=== PATIENT | male | born 1960 | race Caucasian/White ===

== ENCOUNTER 2023-11-04 22:18 | Observation (INO) | payer BC, SELFPAY ==
[2023-11-04] VITALS (7 sets, daily range): BP systolic 225–242; BP diastolic 110–134; PULSE 105–125; TEMP 36.6; O2SAT 92–94; BMI 38.6
--- NOTE | 2023-11-04 22:33 | ECG_ITS ---
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
--- NOTE | 2023-11-04 22:33 | XR_ITS ---
The [address] [address] Patient Name: ALBIN BARRY MRN: [id number] date: 1960 Sex: M Assigned Patient Location: ER Current Patient Location: ER Accession/Order Number: [id number] Exam Date: 11/04/2023 22:50 Report Date: 11/05/2023 00:19 At the request of: TIFFANIE SANCHEZ Procedure: XR chest 1V CXR HISTORY: Shortness of breath COMPARISON: None. TECHNIQUE: 1 view of the chest. FINDINGS: Lungs are adequately expanded. The cardiac silhouette measures enlarged. Pulmonary vascularity is increased. Osseous structures are within normal limits for age. XR/XR chest 1V IMPRESSION: Cardiomegaly with prominence of pulmonary vascularity. Please correlate for fluid overload. Electronically authenticated by: PREETHI CARTER Date: 11/05/2023 00:19
--- NOTE | 2023-11-04 22:35 | ED_ITS ---
HPI - SOB/Dyspnea General Chief Complaint: Shortness of Breath/Dyspnea Stated Complaint: Shortness of Breath Time Seen by Provider: 11/04/23 22:28 History of Present Illness HPI Narrative: history of HTN. Has not taken meds for at least 2 months for his BP. Tonight presents with mild sensation of shortness of breath that started about 30 min ago. No associated chest pain or nausea. Dyspnea sensation does not change when walking Related Data Home Medications ?Medication ?Instructions ?Recorded ?Confirmed aspirin 81 mg capsule 81 mg PO DAILY 11/04/23 11/04/23 Allergies Allergy/AdvReac Type Severity Reaction Status Date / Time No Known Drug Allergies Allergy Verified 11/04/23 22:26 Review of Systems ROS Status of ROS 10 or more systems reviewed and unremark able except as noted in history and below PFSH PFSH Social History Little interest or pleasure in doing things: not at all Feeling down, depressed, or hopeless: not at all Exam Constitutional Vital Signs, click to edit/add: Last Vital Signs Temp 97.8 F 11/04/23 22:22 Pulse 103 H 11/05/23 00:18 Resp 18 11/05/23 00:18 BP 223/111 H 11/05/23 00:18 Pulse Ox 99 11/05/23 00:18 O2 Del Method Room Air 11/05/23 00:18 Common normals: no apparent distress, average body habitus, oriented x3, no limitations, healthy appearing, alert and well nourished [facility] Common normals: normocephalic and head/scalp atraumatic Eye Common normals: EOMs intact bilaterally and conjunctivae normal Respiratory Common normals: normal respiratory effort, no retractions, no use of accessory muscles and clear to auscultation bilaterally Cardio Common normals: regular rate, regular rhythm, S1 normal heart sound and S2 normal heart sound GI Common normals: Normal to inspection, nondistended, normoactive bowel sounds present, soft to palpation and non-tender Extremity Common normals: normal to inspection and full ROM Neuro Common normals: oriented x3, CN's II-XII intact bilaterally, moves all extremities and no focal motor deficits Psych Appearance: grossly normal Course Vital Signs Vital signs: Vital Signs Temperature 97.8 F 11/04/23 22:22 Pulse Rate 125 H 11/04/23 22:22 Respiratory Rate 18 11/04/23 22:22 Blood Pressure 242/134 H 11/04/23 22:22 Pulse Oximetry 92 L 11/04/23 22:22 Oxygen Delivery Method Room Air 11/04/23 22:22 Temperature 97.8 F 11/04/23 22:22 Pulse Rate 103 H 11/05/23 00:18 Respiratory Rate 18 11/05/23 00:18 Blood Pressure 223/111 H 11/05/23 00:18 Pulse Oximetry 99 11/05/23 00:18 Oxygen Delivery Method Room Air 11/05/23 00:18 MDM - SOB/Dyspnea MDM Narrative Medical decision making narrative: patient presents with complaint of shortness of breath. No chest pain. Past history of HTN but has not taken any BP meds for over 2 months. BP on arrival 242 systolic. BP improved to 192 systolic with treatment in the department. cxray with cardiomegaly and pulm. vascular congestion. EKG sinus tach without acute ST-T changes. Tropon and d-dimer neg. BNP pending. Discussed with hospitalist and patient accepted for admission Lab Data Labs: Lab Results 11/04/23 Range/Units 22:38 WBC 8.7 (4.0-11.0) 10^3/uL RBC 5.66 (4.70-6.10) 10^6/uL Hgb 16.5 (14.0-18.0) g/dL Hct 49.3 (42.0-54.0) % MCV 87.1 (80.0-94.0) fL MCH 29.2 (25.9-34.0) pg MCHC 33.5 (29.9-35.2) g/dL RDW 14.1 (11.0-15.0) % Plt Count 295 (150-450) 10^3/uL MPV 9.5 (9.5-13.5) fL Neut % (Auto) 47.1 (43.0-75.0) % Lymph % (Auto) 40.2 (20.5-60.0) % [place] % (Auto) 7.1 (1.7-12.0) % Eos % (Auto) 4.5 (0.9-7.0) % Baso % (Auto) 0.5 (0.2-2.0) % Neut # (Auto) 4.1 (1.4-6.5) 10^3/uL Lymph # (Auto) 3.5 (1.2-3.8) 10^3/uL [place] # (Auto) 0.6 (0.3-0.8) 10^3/uL Eos # (Auto) 0.4 (0.0-0.7) 10^3/uL Baso # (Auto) 0.0 (0.0-0.1) 10^3/uL Abs Immat Gran (auto) 0.05 H (0.00-0.03) 10^3/uL Imm/Tot Granulo (auto) 0.6 H (0.0-0.5) % D-Dimer 0.59 (<=0.59) mg/L FEU Sodium 138 (136-145) mmol/L Potassium 3.2 L (3.5-5.1) mmol/L Chloride 99 (98-107) mmol/L Carbon Dioxide 30.2 (21.0-32.0) mmol/L Anion Gap 12.0 BUN 13.0 (7.0-18.0) mg/dL Creatinine 1.22 (0.70-1.30) mg/dL Est GFR ( Amer) >60 (>=60) Est GFR (Non-Af Amer) >60 (>=60) BUN/Creatinine Ratio 10.7 Glucose 137 H (74-106) mg/dL Calcium 9.1 (8.5-10.1) mg/dL Troponin I High Sens 33.9 (4.0-76.1) pg/mL Imaging Data Chest x-ray: Radiologist's impression: ITS Impressions Chest X-Ray 11/04/23 22:33 IMPRESSION: Cardiomegaly with prominence of pulmonary vascularity. Please correlate for fluid overload. Electronically authenticated by: PREETHI CARTER Date: 11/05/2023 00:19 Discharge Plan Discharge Chief Complaint: Shortness of Breath/Dyspnea Clinical Impression: Congestive heart failure, Hypertension Patient Disposition: Admitted as Observation Prescriptions / Home Meds: No Action aspirin 81 mg capsule 81 mg PO DAILY Print Language: German Referrals: TIFFANIE MONTANEZ [Primary Care Provider] - 1 week
[2023-11-04 22:45] LABS: Basophils Percent Auto 0.5 % (0.2-2.0); Eosinophils Absolute Auto 0.4 10^3/uL (0.0-0.7); Eosinophils Percent Auto 4.5 % (0.9-7.0); Hematocrit 49.3 % (42.0-54.0); Hemoglobin 16.5 g/dL (14.0-18.0); Immature Granulocytes Abs Auto 0.05 10^3/uL (0.00-0.03); Immature Granulocytes Pct Auto 0.6 % (0.0-0.5); Lymphocytes Absolute Auto 3.5 10^3/uL (1.2-3.8); Lymphocytes Percent Auto 40.2 % (20.5-60.0); Mean Corpuscular HGB Conc 33.5 g/dL (29.9-35.2); Mean Corpuscular Hemoglobin 29.2 pg (25.9-34.0); Mean Corpuscular Volume 87.1 fL (80.0-94.0); Mean Platelet Volume 9.5 fL (9.5-13.5); Monocytes Absolute Auto 0.6 10^3/uL (0.3-0.8); Monocytes Percent Auto 7.1 % (1.7-12.0); Neutrophils Absolute Auto 4.1 10^3/uL (1.4-6.5); Neutrophils Percent Auto 47.1 % (43.0-75.0); Platelet Count 295 10^3/uL (150-450); Red Blood Count 5.66 10^6/uL (4.70-6.10); Red Cell Distribution Width 14.1 % (11.0-15.0); White Blood Count 8.7 10^3/uL (4.0-11.0)
[2023-11-04] MEDS: HYDRALAZINE HCL 20 MG/ML VIAL 5 MG IVP (22:47)
[2023-11-04] MEDS: CLONIDINE HCL 0.1 MG TABLET PO (22:48)
[2023-11-04 23:02] LABS: BUN Creatinine Ratio 10.7; Calcium 9.1 mg/dL (8.5-10.1); Carbon Dioxide 30.2 mmol/L (21.0-32.0); Chloride 99 mmol/L (98-107); Estimated GFR (African America >60 (>=60); Estimated GFR (Non-African Ame >60 (>=60); Glucose 137 mg/dL (74-106); Potassium 3.2 mmol/L (3.5-5.1); Sodium 138 mmol/L (136-145); Troponin I High Sensitivity 33.9 pg/mL (4.0-76.1)
[2023-11-04 23:08] LABS: D Dimer 0.59 mg/L FEU (<=0.59)
[2023-11-04] MEDS: HYDRALAZINE HCL 20 MG/ML VIAL 10 MG IVP (23:25)
[2023-11-05] VITALS (18 sets, daily range): BP systolic 143–223; BP diastolic 89–119; PULSE 66–103; TEMP 36.3–36.6; O2SAT 91–99; BMI 38.0
[2023-11-05] MEDS: CLONIDINE HCL 0.1 MG TABLET 0.2 MG PO (00:15)
[2023-11-05] MEDS: AMLODIPINE BESYLATE 5 MG TABLET 10 MG PO ×2 (02:09→08:41)
[2023-11-05] MEDS: POTASSIUM BICARBONATE/CIT 25 MEQ TABLET EFF 50 MEQ PO (02:09)
[2023-11-05 02:56] LABS: Troponin I High Sensitivity 63.6 pg/mL (4.0-76.1)
[2023-11-05 06:10] LABS: Hematocrit 46.5 % (42.0-54.0); Hemoglobin 15.3 g/dL (14.0-18.0); Mean Corpuscular HGB Conc 32.9 g/dL (29.9-35.2); Mean Corpuscular Hemoglobin 28.8 pg (25.9-34.0); Mean Corpuscular Volume 87.6 fL (80.0-94.0); Platelet Count 283 10^3/uL (150-450); Red Blood Count 5.31 10^6/uL (4.70-6.10); Red Cell Distribution Width 14.2 % (11.0-15.0); White Blood Count 7.3 10^3/uL (4.0-11.0)
[2023-11-05 06:39] LABS: Estimated Average Glucose 131 mg/dL; Glycohemoglobin A1C 6.2 % (4.5-6.2)
[2023-11-05 06:48] LABS: Chol HDL Ratio 5.2; Cholesterol 208 mg/dL (<=200); HDL Cholesterol 40 mg/dL (40-60); Triglycerides 135 mg/dL (<=150)
[2023-11-05 06:49] LABS: Anion Gap 8.3; Carbon Dioxide 31.8 mmol/L (21.0-32.0); Chloride 103 mmol/L (98-107); Glucose 135 mg/dL (74-106); Potassium 4.1 mmol/L (3.5-5.1); Sodium 139 mmol/L (136-145)
[2023-11-05 06:50] LABS: Alanine Aminotransferase 31 U/L (16-63); Albumin Globulin Ratio 1.1; Albumin Level 3.5 g/dL (3.4-5.0); Alkaline Phosphatase 112 U/L (46-116); Aspartate Amino Transferase 18 U/L (15-37); BUN Creatinine Ratio 11.7; Bilirubin Total 1.1 mg/dL (0.2-1.0); Calcium 9.1 mg/dL (8.5-10.1); Estimated GFR (African America >60 (>=60); Estimated GFR (Non-African Ame >60 (>=60); Globulin 3.2 g/dL; Total Protein 6.7 g/dL (6.4-8.2)
[2023-11-05 06:52] LABS: Thyroid Stimulating Hormone 2.331 uIU/mL (0.358-3.740)
--- NOTE | 2023-11-05 07:00 | CA_ITS ---
Patient Name: ALBIN BARRY MR#: [id number] : 1960 Exam Date: 11/05/2023 Ordering Doctor: CLEO PORTILLO ECHOCARDIOGRAM REPORT PROCEDURE: CA ECHO DOPPLER COMPLETE INDICATIONS: Acute CHF COMPARISON: None. DESCRIPTION: COMPLETE ECHOCARDIOGRAM Real-time transthoracic echocardiography with 2D, M-mode, spectral and color flow Doppler performed. QUALITY: Technical quality was good. LEFT VENTRICLE: Normal chamber size. Moderate concentric left ventricular hypertrophy. LV EF: Global left ventricular systolic function is at lower normal limits; visually estimated ejection fraction is 50-55%. No obvious wall motion abnormalities. DIASTOLIC: Normal diastolic function. ATRIAL SEPTUM: Inadequately seen. LEFT ATRIUM: Normal chamber size. RIGHT ATRIUM: Normal chamber. RIGHT VENTRICLE: Normal chamber size. Normal right ventricular systolic function. TRICUSPID VALVE: Normal mobility and thickness. No stenosis with trivial regurgitation. No evidence of pulmonary hypertension. RVSP 17mmHg MITRAL VALVE: Normal mobility and thickness. No evidence of mitral valve stenosis. There is no mitral annular calcification. Trivial mitral regurgitation. AORTIC VALVE: Normal trileaflet appearance. Mildly calcified aortic valve. Mildly diminished mobility. No aortic valve stenosis. No aortic regurgitation. AORTIC ROOT: Normal diameter and appearance. PULMONIC VALVE: Normal thickness and mobility. No stenosis. Trivial regurgitation. PERICARDIUM: No evidence of pericardial effusion. IVC: Collapses with inspirations. Normal size. CONCLUSION: 1. Global left ventricular systolic function is lower normal limits; visually estimated ejection fraction is 50 to 55% 2. Normal right ventricular size and systolic function 3. Normal diastolic function 4. The left atrium is normal in size 5. Moderate left ventricular hypertrophy 6. No significant valvular abnormalities Adult Echocardiography Procedure Report Left Ventricle LVEDD (3.7 - 5.6 cm): 4.51 cm LVESD (2.2 - 4.0 cm): 3.74 cm LVIVS thickness (0.6 - 1.2 cm): 1.37 cm LVPW thickness (0.5 - 1.0 cm): 1.34 cm e': 0.06 m/s E - e': 11.74 LVOT Max Gradient: 2.38 mm-55 LVOT Area (cm2): 0.77 m/s Peak Velocity (LVOT): 0.77 m/s Mean Velocity (LVOT): 0.47 m/s LVOT Diameter 2.05 cm Left Ventricular Ejection Fraction: 49.27 % Left Atrium LA Volume Index (2D A2C): 35.84 ml/m2 Left Atrium Systolic Dimension: 4.19 cm Mitral Valve MV E to A Ratio: 1.17 Mitral Valve A-Wave Peak Velocity: 0.62 m/s Mitral Valve E-Wave Peak Velocity: 0.73 m/s Right Ventricle RV Internal Diastolic Dimension: 3.10 cm Aorta AO Root Diam: 3.15 cm Ascending Ao Diam: 2.76 cm Aortic Valve AoV Area (Peak Tyler): 1.64 cm2, 1.71 cm2 AoV Area (VTI): 1.84 cm2, 1.95 cm2 Peak Velocity(Antegrade Flow): 1.50 m/s, 1.62 m/s Peak Gradient(Antegrade Flow): 8.94 mm[Hg], 10.55 mm[Hg] Mean Velocity(Antegrade Flow): 1.11 m/s, 1.16 m/s Mean Gradient(Antegrade Flow): 5.56 mm[Hg], 6.07 mm[Hg] Velocity Time Integral: 30.89 cm, 34.69 cm Tricuspid Valve Peak Velocity (Regurgitant Flow): 1.85 m/s, 1.90 m/s, 1.88 m/s Pulmonic Valve Mean Gradient: 1.70 mm[Hg] Mean Velocity: 0.61 m/s Peak Velocity: 0.87 m/s, 0.86 m/s Peak Gradient: 3.06 mm[Hg], 2.96 mm[Hg] Right Atrium Right Atrium Systolic Pressure: 56.78 ml, 56.78 ml Dictated by: Seferino Daley M.D. on 11/07/2023 at 08:44 Approved by: Seferino Daley M.D. on 11/07/2023 at 08:48
[2023-11-05] MEDS: CARVEDILOL 25 MG TABLET PO (08:41)
[2023-11-05] MEDS: FUROSEMIDE 40 MG/4 ML VIAL IVP (08:41)
[2023-11-05] MEDS: ASPIRIN 81 MG TABLET.DR PO (08:41)
[2023-11-05] MEDS: LOSARTAN POTASSIUM 50 MG TABLET 100 MG PO (08:41)
--- NOTE | 2023-11-05 10:19 | CM.NOTE ---
Rounds made with Dr. Edward. Dr. Edward reviews findings with Mr. Todd and medication changes/adjustments. Mr. Todd verbalizes understanding. Potential discharge later today.
--- NOTE | 2023-11-05 11:06 | PM.HP ---
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 His BP on arrival was as high as 240/120. Work up in ED also revealed vascular congestion on CXR. Patient's BP was treated overnight with clonidine, IV hydralazine and he was treated with IV lasix for SOB sec to volume overload. Patient was seen earlier today and reported that he felt better and had no active symptoms to offer. He reports not using his BP meds for over a month now. Denies CP, SOB, palpitations. Denies prior hx of CAD/CHF. He is unsure of his medication list. He was started on amlodipine/coreg at night and I added losartan to his BP regimen. ECHO ordered to assess cardiac structure (unofficial reading) revealed mildly reduced EF. Patient's BP is better with resumption of his antihypertensives. He will need close f/u as outpatient. patient instructed to check BP at home, maintain home BP log and F/u with PCP so that his medications could be adjusted as outpatient. Patient educated on worrisome signs and symptoms including CP, SOB, neurological weakness/numbness that should prompt him to seek care in ED. Medically stable for discharge. Opioid HPI Opioid Management Most Recent Pain and Opioid Data: Last Pain Assessment 11/05/23 13:11 Last ORT Total Score 0 11/05/23 02:00 Last ORT Risk Category Low Risk 11/05/23 02:00 Review of Systems ROS Status of ROS 10 or more systems reviewed and unremarkable except as noted in history and below PFSH PFS Medical History (Updated 11/05/23 @ 14:20 by Shaikh Cheyanne MD) Acute on chronic diastolic heart failure ?I50.33 - Acute on chronic diastolic (congestive) heart failure (ICD-10) HLD (hyperlipidemia) ?E78.5 - Hyperlipidemia, unspecified (ICD-10) Hypertension ?I10 - Essential (primary) hypertension (ICD-10) Family History (Updated 11/05/23 @ 01:51 by Madison Donovan) Grandmother Family history of CHF (congestive heart failure) Mother Family history of cancer Family history of hypertension Family history of myocardial infarction Family history of stroke Father Family history of cancer Social History (Updated 11/05/23 @ 11:13 by Shaikh Cheyanne MD) Within the past year, how often did you have a drink containing alcohol: monthly or less Do you use any of these nicotine containing products: smokeless tobacco Non-prescribed substance use: denies use 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 Highest level of school completed/degree received: 12th grade, no diploma Are you now , , , , never or living with a partner: In a typical week, how many times do you talk on the telephone with family, friends, or neighbors: never How often do you get together with friends or relatives: never Little interest or pleasure in doing things: not at all Feeling down, depressed, or hopeless: not at all Feel stressed/tense/nervous/anxious/difficulty sleeping: not at all Meds Home Medications and Allergies Home Medications ?Medication ?Instructions ?Recorded ?Confirmed ?Type aspirin 81 mg capsule 81 mg PO DAILY 11/04/23 11/04/23 History chlorthalidone 25 mg tablet 25 mg PO DAILY 11/05/23 11/05/23 History Allergies Allergy/AdvReac Type Severity Reaction Status Date / Time No Known Drug Allergies Allergy Verified 11/04/23 22:26 Exam Constitutional Vital Signs, click to edit/add: Last Vital Signs Temp 97.7 F 11/05/23 08:48 Pulse 74 11/05/23 10:00 Resp 16 11/05/23 08:48 BP 190/109 H 11/05/23 08:48 Pulse Ox 94 L 11/05/23 08:48 O2 Del Method Room Air 11/05/23 08:48 Results Labs Labs: Short CBC 11/04/23 11/05/23 Range/Units 22:38 05:25 WBC 8.7 7.3 (4.0-11.0) 10^3/uL Hgb 16.5 15.3 (14.0-18.0) g/dL Hct 49.3 46.5 (42.0-54.0) % Plt Count 295 283 (150-450) 10^3/uL BMP 11/04/23 11/05/23 22:38 05:25 Sodium 138 139 Potassium 3.2 L 4.1 Chloride 99 103 Carbon Dioxide 30.2 31.8 BUN 13.0 12.0 Creatinine 1.22 1.03 Glucose 137 H 135 H Calcium 9.1 9.1 Liver Function 11/05/23 Range/Units 05:25 Total Bilirubin 1.1 H (0.2-1.0) mg/dL AST 18 (15-37) U/L ALT 31 (16-63) U/L Alkaline Phosphatase 112 (46-116) U/L Albumin 3.5 (3.4-5.0) g/dL Assessment and Plan Assessment and Plan (1) Hypertensive emergency: Assessment and Plan: Poorly controlled BP. Initial readings were 240/120. Slowly brought down with oral clonidine,IV hydralazine and resuming his home medications p/w SOB due to volume overload - symptoms resolved now with IV lasix. No prior hx of CHF. Trop x 3 negative. Patient has resistant HTN and will benefit from w/u for secondary causes of HTN. He is also obese and will benefit from weight loss. (2) Acute on chronic systolic (congestive) heart failure: Assessment and Plan: Cardiomegaly and increased vascular congestion on CXR. ECHO shows Mildly reduced EF (40%) that is an unofficial read. Awaiting full ECHO report by Industrial Truck Operator. Needs strict BP control. Educated on dietary restrictions. He will also need outpatient stress test and f/u with Cardiology. (3) HLD (hyperlipidemia): Assessment and Plan: Not using Statin - resume 20 mg Lipitor. He was on 80 mg as outpatient. Qualifiers: Hyperlipidemia type: unspecified Qualified Code(s): E78.5 - Hyperlipidemia, unspecified Plan Stable for discharge on Coreg 25 q12, Amlodipine 10 mg, Lasix 20 mg, Losartan 100, Aldactone 50 mg. He will need outpatient stress test and f/u with Cardiology for new onset HFrEF He was instructed to measure BP at home, and f/u with PCP with home BP log so that his medications can be adjusted according to his Home BP.
[2023-11-05] MEDS: SPIRONOLACTONE 25 MG TABLET 50 MG PO (13:10)
--- NOTE | 2023-11-07 11:54 | CM.DCFOLLOWU ---
Person spoke with: patient How are you feeling? well How is your pain? none Did you understand your discharge instructions? yes Do you have any questions about your discharge instructions? no Were you given any prescriptions at discharge? yes Were you able to get your prescriptions filled?yes Do you understand how to take your medications as ordered?yes Do you have any questions about your follow up appointment and do you plan to keep your follow up appointment? no questions, follow up reviewed Is there anything else that you would like to discuss? no Questions/Comments/Concerns/Other:none
== END 2023-11-05 15:15 | disposition home or self-care (01) ==
LOC: ER 11-05 00:45 → MS 11-05 01:35
PROVIDERS: Registered Nurse; Admitting Provider Internal Medicine; Emergency Provider Internal Medicine; PCP Internal Medicine; Visit Provider Internal Medicine
DX: I16.1 Hypertensive emergency (principal); I11.0 Hypertensive heart disease with heart failure; I50.23 Acute on chronic systolic (congestive) heart failure; I1A.0 Resistant hypertension; Z79.899 Other long term (current) drug therapy; E78.5 Hyperlipidemia, unspecified; F17.220 Nicotine dependence, chewing tobacco, uncomplicated
CPT/HCPCS: 36415; 71045; 80048; 80053; 80061; 83036; 83880; 84443; 84484; 85025; 85027; 85378; 93005; 93306; 93356; 96374; 96375; 96376; 99285; G0378; J0360; J1940

== ENCOUNTER 2023-11-24 08:33 | Outpatient (OUT) | payer BC, SELFPAY ==
--- OUTSIDE RECORDS SUMMARY | 2023-11-24 08:37 | XMS_ITS | CCD ---
Author Organization [place] [facility] [facility] Care Team Providers Care Airplane Patrol Pilot Name Role Phone TIFFANIE MONTANEZ ROBERT Unavailable Unavailable TIFFANIE MONTANEZ Unavailable Unavailable MIS, DR HUERTA Primary Care Unavailable LISSETH, DR MORENO Attending Unavailable LISSETH, DR MORENO Consulting Unavailable LISSETH, DR MOREON Admitting Unavailable TIFFANIE MONTANEZ Attending Unavailable TIFFANIE MONTANEZ Referring Unavailable Problems Problem Classification Problem Date Documented Date Episodic/Chronic Coronary atherosclerosis and other heart disease (2 sources) Coronary atherosclerosis and other heart disease Onset: 02-06-2017 Disorders of lipid metabolism (1 source) Mixed hyperlipidemia; Translations: [Mixed hyperlipidemia] Onset: 02-06-2017 Chronic Other nutritional; endocrine; and metabolic disorders (4 sources) Hypercalcemia; Translations: [HYPERCALCEMIA] Onset: 01-26-2021 Chronic Results Test Name Value Interpretation Reference Range Facility Basic Metabolic Panelon 03-0 Anion gap [Moles/Vol] 19 mmol/L Normal 12-[address] [facility] [address] [facility] [employer] Comment on above: Result Comment: Effe ctive 02/17/2019 reference range changed. Performed By: #### B MP #### [facility] [address] [place], [place] [id number] Calcium [Mass/Vol] 9.9 mg/dL Normal 8.6-10.[address] [facility] [address] [facility] [employer] Comment on above: Performed By: #### B MP #### [facility] [address] [place], [place] [id number] Chloride [Moles/Vol] 99 mmol/L Normal 98-107 [facility] [address] [employer] Comment on above: Performed By: #### B MP #### [facility] [address] [place], [place] [id number] CO2 [Moles/Vol] 25 mmol/L Normal 20-31 [facility] Comment on above: Performed By: #### B MP #### [facility] [address] [place], [place] [id number] Creatinine [Mass/Vol] 1.4 mg/dL Normal 0.7-1.4 [facility] Comment on above: Performed By: #### B MP #### [facility] [address] [facility] [place] [id number] eGFRAA 64 mL/min/1.73m2 Normal >60 [facility] Comment on above: Performed By: #### B MP #### [facility] [address] [place] [id number] eGFRNAA 53 mL/min/1.73m2 Low >60 [facility] Comment on above: Performed By: #### B MP #### [facility] [address] [place], [place] [id number] Glucose [Mass/Vol] 120 mg/dL High 65-99 [facility] Comment on above: Result Comment: For FASTING Glucose --- ADA reference ranges: Normal 65-99 mg/dl Prediabetes 100-125 Diabetes >/= 126 Performed By: #### B MP #### [facility] [address] [place], [place] [id number] Potassium [Moles/Vol] 4.4 mmol/L Normal 3.5-5.5 [facility] Comment on above: Performed By: #### B MP #### [facility] [address] [facility] [place] [id number] Sodium [Moles/Vol] 139 mmol/L Normal 135-146 [facility] Comment on above: Performed By: #### B MP #### [facility] [address] [facility] [place] [id number] Urea nitrogen [Mass/Vol] 28 mg/dL High 7-25 [facility] Specialist Comment on above: Performed By: #### B MP #### [facility] [address] [place], [place] [id number] Hemoglobin A1Con 04-20-2021 EAG 145.59 Normal [facility] Comment on above: Performed By: #### A 1C #### [facility] [address] [place], [place] [id number] HbA1c (Bld) [Mass fraction] 6.7 % High 4.0-6.[address] [facility] [address] [facility] [employer] Comment on above: Performed By: #### A 1C #### [facility] [address] [place], [place] [id number] PROF CHEM 8 (BAS METB)on Anion gap [Moles/Vol] 10.4 mmol/L Normal [facility] Comment on above: Performed By: #### B MP #### [facility] [address] [place] [address] [address] Angela Abraham Calcium [Mass/Vol] 10.0 mg/dL Normal 8.4-10.2 [facility] Comment on above: Performed By: #### B MP #### [facility] [address] [address] [address] Angela Abraham Chloride [Moles/Vol] 99 mmol/L Normal 98-[address] [facility] Comment on above: Performed By: #### B MP #### [facility] [address] [address] [address] Angela Abraham CO2 [Moles/Vol] 31.9 mmol/L Critically high 22.0-30.[address] [facility] Comment on above: Performed By: #### B MP #### [facility] [address] [address] [address] Angela Abraham Creatinine [Mass/Vol] 1.31 mg/dL Critically high 0.66-1.[address] [facility] Comment on above: Performed By: #### B MP #### [facility] [address] [address] [address] Angela Abraham EGFR-AF NEW ZEALANDER >60 Normal >=60 [facility] Comment on above: Performed By: #### B MP #### [facility] [address] [address] [address] Angela Abraham EGFR-NON AF NEW ZEALANDER 56 mL/min/1.73m2 Critically low >=[address] [facility] Comment on above: Performed By: #### B MP #### [facility] [address] [address] [address] Angela Abraham Glucose [Mass/Vol] 112 mg/dL Critically high 74-106 [facility] Comment on above: Performed By: #### B MP #### [facility] [address] [address] [address] Angela Abraham Potassium [Moles/Vol] 4.3 mmol/L Normal 3.4-5.[address] [facility] Comment on above: Performed By: #### B MP #### [facility] [address] [address] [address] Angela Abraham Sodium [Moles/Vol] 137 mmol/L Normal 137-145 [facility] Comment on above: Performed By: #### B MP #### [facility] [address] [address] [address] Angela Abraham Urea nitrogen [Mass/Vol] 28.0 mg/dL Critically high 9.0-20.[address] [facility] Comment on above: Performed By: #### B MP #### [facility] [address] [address] [address] Angela Abraham Urea nitrogen/Creatinine [Mass ratio] 21.4 mg/mg Normal [facility] Comment on above: Performed By: #### B MP #### [facility] [address] [address] [address] Angela Abraham Q - PROTEIN ELECTROPHORESIS, WITH TOTAL PROTEIN AND RFX TO IFon 01-14-2021 Albumin [Mass/Vol] 4.3 g/dL Normal 3.8-4.[address] [facility] [address] [employer] Comment on above: Order Comment: [facility] Testing performed at: [facility], [facility], [address] [facility], [address] [place] [address], [place], [id number], Compliance Review Officer: Remington Montiel MD [facility] Collection Date/Time: [facility] Results Received Date/Time: [facility] Reported Date/Time: Performed By: #### 1 0269 #### [facility] [address] [place] [address] ALPHA 1 GLOBULIN 0.3 g/dL Normal 0.2-0.[address] [place] [address] [employer] Comment on above: Order Comment: [facility] Testing performed at: [facility], [facility], [address] [facility], [address] [place] [address], [address] [place] [address], Compliance Review Officer: Remington Montiel MD [facility] Date/Time: [facility] Results Received Date/Time: [facility] Reported Date/Time: Performed By: #### 1 0269 #### [facility] [address] [place] [address] ALPHA 2 GLOBULIN 1.0 g/dL High 0.5-0.[address] [place] [address] [facility] [employer] Comment on above: Order Comment: [facility] performed at: [facility], [facility], [address] [facility], [address] [place] [address], [address] [place] [address], Compliance Review Officer: Remington Montiel MD [facility] Date/Time: [facility] Results Received Date/Time: [facility] Reported Date/Time: Performed By: #### 1 0269 #### [facility] [address] [place] [address] BETA 1 GLOBULIN 0.5 g/dL Normal 0.4-0.[address] [place] [address] [employer] Comment on above: Order Comment: [facility] performed at: [facility], [facility], [address] [place] , [address] [place] [address], [address] [place] [address], Compliance Review Officer: Remington Montiel MD [facility] Date/Time: [facility] Results Received Date/Time: [facility] Reported Date/Time: Performed By: #### 1 0269 #### [facility] [address] [place] [address] BETA 2 GLOBULIN 0.4 g/dL Normal 0.2-0.[address] [place] [address] [employer] Comment on above: Order Comment: [facility] performed at: Q, [facility], [address] [facility], [address] [place] [address], [address] [place] [address], Compliance Review Officer: Remington Montiel MD [facility] Date/Time: [facility] Results Received Date/Time: [facility] Reported Date/Time: Performed By: #### 1 0269 #### [facility] [address] [place] [address] GAMMA GLOBULIN 1.0 g/dL Normal 0.8-1.7 [facility] Specialist Comment on above: Order Comment: [facility] performed at: [employer], [facility], [address] [place] , [address] [place] [address], [address] [place] [address], Compliance Review Officer: Remington Montiel MD [facility] Date/Time: [facility] Results Received Date/Time: [facility] Reported Date/Time: Performed By: #### 1 0269 #### [facility] [address] [place] [address] INTERPRETATION Isolated elevation o f alpha-2 globulins. Suggestive of acute inflammation. Normal [facility] Comment on above: Order Comment: [facility] performed at: [employer], [facility], [address] [place] , [address] [place] [address], [address] [place] [address], Compliance Review Officer: Remington Montiel MD [facility] Date/Time: [facility] Results Received Date/Time: [facility] Reported Date/Time: Performed By: #### 1 0269 #### [facility] [address] [place] [address] Protein [Mass/Vol] 7.5 g/dL Normal 6.1-8.1 [facility] Comment on above: Order Comment: [facility] performed at: [employer] [employer], [facility], [address] [place] , [address] [place] [address], [address] [place] [address], Compliance Review Officer: Remington Montiel MD [facility] Date/Time: [facility] Results Received Date/Time: [facility] Reported Date/Time: Performed By: #### 1 0269 #### [facility] [address] [place] [address] OVER READ - NCon 02-07-20 17 OVER READ - NC DATE OF EXAM: Feb 06 2017 12:25PMCLINICAL HISTORY/ Name: ALBIN BARRYSTUDY: OVER READ - NC; 02/06/2017 12:25 pmINDICATION:score. Hypertension and hypercholesterolemia. Smoking history. Screening.COMPARISON:N one. [facility]:TIFFANIE VALE:Hipolito hendrix unenhanced axial images were obtained through the mid chest for calcium score evaluation. Calcium score portion will be interpreted separately. Images are submitted for over-read.FINDINGS:No lymphadenopathy is seen. No pericardial effusion. Included esophageal segment and included portion of the upper abdomen are unremarkable. There is mild linear atelectasis versus scar of the lingula. No pleural effusion or pneumothorax is seen. Multilevel anterior endplate spurring present in the lower thoracic spine.CONCLUSION: IMPRESSION:No significant incidental findings.This interpretation, provided by the radiologists of [facility], excludes evaluation of the cardiovascular system, which iscovered in a separate report issued by the ordering cardiologists. The radiologists of [facility] have no responsibilityfor evaluating the structures of the cardiovascular system. Normal [facility] Healthcare Encounters Encounter Date Encounter Type Care Provider Facility Start: 11-12-2023 End: 11-12-2023 ambulatory TIFFANIE MONTANEZ Not Available Start: 01-26-2021 End: 01-27-[address] DOCTOR RAYGOZA Facility:H1 Start: 02-06-2017 Ambulatory TIFFANIE MONTANEZ Facility :[id number] Start: 02-06-2017 Ambulatory Facility:9 573 Payers Date Payer Category Payer Unknown [id number] 1960 Unknown [id number] 1960 Unknown [id number] 1958 Unknown [id number] Unknown JHONNY TALAMANTES Summary Purpose Family History No Family History Records FoundNo Family History Records FoundNo Family History Records FoundNo Family History Records FoundNo Family History Records Found Advance Directives No Advanced Directives Records FoundNo Advanced Directives Records FoundNo Advanced Directives Records FoundNo Advanced Directives Records FoundNo Advanced Directives Records Found Additional Source Comments (unrecognized sect ion and content) No Status Records FoundNo Status Records FoundNo Status Records FoundNo Status Records FoundNo Status Records Found INFORMATION SOURCE (unrecogn ized section and content) DATE CREATED AUTHOR 08/07/2017 [facility] DATE CREATED AUTHOR AUTHOR'S ORGANIZ ATION 08/07/2017 [facility] DATE CREATED AUTHOR AUTHOR'S ORGANIZ ATION 02/01/2021 [facility] DATE CREATED AUTHOR AUTHOR'S ORGANIZ ATION 04/22/2021 [facility] Special[facility] DATE CREATED AUTHOR AUTHOR'S ORGANIZ ATION 11/13/2023 [facility] Specialists [facility] FOR RECORDS PERTAINING TO PATIENTS WHO ARE OR HAVE BEEN ENROLLED IN A CHEMICAL DEPENDENCY/SUBSTANCEABUSE PROGRAM, SOME INFORMATION MAY BE OMITTED. This clinical summary was aggregated from multiple sources. Caution should be exercised in using it in the provision of clinical care. This summary normalizes information from multiple sources, and as a consequence, information in this document may materially change the coding, format and clinical context of patient data. In addition, data may be omitted in some cases. CLINICAL DECISIONS SHOULD BE BASED ON THE PRIMARY CLINICAL RECORDS. [facility] [employer] [facility]. provides no warranty or guarantee of the accuracy or completeness of information in this document.
[2023-11-24 09:35] LABS: Creatinine Urine Random 97.22 mg/dL (20.00-300.00); Microalbum Creatinine Ratio Ur 16.4 mg/g (0.0-29.9); Microalbumin Urine Random 1.6 mg/dL (<=30.0)
[2023-11-24 10:02] LABS: Prostate Specific Antigen Scrn 2.14 ng/mL (<=4.00)
[2023-11-24 10:12] LABS: Alanine Aminotransferase 45 U/L (16-63); Albumin Globulin Ratio 1.1; Albumin Level 3.9 g/dL (3.4-5.0); Alkaline Phosphatase 123 U/L (46-116); Anion Gap 15.6; Aspartate Amino Transferase 29 U/L (15-37); BUN Creatinine Ratio 12.8; Bilirubin Total 1.7 mg/dL (0.2-1.0); Calcium 9.6 mg/dL (8.5-10.1); Carbon Dioxide 23.2 mmol/L (21.0-32.0); Chloride 102 mmol/L (98-107); Chol HDL Ratio 3.4; Cholesterol 138 mg/dL (<=200); Estimated GFR (African America >60 (>=60 mL/min/1.73m^2); Estimated GFR (Non-African Ame >60 (>=60 mL/min/1.73m^2); Globulin 3.7 g/dL; Glucose 146 mg/dL (74-106); HDL Cholesterol 41 mg/dL (40-60); LDL Cholesterol Calculated 73.2 mg/dL; Potassium 4.8 mmol/L (3.5-5.1); Sodium 136 mmol/L (136-145); Total Protein 7.6 g/dL (6.4-8.2); Triglycerides 119 mg/dL (<=150); VLDL CHOLESTEROL 23.8 mg/dL
== END 2023-11-24 08:34 | disposition home or self-care (01) ==
LOC: LAB 08:35
PROVIDERS: PCP Internal Medicine; Visit Provider Internal Medicine
DX: I50.1 Left ventricular failure, unspecified (principal); I11.9 Hypertensive heart disease without heart failure; Z12.5 Encounter for screening for malignant neoplasm of prostate
CPT/HCPCS: 36415; 80053; 80061; 82043; 82172; 82570; 83880; G0103

== ENCOUNTER 2024-10-25 09:13 | Outpatient (OUT) | payer BC, SELFPAY ==
--- OUTSIDE RECORDS SUMMARY | 2024-10-25 09:17 | XMS_ITS | Encounter Summary ---
Author Organization [facility] Address [id number] [address] [place] [address] Care Team Providers Care Clerical Manager Name Role Phone Edgard Wright DO Primary Care Provider [phone]- [phone] Reason for Visit * Reason Comments Med Refill Encounter Details Date Type Department Care Team (Late st Contact Info) Description 10/23/2016 Refill [facility] [address] [place] [address] [place] [address] Bowen Bryant DO [address] [facility] [address] Social History Tobacco Use Types Packs/Day Years Used Date Smoking Tobacco: Never Assessed Sex and Gender Information Value Date Recorded Sex Assigned at Not on file Legal Sex Male 11:35 AM EDT Gender Identity Not on file Sexual Orientation Not on file documented as of this encounter Miscellaneous Notes * Telephone Encounter - Bowen Bryant DO - 10/23/2016 5:21 PM EDT Pt needs appt some time before he runs out of med documented in this encounter Plan of Treatment Not on file documented as of this encounter Visit Diagnoses Not on filedocumented in this encounter Care Teams Clerical Manager Relationship Specialty Start Date End Date Edgard Wright DO [address] [place] [address] PCP - General 03/05/17 documented as of this encounter
--- OUTSIDE RECORDS SUMMARY | 2024-10-25 09:17 | XMS_ITS | Clinical Summary ---
Author Organization [facility] Address [address] [place] [address] Phone Care Team Providers Care Coconut Jelly Roller Name Role Phone Unavailable Primary Care Provider Unavailabl e Social History Tobacco Use Types Packs/Day Years Used Date Smoking Tobacco: Never Assessed Sex and Gender Information Value Date Recorded Sex Assigned at Not on file Legal Sex Male 10:10 AM EST Gender Identity Not on file Sexual Orientation Not on file Plan of Treatment Not on file
--- OUTSIDE RECORDS SUMMARY | 2024-10-25 09:17 | XMS_ITS | Clinical Summary ---
Author Organization [employer] [facility] Address [id number] [address] [place] [address] Care Team Providers Care Info Specialist Name Role Phone Edgard Wright DO Primary Care Provider [phone] Allergies No known active allergies Medications metoprolol tartrate (LOPRESSOR) 100 mg tablet Take 100 mg by mouth 2 (two) times a day. Active amLODIPine (NORVASC) 10 mg tablet Take 10 mg by mouth daily. Active furosemide (LASIX) 20 mg tablet Take 20 mg by mouth daily. Active pramipexole (MIRAPEX) 0.5 mg tablet Take 0.5 mg by mouth daily. Active Family History Medical History Relation Name Comments Heart attack Brother Heart attack Mother Relation Name Status Comments Brother Alive Father Alive Mother Alive Sister Alive Social History Tobacco Use Types Packs/Day Years Used Date Smoking Tobacco: Never Smokeless Tobacco: Current Snuff Alcohol Use Standard Drinks/Week Comments Yes 0 (1 standard drink = 0.6 oz pur e alcohol) occasional Childcare Answer Date Recorded Childcare Unknown 07/24/2018 Employment Answer Date Recorded Employment Unknown 07/24/2018 Purpose - Life Answer Date Recorded Purpose and direction in life Unknown Sex and Gender Information Value Date Recorded Sex Assigned at Not on file Legal Sex Male 11:35 AM EDT Gender Identity Not on file Sexual Orientation Not on file Last Filed Vital Signs Vital Sign Reading Time Taken Comments Blood Pressure 132/76 02/23/2016 2:25 PM EST Pulse 76 02/23/2016 2:25 PM EST Temperature - - Respiratory Rate 16 03/07/2017 8:14 AM EST Oxygen Saturation - - Inhaled Oxygen Concentration - - Weight 104.3 kg (230 lb) 03/07/2017 8:14 AM EST Height 162.6 cm (5' 4 ) 03/07/2017 8:14 AM EST Body Mass Index 39.48 03/07/2017 8:14 AM EST Plan of Treatment Health Maintenance Due Date Last Done Comments Depression Screening 1973 Tobacco Screening 1973 Adult BMI Screening 12/14/1979 DTaP,Tdap and Td Vaccines (1 - Tdap) 1980 Zoster (Shingles) Vaccine (1 of 2) 12/14/2011 Influenza Vaccine 10/13/2024 Medical Devices Not on file Insurance [employer] Member Subscriber Plan / Payer (Ef fective 2017-Present) Name:Roel Todd Relation to Subscriber:Self Name:Roel Todd Payer ID:Not on file Type:Not on file Address: [place] [id number] Care Teams Info Specialist Relationship Specialty Start Date End Date Edgard Wright DO [address] [place] [address] PCP - General 03/05/17
--- OUTSIDE RECORDS SUMMARY | 2024-10-25 09:17 | XMS_ITS | Clinical Summary ---
Author Organization [facility] Address [address] [place] [address] Care Team Providers Care Order Control Clerk Blood Bank Name Role Phone Edgard Wright DO Unavailable [phone] Mayte Sewell MD Unavailable [phone] Allergies Active Allergy Reactions Criticality Noted Date Comments Semaglutide Other: See Comments 01/29/2024 dizziness Spironolactone Other: See Comments 01/29/2024 Breast tenderness Medications amLODIPine (NORVASC) 5 mg tablet Take 5 mg by mouth once daily. 11/30/19 24 Active aspirin, enteric coated (ASPIRIN, ENTERIC COATED) 81 mg EC tablet Take 81 mg by mouth once daily. Active carvedilol (COREG) 25 mg tablet Take 25 mg by mouth two times a day with meals. Active eplerenone (INSPRA) 50 mg tablet Take 50 mg by mouth two times a day. Active isosorbide mononitrate ER (IMDUR) 60 mg 24 hr tablet Take 60 mg by mouth once daily. 12/17/19 24 025 Active losartan (COZAAR) 100 mg tablet Take 100 mg by mouth once daily. 11/05/19 24 Active MOUNJARO 2.5 mg/0.5 mL pen injector Inject 5 mg subcutaneously one time a week. 11/23/19 24 Active nitroglycerin sublingual (NITROQUICK) 0.4 mg SL tablet Dissolve 0.4 mg under the tongue every 5 minutes as needed. 12/17/19 24 025 Active atorvastatin (LIPITOR) 40 mg tablet Take 1 tablet by mouth once daily. 90 tablet 3 03/31/19 25 Active Encounters Date Type Department Care Team Description 09/24/2024 Patient [facility] HB-[address] [place] [address] Tiffany Sanchez RPh At your next appointment, choose [facility]. 08/30/2024 Telephone Cardiology [address] [id number] Mayte Sewell MD Appointment (Dr. Sewell will be out of the office on November 24, so the appointment has been canceled and rescheduled for December 29. I spoke with the patient this morning, and he said the new day and time were okay.) from Last 3 Months Family History Medical History Relation Comments No Known Problems Brother Cancer Father Coronary Artery Disease Mother stents Heart Attack Mother Hypertension Mother Stroke Mother No Known Problems Sister Relation Status Comments Brother Alive Father Mother Sister Alive Social History Tobacco Use Types Packs/Day Years Used Date Smoking Tobacco: Never Smokeless Tobacco: Current Snuff Tobacco Cessation:Ready to Q uit: Not Asked; Counseling Given: Not Answered Alcohol Use Standard Drinks/Week Comments Yes 0 (1 standard drink = 0.6 oz pur e alcohol) [facility] Area Deprivation Index Answer Date Rahul rded National Score (1-100), lower number is lower ri sk 64 01/29/2024 State Score (1-10), lower number is lower risk 4 01/29/2024 Data from: https://www.neigh borhoodatlas.medicine.[facility]/. Last address used for calculation [address] 01/29/2024 Sex and Gender Information Value Date Recorded Sex Assigned at Male 03/31/2024 6:54 PM EST Legal Sex Male 9:18 AM EST Gender Identity Not on file Sexual Orientation Not on file Last Filed Vital Signs Vital Sign Reading Time Taken Comments Blood Pressure 146/73 05/21/2024 8:12 AM EDT Pulse 82 05/21/2024 8:12 AM EDT Temperature 36.2 C (97.2 F) 04/08/2024 9:31 AM EST Respiratory Rate 15 05/21/2024 8:12 AM EDT Oxygen Saturation 97% 05/21/2024 8:12 AM EDT Inhaled Oxygen Concentration - - Weight 96.4 kg (212 lb 9.6 oz) 05/21/2024 8:12 A M EDT Height 162.6 cm (5' 4 ) 05/21/2024 8:12 AM EDT Body Mass Index 36.49 05/21/2024 8:12 AM EDT Plan of Treatment Upcoming Encounters Date Type Department Care Team (Late st Contact Info) Description 12/29/2024 10:00 AM EST Results Only Main [place] [facility] Draw Station [address] [id number] LAB WORK 12/29/2024 10:30 AM EST Office Visit Cardiology [address] [place] [address] Mayte Sewell MD [address] [place] [address] DX: Cath follow up Established intervention patient Health Maintenance Due Date Last Done Comments Diabetic Foot Exam 12/14/1971 Dilated Retinal Exam 12/14/1971 Urine Albumin:Creatinine Ratio 12/14/1971 Annual PCP Team Chronic Disease Visit 12/14/1979 Anxiety Screening 12/14/1979 Depression Screening 12/14/1979 HIV Screening 12/14/1979 Hepatitis C Screening 12/14/1979 DTaP,Tdap,Td Vaccine (1 - Tdap) 1980 Pneumococcal Vaccine: 50+ (1 of 2 - PCV) 1980 CT Colonography 2006 Colonoscopy 2006 Fecal Occult Blood 2006 Prostate Cancer Screening Discussion 2006 Sigmoidoscopy 2006 Shingrix Vaccine (1 of 2) 12/14/2011 Cologuard (FIT-DNA) 07/27/2023 07/26/2020 Colorectal Cancer Screening 07/27/2023 HbA1C 06/15/2024 12/17/2023 Influenza Vaccine (#1) 2024 01/21/2021, 2016 LDL Cholesterol 05/21/2025 05/21/2024, 01/29/2024 RSV Vaccine (1 - 1-dose 75+ series) 2036 Goals Goal Patient Goal Type Associated Problems Recent Progress Patient-Stated? Author Blood Pressure < 130/80 Blood Pressure 146/73( 025 8:12 AM EDT) No Mayte Zhang nd, MD Procedures Procedure Name Priority Date/Time Associated Diagnosis Comments LIPID PANEL, FASTING Routine 05/21/2024 9:37 AM EDT High cholesterol from Last 3 Months or Most Recently Relevant to Health Maintenance Results * (ABNORMAL) LIPID PANEL, FASTING (05/21/2024 9:37 AM EDT) Cholesterol, Total 112 <200 mg/dL 05/21/2024 4:43 PM EDT [facility] Comment: <200 mg/dL, Desirable 200-239 mg/dL, Borderline high >239 mg/dL, High Triglyceride 124 <150 mg/dL 05/21/2024 4:43 PM EDT [facility] Comment: <150 mg/dL, Normal 150-199 mg/dL, Borderline high 200-499 mg/dL, High >499 mg/dL, Very high HDL Cholesterol 33(L) >39 mg/dL 4:43 PM EDT [facility] Comment: 40-59 mg/dL, Acceptable >59 mg/dL, High: Negative risk factor for coronary heart disease <40 mg/dL, Low: Positive risk factor for coronary heart disease Non HDL Cholesterol 79 <130 mg/dL 05/21/2024 4:43 PM EDT [facility] Comment: <130 mg/dL, Optimal 130-159 mg/dL, Near optimal/above optimal 160-189 mg/dL, Borderline high 190-219 mg/dL, High >219 mg/dL, Very high Secondary prevention optimal non HDL Cholesterol levels are recommended to be <100 mg/dL Fasting Time 12 hrs 05/21/2024 4:43 PM T [facility] VLDL Cholesterol 25 <30 mg/dL 05/22/19 25 4:43 PM EDT [facility] TC:HDL Ratio 3.39 <5.10 05/21/2024 4:43 PM EDT [facility] LDL Cholesterol, Calculated 54 <100 mg/dL 05/21/2024 4:43 PM EDT [facility] Comment: <100 mg/dL, Optimal 100-129 mg/dL, Near optimal/above optimal 130-159 mg/dL, Borderline high 160-189 mg/dL, High >189 mg/dL, Very high Secondary prevention optimal LDL Cholesterol levels are recommended to be < 70 mg/dL LDL:HDL Ratio 1.64 <2.54 05/21/2024 4:43 PM EDT [facility] Comment: Reference: 1. National Cholesterol Education Program ATP III Guideline At-A-Glance Quick Desk Reference: National Heart, Lung, and Blood [place]. National Institutes of Health. 2001: NIH Publication No. 01-3305. 2. An International Atherosclerosis Society position paper: global recommendations for the management of dyslipidemia: executive summary, Atherosclerosis. 2014: 232(2):410-413. Blood BLOOD SPECIMEN / Unknown Venipuncture / Unknown 05/21/2024 9:37 AM EDT 05/21/2024 9:37 AM EDT us Mayte Sewell MD LABORATORY Katelyn l Result [facility] [address] [facility] [address] [address], from Last 3 Months or Most Recently Relevant to Health Maintenance Insurance BLUE ACCESS PPO Care Teams Order Control Clerk Blood Bank Relationship Specialty Start Date End Date Vaschak, Edgard Ruben, DO [address] [facility] [address] [place] [address] Internal Medicine 01/25/24 Mayte Sewell MD [address] [place] [address] Primary Staff Physician Cardiology 05/21/24
--- OUTSIDE RECORDS SUMMARY | 2024-10-25 09:17 | XMS_ITS | Encounter Summary ---
Author Organization [facility] Address [address] [place] [address] Care Team Providers Care Assistant Manager Name Role Phone Edgard Wright DO Primary Care Provider Edgard Wright DO Unavailable [phone] Reason for Visit * Reason Comments Med Refill Encounter Details Date Type Department Care Team (Late st Contact Info) Description 02/04/2023 Refill [facility] [address] [place] [phone] Edgard Wright DO [address] [place] [address] Hypertensive heart disease without heart failure Social History Tobacco Use Types Packs/Day Years Used Date Smoking Tobacco: Never Assessed Sex and Gender Information Value Date Recorded Sex Assigned at Not on file Legal Sex Male 6:52 PM EDT Gender Identity Not on file Sexual Orientation Not on file documented as of this encounter Plan of Treatment Upcoming Encounters Date Type Department Care Team (Late st Contact Info) Description 11/19/2024 10:30 AM EDT Office Visit [facility] [address] [place] [address] Edgard Wright DO [address] [place] [address] documented as of this encounter Visit Diagnoses Diagnosis Hypertensive heart disease without heart failure Unspecified hypertensive heart disease without heart failure documented in this encounter Care Teams Assistant Manager Relationship Specialty Start Date End Date Edgard Wright DO [address] [facility] [address] [place] [address] PCP - General Internal Medicine 06/20/22 Edgard Wright DO [address] [facility] [address] [place] [address] PCP - Francisco Aguayo 01/13/24 documented as of this encounter
--- OUTSIDE RECORDS SUMMARY | 2024-10-25 09:17 | XMS_ITS | Encounter Summary ---
Author Organization [facility] Address [address] [facility] [place] [address] Care Team Providers Care Vinyl Dipper Name Role Phone Edgard Wright DO Primary Care Provider Edgard Wright DO Unavailable [phone] Encounter Details Date Type Department Care Team (Late st Contact Info) Description 12/14/2023 External Result Encounter [facility] External Department Unsolicited Edgard Wright DO [address] [place] [address] Social History Tobacco Use Types Packs/Day Years Used Date Smoking Tobacco: Never Assessed Smokeless Tobacco: Current Chew Alcohol Use Standard Drinks/Week Comments Yes 0 (1 standard drink = 0.6 oz pur e alcohol) AUDIT-C Answer Date Recorded Q1: How often do you have a drink containing alc ohol? Never 11/12/2023 Q2: How many drinks containi ng alcohol do you have on a typical day when you are drinking? 1 or 2 11/12/2023 Q3: How often do you have si x or more drinks on one occasion? Less than monthly 11/12/2023 Sex and Gender Information Value Date Recorded Sex Assigned at Not on file Legal Sex Male 6:52 PM EDT Gender Identity Not on file Sexual Orientation Not on file documented as of this encounter Plan of Treatment Upcoming Encounters Date Type Department Care Team (Late st Contact Info) Description 11/19/2024 10:30 AM EDT Office Visit [facility] [place] [facility] [address] [place] [address] Edgard Wright DO [address] [place] [address] documented as of this encounter Procedures Procedure Name Priority Date/Time Associated Diagnosis Comments STRESS TEST WITH MYOCARDIAL PERFUSION 12/14/2023 4:51 PM EDT documented in this encounter Results * Stress test with myocardial perfusion (12/14/2023 4:51 PM EDT) Anatomical Region Laterality Modality Heart Other 12/14/2023 4:51 PM EDT Impressions 12/14/2023 5:02 PM EDT 1. Abnormal SPECT Sestamibi myocardial perfusion study. There is a mild intensity, moderate size, reversible defect in the basal inferoseptal wall. This is suggestive of ischemia. 2. Inferoseptal hypokinesis. 3. Normal left ventricular systolic function. LVEF is 52%. Impression dictated by: Bairon Villarreal M.D.12/14/2023 4:59 PM Dictation Location: [address] [address] Transcribed By: [facility] 12/14/231658 Dictated By: Bairon Villarreal MD 12/14/23 165 Signed By: <Electronically signed by Bairon Villarreal MD in OV> 12/14/23 1659 Narrative 12/14/2023 5:02 PM EDT [facility] Main [address] [address] Nuclear Medicine Report Signed Patient: Roel Todd MR#: [id number] 91 : 1960 Acct:[id number] Age/Sex: 62 / M ADM Date: 12/12/23 Loc: Room: Type: [facility] Attending Dr: Edgard Wright DO Copies to: MD Edgard Carpio DO Ordering Provider: Edgard Wright DO Date of Service: 12/12/23 NM/NM xavier perf SPECT rest str: Left Ventricular Failure NUCLEAR MYOCARDIAL PERFUSION DATE OF PROCEDURE: 12/14/2023 ATTENDING CIVIL ENGINEERING PROFESSIONAL: Dr. Bairon Villarreal REQUESTING PHYSICIAN: Dr. Wright PROCEDURE: The patient achieved a workload of 8.3 METs during the last one minute of exercise. The patient was then injected with 29.7 millicuries of Technetium 99M Sestamibi one minute before the end of the exercise. For rest images the patient was injected with 26.5 millicuries of Technetium 99M Sestamibi. FINDINGS: The raw cine images were reviewed. The post stress and rest perfusion images were reviewed as well as the computer quantification. Extensive gut uptake is noted which may reduce accuracy. There is a mild intensity, moderate size, reversible defect in the basal inferoseptal wall. This is suggestive of ischemia. On the gated portion of the study, the overall ejection fraction calculated at 52%. QGS consistent with inferoseptal hypokinesis. TID score 0.94 is within normal limits. NM/NM xavier perf SPECT rest str Procedure Note Angelita Villarreal MD - 12/14/2023 [facility] [place] [address] Nuclear Medicine Report Signed Patient: Roel Todd EMR#: [id number] 91 : 2Acct:[id number] Age/Sex: 62 / MADM Date: 12/12/23 Loc: Room:Type: [facility] Attending Dr: Edgard Wright DO Copies to: MD Edgard Carpio DO Ordering Provider: Edgard Wright DO Date of Service: 12/12/23 NM/NM xavier perf SPECT rest str: LeftVentricular Failure NUCLEAR MYOCARDIAL PERFUSION DATE OF PROCEDURE: 12/14/2023 ATTENDING CIVIL ENGINEERING PROFESSIONAL: Dr. Bairon Villarreal REQUESTING PHYSICIAN: Dr. Wright PROCEDURE: The patient achieved a workload of 8.3 METs during the last one minute ofexercise. The patient was then injected with 29.7 millicuries of Technetium 99MSestamibi one minute before the end of the exercise. For rest images the patient was injected with 26.5 millicuries ofTechnetium 99M Sestamibi. FINDINGS: The raw cine images were reviewed. The post stress and rest perfusionimages were reviewed as well as the computer quantification. Extensive gut uptake is noted which may reduce accuracy. There is a mild intensity, moderate size, reversible defect in the basalinferoseptal wall. This is suggestive of ischemia. On the gated portion of the study, the overall ejection fractioncalculated at 52%. QGS consistent with inferoseptal hypokinesis. TID score 0.94 is within normal limits. NM/NM xavier perf SPECT rest str IMPRESSION: 1. Abnormal SPECT Sestamibi myocardial perfusion study. There is a mildintensity, moderate size, reversible defect in the basal inferoseptal wall. This is suggestive ofischemia. 2. Inferoseptal hypokinesis. 3. Normal left ventricular systolic function. LVEF is 52%. Impression dictated by: Bairon Villarreal M.D.12/14/2023 4:59 PM Dictation Location: [place] [address] Transcribed By: [facility] 12/14/23 165 Dictated By: Bairon Villarreal MD 12/14/231650 Signed By: <Electronically signed by Bairon Villarreal MDin OV> 12/14/23 165 Edgard Wright DO CV STRESS PROCEDURES Final R esult documented in this encounter Visit Diagnoses Not on filedocumented in this encounter Care Teams Vinyl Dipper Relationship Specialty Start Date End Date Edgard Wright DO [address] [place] [address] PCP - General Internal Medicine 06/20/22 Edgard Wright DO [address] [place] [address] PCP - [employer] 01/13/24 documented as of this encounter
--- OUTSIDE RECORDS SUMMARY | 2024-10-25 09:17 | XMS_ITS | Encounter Summary ---
Author Organization [facility] Address [address] [facility] [place] [address] Care Team Providers Care Lobster Fisherman Name Role Phone Edgard Wright DO Primary Care Provider Edgard Wright DO Unavailable [phone] Reason for Visit * Reason Comments Med Refill Encounter Details Date Type Department Care Team (Late st Contact Info) Description 09/17/2022 Refill [facility] [address] [place] [phone] Edgard Wright DO [address] [facility] [address] [place] [address] Primary hypertension Social History Tobacco Use Types Packs/Day Years Used Date Smoking Tobacco: Never Assessed Sex and Gender Information Value Date Recorded Sex Assigned at Not on file Legal Sex Male 6:52 PM EDT Gender Identity Not on file Sexual Orientation Not on file documented as of this encounter Miscellaneous Notes * Telephone Encounter - Randee Lewis LPN - 09/18/2022 8:05 AM EDT Approving, but needs appt for additional refills. documented in this encounter Plan of Treatment Upcoming Encounters Date Type Department Care Team (Late st Contact Info) Description 11/19/2024 10:30 AM EDT Office Visit [facility] [place] [facility] [address] [place] [address] Edgard Wright DO [address] [place] [address] documented as of this encounter Visit Diagnoses Diagnosis Primary hypertension Unspecified essential hypertension documented in this encounter Care Teams Lobster Fisherman Relationship Specialty Start Date End Date Edgadr Wright DO [address] [place] [address] PCP - General Internal Medicine 06/20/22 Edgard Wright DO [address] [place] [address] PCP - Francisco Commercial 01/13/24 documented as of this encounter
--- OUTSIDE RECORDS SUMMARY | 2024-10-25 09:17 | XMS_ITS | Encounter Summary ---
Author Organization [facility] Address [address] [place] [address] Care Team Providers Care Hawk Missile System Crewmember Name Role Phone Edgard Wright DO Unavailable Mayte Sewell MD Unavailable [phone] Source Comments In the event this information is protected by the Federal Confidentiality of Alcohol and Drug AbusePatient Records regulations: The Federal rules restrict any use of the information to criminally investigate or prosecute any alcohol or drug abuse patient.[facility] Encounter Details Date Type Department Care Team (Late st Contact Info) Description 03/17/2024 Get Medical Advice Cardiology [address] [place] [address] Mayte Sewell MD [address] [place] [address] Regarding appointment 03/31/2024 Social History Tobacco Use Types Packs/Day Years Used Date Smoking Tobacco: Never Smokeless Tobacco: Current Snuff Alcohol Use Standard Drinks/Week Comments Yes 0 (1 standard drink = 0.6 oz pur e alcohol) rare Area Deprivation Index Answer Date Rahul rded National Score (1-100), lower number is lower ri sk 64 01/29/2024 State Score (1-10), lower number is lower risk 4 01/29/2024 Data from: https://www.jeffrey whelan.medicine.[facility]/. Last address used for calculation [address] 01/29/2024 Sex and Gender Information Value Date Recorded Sex Assigned at Male 03/31/2024 6:54 PM EST Legal Sex Male 9:18 AM EST Gender Identity Not on file Sexual Orientation Not on file documented as of this encounter Miscellaneous Notes * Telephone Encounter - Celeste Mack - 03/18/2024 11:31 AM EST message 1 of 2 documented in this encounter Plan of Treatment Upcoming Encounters Date Type Department Care Team (Late st Contact Info) Description 12/29/2024 10:00 AM EST Results Only [address] [place] [address] [address] [place] [address] LAB WORK 12/29/2024 10:30 AM EST Office Visit Cardiology [address] [place] [address] Mayte Sewell MD [address] [place] [address] DX: Cath follow up Established intervention patient documented as of this encounter Goals Goal Patient Goal Type Associated Problems Recent Progress Patient-Stated? Author Blood Pressure < 130/80 Blood Pressure 146/73( 025 8:12 AM EDT) No Mayte Zhang nd, MD documented as of this encounter Visit Diagnoses Not on filedocumented in this encounter Care Teams Hawk Missile System Crewmember Relationship Specialty Start Date End Date Edgard Wright DO [address] [place] [address] Internal Medicine 01/25/24 Mayte Sewell MD [address] [place] [address] Primary Staff Physician Cardiology 05/21/24 documented as of this encounter
--- OUTSIDE RECORDS SUMMARY | 2024-10-25 09:17 | XMS_ITS | Clinical Summary ---
Author Organization [facility] Address [address] [place] [address] Care Team Providers Care Research Mechanic Name Role Phone Edgard Wright DO Primary Care Provider [phone] Allergies Active Allergy Reactions Criticality Noted Date Comments Semaglutide(0.25 Or 0.5mg-Dos) Dizziness Medium 11/11 Spironolactone Other Low 11/12/2023 Breast tenderness Medications OneTouch Ultra test stripIndications :Impaired fasting glucose USE TO TEST DAILY 100 strip 3 3 Active aspirin 81 MG EC tablet Take 81 mg by mouth Daily Active atorvastatin (Lipitor) 40 MG tablet Take 40 mg by mouth Daily 5 Active sildenafil (Viagra) 100 MG tabletIndication s:Erectile dysfunction, unspecified erectile dysfunction type Take 1 tablet (100 mg) by mouth Daily as needed for erectile dysfunction USE GOOD RX 30 tablet 5 08/19/19 26 Active Tirzepatide (Mounjaro) 7.5 MG/0.5ML solution auto-injectorInd ications:Type 2 diabetes mellitus with other circulatory complication, without long-term current use of insulin (HCC) Inject 7.5 mg under the skin 1 (one) time per week 2 mL 3 5 Active amLODIPine (Norvasc) 5 MG tabletIndication s:Hypertensive heart disease without heart failure Take 1 tablet (5 mg) by mouth Daily 90 tablet 1 5 Active carvedilol (Coreg) 25 MG tabletIndication s:Primary hypertension Take 1 tablet (25 mg) by mouth in the morning and 1 tablet (25 mg) in the evening. Take with meals. Take with food. 180 tablet 1 5 Active eplerenone (Inspra) 50 MG tabletIndication s:Hypertensive heart disease without heart failure Take 1 tablet (50 mg) by mouth in the morning and 1 tablet (50 mg) before bedtime. 180 tablet 1 5 Active isosorbide mononitrate ER (Imdur) 60 MG 24 hr tabletIndication s:Abnormal stress test,High coronary artery calcium score,Atheroscle rosis of both carotid arteries Take 1 tablet (60 mg) by mouth Daily Do not crush or chew. 90 tablet 1 5 09/07/19 28 Active losartan (Cozaar) 100 MG tabletIndication s:Hypertensive heart disease without heart failure Take 1 tablet (100 mg) by mouth at bedtime 90 tablet 1 5 Active nitroglycerin (Nitrostat) 0.4 MG SL tabletIndication s:Abnormal stress test,High coronary artery calcium score,Atheroscle rosis of both carotid arteries Place 1 tablet (0.4 mg) under the tongue every 5 (five) minutes if needed for chest pain 90 tablet 12 5 09/23/19 26 Active Active Problems Problem Noted Date Diagnosed Date Class 2 severe obesity due t o excess calories with serious comorbidity and body mass index (BMI) of 35.0 to 35.9 in adult 12/17/2023 Hypertensive heart disease with heart failure Type 2 diabetes mellitus wit h circulatory disorder, without long-term current use of insulin 11/23/2023 Atherosclerosis of both carotid arteries 024 Overview (11/12/2023): 2016 lost to follow up asymptomatic High coronary artery calcium score 11/12/2023 Overview (11/12/2023): CAC = 532 -- mainly LAD with all arteries involved GXT ( 02/2017) nml Mixed hyperlipidemia 11/12/2023 Resolved Problems Problem Noted Date Diagnosed Date Resolved Date Abnormal stress test 12/17/2023 03/17/2 025 Prediabetes 11/12/2023 12/17/2023 Overview (11/12/2023): A1c 6.2% sugars 130 range hospital Hypertensive heart disease w ithout heart failure 11/12/2023 11/23/2023 Overview (11/12/2023): increase neurohormonal modulater Encounters Date Type Department Care Team Description 09/22/2024 Refill [facility] [address] [place] [address] Jag Holloway MA Hypertensive heart disease without heart failure ; Primary hypertension ; Hypertensive heart disease without heart failure ; Abnormal stress test; High coronary artery calcium score; Atherosclerosis of both carotid arteries 08/17/2024 Refill [facility] [place] [facility] [address] [place] [address] Edgard Wright DO Erectile dysfunction, unspecified erectile dysfunction type 08/12/2024 10:00 AM EDT Office Visit [facility] [address] [place] [address] Edgard Wright, Type 2 diabetes mellitus with other circulatory complication, without long-term current use of insulin (HCC); Erectile dysfunction, unspecified erectile dysfunction type 08/12/2024 Travel 08/06/2024 Travel from Last 3 Months Immunizations Immunization Administration Dates Next Due Influenza, injectable, MDCK, preservative free, quadrivalent 01/21/2021 Influenza, injectable, quadrivalent, preservativ e free 01/30/2017 Family History Medical History Relation Name Comments Heart disease Maternal Grandfather Mom Diabetes Mother Mom Heart disease Mother Mom Hypertension Mother Mom Relation Name Status Comments Father Maternal Grandfather Mom Mother Mom Social History Tobacco Use Types Packs/Day Years Used Date Smoking Tobacco: Some Days Smokeless Tobacco: Current Chew Alcohol Use Standard Drinks/Week Comments Not Currently 0 (1 standard drink = 0.6 oz pur e alcohol) AUDIT-C Answer Date Recorded Q1: How often do you have a drink containing alcohol? Never 08/12/2024 Q2: How many drinks containi ng alcohol do you have on a typical day when you are drinking? Patient does not drink Q3: How often do you have si x or more drinks on one occasion? Never 08/12/2024 PHQ-2 Answer Date Recorded Patient Health Questionnaire-2 Score 0 08/12/2024 Sex and Gender Information Value Date Recorded Sex Assigned at Not on file Legal Sex Male 6:52 PM EDT Gender Identity Not on file Sexual Orientation Not on file Last Filed Vital Signs Vital Sign Reading Time Taken Comments Blood Pressure 116/64 08/12/2024 9:58 AM EDT Pulse 76 08/12/2024 9:58 AM EDT Temperature - - Respiratory Rate - - Oxygen Saturation 98% 08/12/2024 9:58 AM EDT Inhaled Oxygen Concentration - - Weight 90.7 kg (200 lb) 08/12/2024 9:58 AM EDT Height 165.1 cm (5' 5 ) 08/12/2024 9:58 AM EDT Body Mass Index 33.28 08/12/2024 9:58 AM EDT Plan of Treatment Upcoming Encounters Date Type Department Care Team (Late st Contact Info) Description 11/19/2024 10:30 AM EDT Office Visit [facility] [address] [facility] [address] [address] [place] [address] Edgard Wright DO [address] [facility] [address] [place] [address] Health Maintenance Due Date Last Done Comments CT Colonography 1961 Colonoscopy 1961 FIT 1961 FOBT 1961 Sigmoidoscopy 1961 Diabetes: Retinopathy Screening 08/13/2022 Colorectal Cancer Screening 07/27/2023 FIT-DNA 07/27/2023 07/26/2020, 07/26/2020 Influenza Vaccine (#1) 2024 01/21/2021, 2016 Diabetes: Hemoglobin A1C 11/12/2024 025, 12/17/2023, 07/15/2021, Additional history exists Diabetes: Urine Protein Screening 11/23/2024 11/24/2023, 09/23/2020, 11/27/2019, Additional history exists Procedures Procedure Name Priority Date/Time Associated Diagnosis Comments POCT GLYCOSYLATED HEMOGLOBIN (HGB A1C) Routine 08/12/2024 10:04 AM EDT Type 2 diabetes mellitus with other circulatory complication, without long-term current use of insulin (HCC) MICROALBUMIN / CREATININE URINE RATIO Routine 09/23/2020 COLOR FUNDUS PHOTOGRAPHY - OU - BOTH EYES Routine 08/13/2020 12:00 PM EDT LAB COLOGUARD COLON CANCER SCREEN Routine 07/26/2020 from Last 3 Months or Most Recently Relevant to Health Maintenance Results * POCT glycosylated hemoglobin (Hb A1C) docked device (08/12/2024 10:04 AM EDT) Hemoglobin A1C 5.6 Blood Venous blood specimen / Unknown 08/12/2024 10:04 AM EDT Edgard Wright DO POINT OF CARE TEST ENTER/MILLER T ORDERABLES Final Result * (ABNORMAL) Microalbumin / creatinine urine ratio (09/23/2020) UCREA 145 39 - 259 [facility] MALB <1.2(L) [facility] Comment: Unable to calculate mALB/Crea ratio, mALB is <1.2 mg/dL mALB reference range not established. 09/23/2020 Edgard Wright DO LAB URINE ORDERABLES Final R esult [facility] * Color Fundus Photography - OU - Both Eyes (08/13/2020 12:00 PM EDT) Anatomical Region Laterality Modality Head Fundus Photograp hy 08/13/2020 12:0 0 PM EDT Narrative 08/13/2020 12:00 PM EDT PERFORMED AT [facility] LOCATION:[id number] no retinopathy Procedure Note CONVERSION, GENERIC - 06/28/2022 PERFORMED AT [facility] LOCATION:[id number] no retinopathy us Edgard Wright DO OPHTH PHOTOGRAPHY Final Resu lt * Cologuard?? colon cancer screening (07/26/2020) COLOGUARD RESULT REPORTABLE Negative Negative [facility] Comment: NEGATIVE TEST RESULT. A negative Cologuard result indicates a low likelihood that a colorectal cancer (CRC) or advanced adenoma (adenomatous polyps with more advanced pre-malignant features) is present. The chance that a person with a negative Cologuard test has a colorectal cancer is less than 1 in 1500 (negative predictive value >99.9%) or has an advanced adenoma is less than 5.3% (negative predictive value 94.7%). These data are based on a prospective cross-sectional study of 10,000 individuals at average risk for colorectal cancer who were screened with both Cologuard and colonoscopy. (Daniel Yates et al, N Engl J Med 2014;370(14):4349-8027) The normal value (reference range) for this assay is negative. COLOGUARD RE-SCREENING RECOMMENDATION: Periodic colorectal cancer screening is an important part of preventive healthcare for asymptomatic individuals at average risk for colorectal cancer. Following a negative Cologuard result, the [place] [employer] Society and U.S. Multi-Society Task Force screening guidelines recommend a Cologuard re-screening interval of 3 years. References: [place] [employer] Guideline for Colorectal Cancer Screening: https://www.cancer.org/cancer/pfwhm-klmoes-pvvgll/tvfaehpcl-pylzmtnwl-icienip/ac s-rec ommendations.html.; Lamont GANNON, Linda GOMEZ, Dorian ROMERO, Colorectal Cancer Screening: Recommendations for Physicians and Patients from the U.S. Multi-Society Task Force on Colorectal Cancer Screening , Am J Gastroenterology 2017; 112:4957-1968. TEST DESCRIPTION: Composite algorithmic analysis of stool DNA-biomarkers with hemoglobin immunoassay. Quantitative values of individual biomarkers are not reportable and are not associated with individual biomarker result reference ranges. Cologuard is intended for colorectal cancer screening of adults of either sex, 45 years or older, who are at average-risk for colorectal cancer (CRC). Cologuard has been approved for use by the U.S. FDA. The performance of Cologuard was established in a cross sectional study of average-risk adults aged 50-84. Cologuard performance in patients ages 45 to 49 years was estimated by sub-group analysis of near-age groups. Colonoscopies performed for a positive result may find as the most clinically significant lesion: colorectal cancer [4.0%], advanced adenoma (including sessile serrated polyps greater than or equal to 1cm diameter) [20%] or non- advanced adenoma [31%]; or no colorectal neoplasia [45%]. These estimates are derived from a prospective cross-sectional screening study of 10,000 individuals at average risk for colorectal cancer who were screened with both Cologuard and colonoscopy. (Daniel Barrios al, N Engl J Med 2014;370(14):4285-9495.) Cologuard may produce a false negative or false positive result (no colorectal cancer or precancerous polyp present at colonoscopy follow up). A negative Cologuard test result does not guarantee the absence of CRC or advanced adenoma (pre-cancer). The current Cologuard screening interval is every 3 years. ([place] [employer] and U.S. Multi-Society Task Force). Cologuard performance data in a 10,000 patient pivotal study using colonoscopy as the reference method can be accessed at the following location: www.SpareTime.Delivered/results. Additional description of the Cologuard test process, warnings and precautions can be found at www.cologuard.com. 07/26/2020 Edgard Wright DO LAB MOLECULAR DIAGNOSTICS OR DERABLES Final Result [facility] from Last 3 Months or Most Recently Relevant to Health Maintenance Insurance BCBS Care Teams Research Mechanic Relationship Specialty Start Date End Date Edgard Wright DO [address] [facility] [address] [place] [address] PCP - General Internal Medicine 06/20/22
--- OUTSIDE RECORDS SUMMARY | 2024-10-25 09:17 | XMS_ITS | Encounter Summary ---
Author Organization [facility] Address [address] [place] [address] Care Team Providers Care Molecular Biologist Name Role Phone Edgard Wright DO Primary Care Provider Edgard Wright DO Unavailable [phone] Encounter Details Date Type Department Care Team (Late st Contact Info) Description 11/05/2023 Orders Only [facility] [address] [facility] [address] [place] [address] A, Unknown Practice [address] [place], [place] [address] Social History Tobacco Use Types Packs/Day Years [...] Visit [facility] [address] [place] [phone] Edgard Wright DO [address] [place] [address] documented as of this encounter Procedures Procedure Name Priority Date/Time Associated Diagnosis Comments XR CHEST 1 VIEW Routine 11/04/2023 2:45 PM EDT documented in this encounter Results * XR chest 1 view (11/04/2023 2:45 PM EDT) Anatomical Region Laterality Modality Chest Radiographic Eliane ging us Unknown Practice A IMG XR PROCEDURES Final Resul t documented in this encounter Visit Diagnoses Not on filedocumented in this encounter Care Teams Molecular Biologist Relationship Specialty Start Date End Date Edgard Wright DO [address] [place] [address] PCP - General Internal Medicine 06/20/22 Edgard Wright DO [address] [place] [address] PCP - Francisco Aguayo 01/13/24 documented as of this encounter
--- OUTSIDE RECORDS SUMMARY | 2024-10-25 09:17 | XMS_ITS | Encounter Summary ---
Author Organization [facility] Address [address] [place] [address] Care Team Providers Care Pulp House Supervisor Name Role Phone Edgard Wright DO Unavailable [phone] Mayte Sewell MD Unavailable [phone] Source Comments In the event this information is protected by the Federal Confidentiality of Alcohol and Drug AbusePatient Records regulations: The Federal rules restrict any use of the information to criminally investigate or prosecute any alcohol or drug abuse patient.[facility] Encounter Details Date Type Department Care Team (Late st Contact Info) Description 04/01/2024 Patient Msg Cardiology [address] [place] [address] Provider, Ccf procedure scheduled Social History Tobacco Use Types Packs/Day Years Used Date Smoking Tobacco: Never Smokeless Tobacco: Current Snuff Alcohol Use Standard Drinks/Week Comments Yes 0 (1 standard drink = 0.6 oz pur e alcohol) rare Area Deprivation Index Answer Date Rahul rded National Score (1-100), lower number is lower ri 64 01/29/2024 State Score (1-10), lower number is lower risk 4 01/29/2024 Data from: https://www.jeffrey whelan.medicine.[facility].edu/. Last address used for calculation [address] [...] 12/29/2024 10:00 AM EST Results Only Main [place] [address] [address] [place], [place] [id number] LAB WORK 12/29/2024 10:30 AM EST Office Visit Cardiology [address] [place], [place] [phone] Mayte Sewell MD [address] [place] [address] DX: Cath follow up Established intervention patient documented as of this encounter Goals Goal Patient Goal Type Associated Problems Recent Progress Patient-Stated? Author Blood Pressure < 130/80 Blood Pressure 146/73( 025 8:12 AM EDT) No Mayte Zhang nd, MD documented as of this encounter Visit Diagnoses Not on filedocumented in this encounter Care Teams Pulp House Supervisor Relationship Specialty Start Date End Date Edgard Wright DO [address] [place] [address] Internal Medicine 01/25/24 Mayte Sewell MD [address] [place] [address] Primary Staff Physician Cardiology 05/21/24 documented as of this encounter
--- OUTSIDE RECORDS SUMMARY | 2024-10-25 09:17 | XMS_ITS | Encounter Summary ---
Author Organization [facility] Address [facility] [place] [address] Care Team Providers Care Flower Maker Name Role Phone Edgard Wright DO Unavailable [phone] Mayte Sewell MD Unavailable [phone] Source Comments In the event this information is protected by the Federal Confidentiality of Alcohol and Drug AbusePatient Records regulations: The Federal rules restrict any use of the information to criminally investigate or prosecute any alcohol or drug abuse patient.[facility] Encounter Details Date Type Department Care Team (Late st Contact Info) Description 09/24/2024 Patient [facility] [address] [place] [address] Tiffany Sanchez RPh At your next appointment, choose [facility]. Social History Tobacco Use Types Packs/Day Years [...] lower risk 4 01/29/2024 Data from: https://www.jeffrey patinohoodshanel.[facility]/. Last address used for calculation [address] 01/29/2024 Sex and Gender Information Value Date Recorded Sex Assigned at Male 03/31/2024 6:54 PM EST Legal Sex Male 9:18 AM EST Gender Identity Not on file Sexual Orientation Not on file documented as of this encounter Functional Status * Are you deaf or do you have serious difficulty hearing? Answer Date of Assessment Author No 04/08/2024 12:17 PM EST Lurdes Pascual RN * Are you blind or do you have serious difficulty seeing, even when wearing glasses? Answer Date of Assessment Author No 04/08/2024 12:17 PM EST Lurdes Pascual RN * Do you have serious difficulty walking or climbing stairs? Answer Date of Assessment Author No 04/08/2024 12:17 PM Lurdes Landis RN * Do you have difficulty dressing or bathing? Answer Date of Assessment Author No 04/08/2024 12:17 PM EST Lurdes Pascual RN * Because of a physical, mental, or emotional condition, do you have difficulty doing errands alone such as visiting a doctor's office or shopping? Answer Date of Assessment Author No 04/08/2024 12:17 PM Lurdes Landis RN documented as of this encounter Mental Status * Because of a physical, mental, or emotional condition, do you have serious difficulty concentrating, remembering, or making decisions? Answer Entry Date Author No 04/08/2024 12:17 PM Lurdes Landis RN documented in this encounter Plan of Treatment Upcoming Encounters Date Type Department Care Team (Late st Contact Info) Description 12/29/2024 10:00 AM EST Results Only Main [place] [address] [place] [address] LAB WORK 12/29/2024 10:30 AM EST Office Visit Cardiology [address] [place] [id number] Mayte Sewell MD [address] [place] [address] DX: Cath follow up Established intervention patient documented as of this encounter Goals Goal Patient Goal Type Associated Problems Recent Progress Patient-Stated? Author Blood Pressure < 130/80 Blood Pressure 146/73( 025 8:12 AM EDT) No Mayte Zhang nd, MD documented as of this encounter Visit Diagnoses Not on filedocumented in this encounter Care Teams Flower Maker Relationship Specialty Start Date End Date Edgard Wright DO [address] [place] [address] Internal Medicine 01/25/24 Mayte Sewell MD [address] [place] [address] Primary Staff Physician Cardiology 05/21/24 documented as of this encounter
--- OUTSIDE RECORDS SUMMARY | 2024-10-25 09:17 | XMS_ITS | Encounter Summary ---
Author Organization [facility] Address [address] [place] [address] Care Team Providers Care Boat Canvas Maker And Installer Name Role Phone Edgard Wright DO Unavailable [phone] Mayte Sewell MD Unavailable [phone] Source Comments In the event this information is protected by the Federal Confidentiality of Alcohol and Drug AbusePatient Records regulations: The Federal rules restrict any use of the information to criminally investigate or prosecute any alcohol or drug abuse patient.[facility] Encounter Details Date Type Department Care Team (Late st Contact Info) Description 03/17/2024 Get Medical Advice Cardiology [address] [place] [address] Mayte Sewell MD [address] [place] [address] Regarding 03/31/2024 procedure Social History Tobacco Use Types Packs/Day Years [...] lower risk 4 01/29/2024 Data from: https://www.jeffrey whelan.medicine.[facility]/. Last address used for calculation [address] 01/29/2024 Sex and Gender Information Value Date Recorded Sex Assigned at Male 03/31/2024 6:54 PM EST Legal Sex Male 9:18 AM EST Gender Identity Not on file Sexual Orientation Not on file documented as of this encounter Miscellaneous Notes * Telephone Encounter - Celeste Mack - 03/18/2024 11:32 AM EST Message 2 of 2 documented in this encounter Plan of Treatment Upcoming Encounters Date Type Department Care Team (Late st Contact Info) Description 12/29/2024 10:00 AM EST Results Only Main [place] [address] [address] [place] [address] LAB WORK 12/29/2024 10:30 AM EST Office Visit Cardiology [address] [place] [address] Mayte Sewell MD [address] [place] [address] DX: Cath follow up Established intervention patient documented as of this encounter Goals Goal Patient Goal Type Associated Problems Recent Progress Patient-Stated? Author Blood Pressure < 130/80 Blood Pressure 146/73( 025 8:12 AM EDT) No Mayte Zhang nd, MD documented as of this encounter Visit Diagnoses Not on filedocumented in this encounter Care Teams Boat Canvas Maker And Installer Relationship Specialty Start Date End Date Edgard Wright DO [address] [place] [address] Internal Medicine 01/25/24 Mayte Sewell MD [address] [place] [address] Primary Staff Physician Cardiology 05/21/24 documented as of this encounter
--- OUTSIDE RECORDS SUMMARY | 2024-10-25 09:17 | XMS_ITS | Encounter Summary ---
Author Organization [facility] Address [address] [place] [address] Care Team Providers Care Handle Finisher Name Role Phone Edgard Wright DO Primary Care Provider Edgard Wright DO Unavailable [phone] Reason for Visit * Reason Comments Med Refill Encounter Details Date Type Department Care Team (Late st Contact Info) Description 07/04/2022 Refill [facility] [address] [place] [phone] Edgard Wright DO [address] [place] [address] Impaired fasting glucose Social History Tobacco Use Types Packs/Day Years [...] [address] [place] [phone] Edgard Wright DO [address] [place] [address] documented as of this encounter Visit Diagnoses Diagnosis Impaired fasting glucose documented in this encounter Care Teams Handle Finisher Relationship Specialty Start Date End Date Edgard Wright DO [address] [facility] [place] [address] PCP - General Internal Medicine 06/20/22 Edgard Wright DO [address] [facility] [place] [address] PCP - Francisco Aguayo 01/13/24 documented as of this encounter
--- OUTSIDE RECORDS SUMMARY | 2024-10-25 09:17 | XMS_ITS | Encounter Summary ---
Author Organization [facility] Address [address] [place] [address] Care Team Providers Care Firer Electric Locomotive Name Role Phone Edgard Wright DO Unavailable [phone] Mayte Sewell MD Unavailable [phone] Source Comments In the event this information is protected by the Federal Confidentiality of Alcohol and Drug AbusePatient Records regulations: The Federal rules restrict any use of the information to criminally investigate or prosecute any alcohol or drug abuse patient.[facility] Encounter Details Date Type Department Care Team (Late st Contact Info) Description 01/25/2024 Patient Msg Cardiology [address] [place] [address] Provider, Mayte Valentin M.D. on January 29, 2024 at 9:30 AM Social History Tobacco Use Types Packs/Day Years Used Date Smoking Tobacco: Never Assessed Area Deprivation Index Answer Date Rahul rded National Score (1-100), lower number is lower [facility] 64 01/29/2024 State Score (1-10), lower number is lower risk 4 01/29/2024 Data from: https://www.jeffrey whlean.medicine.[facility].edu/. Last address used for calculation [address] [...] 12/29/2024 10:00 AM EST Results Only [address] [place] [address] [address] [id number] LAB WORK 12/29/2024 10:30 AM EST Office Visit Cardiology [address] [phone] Mayte Sewell MD [address] [place] [address] DX: Cath follow up Established intervention patient documented as of this encounter Visit Diagnoses Not on filedocumented in this encounter Care Teams Fire[employer] Electric Locomotive Relationship Specialty Start Date End Date Edgard Wright DO [address] [address] Internal Medicine 01/25/24 Mayte Sewell MD [address] [place] [address] Primary Staff Physician Cardiology 05/21/24 documented as of this encounter
--- OUTSIDE RECORDS SUMMARY | 2024-10-25 09:17 | XMS_ITS | Encounter Summary ---
Author Organization [facility] Address [address] [place] [address] Care Team Providers Care Wood Panel Inspector Name Role Phone Edgard Wright DO Unavailable [phone] Mayte Sewell MD Unavailable [phone] Source Comments In the event this information is protected by the Federal Confidentiality of Alcohol and Drug AbusePatient Records regulations: The Federal rules restrict any use of the information to criminally investigate or prosecute any alcohol or drug abuse patient.[facility] Reason for Visit * Reason Comments Appointment Dr. Sewell wi ll be out of the office on November 24, so the appointment has been canceled and rescheduled for December 29. I spoke with the patient this morning, and he said the new day and time were okay. Encounter Details Date Type Department Care Team (Late st Contact Info) Description 08/30/2024 Telephone Cardiology [address] [place] [address] Mayte Sewell MD [address] [place] [address] Appointment (Dr. Sewell will be out of the office on November 24, so the appointment has been canceled and rescheduled for December 29. I spoke with the patient this morning, and he said the new day and time were okay.) Social History Tobacco Use Types Packs/Day Years Used Date Smoking Tobacco: Never Smokeless Tobacco: Current Snuff Alcohol Use Standard Drinks/Week Comments Yes 0 (1 standard drink = 0.6 oz pur e alcohol) [facility] Area Deprivation Index Answer Date Rahul rded National Score (1-100), lower number is lower [facility] 64 01/29/2024 State Score (1-10), lower number is lower risk 4 01/29/2024 Data from: https://www.neigh sukumarhoodatjennifer.[facility]/. Last address used for calculation [address] 01/29/2024 Sex and Gender Information Value [...] 04/08/2024 12:17 PM Lurdes Landis RN * Are you blind or do you have serious difficulty seeing, even when wearing glasses? Answer Date of Assessment Author No 04/08/2024 12:17 PM Lurdes Landis RN * Do you have serious difficulty walking or climbing stairs? Answer Date of Assessment Author No 04/08/2024 12:17 PM Lurdes Landis RN * Do you have difficulty dressing or bathing? Answer Date of Assessment Author No 04/08/2024 12:17 PM Lurdes Landis RN * Because of a physical, mental, [...] Entry Date Author No 04/08/2024 12:17 PM EST Lurdes Pascual RN documented in this encounter Plan of Treatment Upcoming Encounters Date Type Department Care Team (Late st Contact Info) Description 12/29/2024 10:00 AM EST Results Only [address] [place] [address] [address] [id number] LAB WORK 12/29/2024 10:30 AM EST Office Visit Cardiology [address] [phone] Mayte Sewell MD [address] [place] [address] DX: Cath follow up Established intervention patient documented as of this encounter Goals Goal Patient Goal Type Associated Problems Recent Progress Patient-Stated? Author Blood Pressure < 130/80 Blood Pressure 146/73( 025 8:12 AM EDT) No Mayte Zhang nd, MD documented as of this encounter Visit Diagnoses Not on filedocumented in this encounter Care Teams Wood Panel Inspector Relationship Specialty Start Date End Date Edgard Wright DO [address] [place] [address] Internal Medicine 01/25/24 Mayte Sewell MD [address] [place] [address] Primary Staff Physician Cardiology 05/21/24 documented as of this encounter
--- OUTSIDE RECORDS SUMMARY | 2024-10-25 09:18 | XMS_ITS | CCD ---
Author Organization [facility] Care Team Providers Care Compatibility Test Engineer Name Role Phone TIFFANIE WRIGHT Unavailable TIFFANIE WRIGHT Unavailable Unavailable TIFFANIE WRIGHT Unavailable Unavailable MISC, DR HUERTA Primary Care Unavailable LISSETH, DR MORENO Attending Unavailable LISSETH, DR MORENO Consulting Unavailable LISSETH, DR MORENO Admitting Unavailable Tiffanie Wright DO Primary Care Provider DO Tiffanie Wright Primary Care Provider DO Tiffanie Wright Attending Provider Tiffanie Wright Attending Unavailable Tiffanie Wright Primary Care Unavailable Tiffanie Wright Admitting Unavailable Tejal DOPSTER, Yueroana Primary Care Provider [phone] Tiffanie Wright DO Unavailable Melodie BACK, Mayte Unavailable TIFFANIE WRIGHT Attending Unavailable TIFFANIE WRIGHT Attending Unavailable TIFFANIE WRIGHT Referring Unavailable TEJAL, YUERONG Attending Unavailable TIFFANIE WRIGHT Referring Unavailable TIFFANIE WRIGHT Attending Unavailable TIFFANIE WRIGHT Referring Unavailable MAYTE AHN Admitting Bethvai labruiz AHN, MAYTE Attending Bethvamarita AHN, MAYTE Referring Unavai labruiz AHN, MAYTE Attending Bethvamarita labruiz AHN, MAYTE Referring Unavai labruiz AHN, MAYTE Attending Bethvamarita AHN, MAYTE Attending Bethvamarita AHN, MAYTE Referring Unavai labruiz AHN, MAYTE Referring MAYTE Castellon Referring MAYTE Castellon Attending MAYTE Castellon Referring Nadege parikh Allergies Allergy Classification Reported Allergen(s) Allergy Type Date of Onset Reaction(s) Facility (10 sources) Spironolactone; Translations: [SPIRONOLACTONE] Drug Allergy 11-12-19 Other [facility] (9 sources) Semaglutide(0.25 Or 0.5mg-Dos) Drug Intolerance 11-12-19 Dizziness [facility] Work Phone: (10 sources) semaglutide; Translations: [SEMAGLUTIDE] Drug Allergy 01-29-20 Other: See Comments [facility] (9 sources) Spironolactone Drug Allergy 01-29-20 Other: See Comments [facility] Medications Current Medications Medication Drug Class(es) Dates Sig (Normalized) Sig (Original) amLODIPine 5 mg oral tablet (20 sources) Dihydropyridine Calcium Channel Wilder Start: 11-30-2023 End: 12-17-2023 take 1 tablet by mouth once daily amLODIPine (Norvasc) 10 MG tablet Indications: Hypertensive heart disease without heart failure (CMS/HCC) Take 1 tablet (10 mg) by mouth Daily 90 tablet 3 11/30/2023 12/17/2023 Discontinued Start: 11-22-2023 End: 05-20-2024 take 1 tablet by mouth once daily amLODIPine (Norvasc) 5 MG tablet Indications: Hypertensive heart disease without heart failure Take 1 tablet (5 mg) by mouth Daily 90 tablet 1 04/09/2024 Active take 1 tablet by ramírez th in the morning amLODIPine (Norvasc) 10 MG tablet Take 10 mg by mouth in the morning. Active aspirin 81 mg delayed release oral tablet (18 sources) Platelet Aggregation Inhibitor, Nonsteroidal Anti-inflammatory Drug take 1 tablet by mouth once daily aspirin 81 MG EC tablet Take 81 mg by mouth Daily Active atorvastatin 40 mg oral tablet (20 sources) HMG-CoA Reductase Inhibitor Start: 03-31-19 take 1 tablet by mouth once daily atorvastatin (Lipitor) 40 MG tablet Take 40 mg by mouth Daily 06/19/2024 Active Start: 11-05-2023 End: 07-01-2025 take 1 tablet by mouth at bedtime atorvastatin (Lipitor) 20 MG tablet Indications: Mixed hyperlipidemia Take 1 tablet (20 mg) by mouth at bedtime 90 tablet 3 11/30/2023 08/12/2024 Discontinued (Med list cleanup) carvedilol 25 mg oral tablet (18 sources) alpha-Adrenergic Wilder, beta-Adrenergic Wilder Start: 09-18-2022 take 1 tablet by mouth in the morning carvedilol (Coreg) 25 MG tablet Indications: Primary hypertension Take 1 tablet (25 mg) by mouth in the morning and 1 tablet (25 mg) in the evening. Take with meals. Take with food.. 180 tablet 1 04/09/2024 Active eplerenone 50 mg oral tablet (20 sources) Aldosterone Antagonist Start: 11-12-2023 take 1 tablet by mouth in the morning eplerenone (Inspra) 50 MG tablet Indications: Hypertensive heart disease without heart failure Take 1 tablet (50 mg) by mouth in the morning and 1 tablet (50 mg) before bedtime. 180 tablet 1 04/09/2024 Active Start: 01-08-2023 End: 11-12-2023 take 1 tablet by mouth once daily eplerenone (Inspra) 50 MG tablet Indications: Hypertensive heart disease without heart failure (CMS/HCC) TAKE 1 TABLET BY MOUTH EVERY DAY 30 tablet 01/08/2023 11/12/2023 Discontinued 24 hr isosorbide mononitrate 60 mg extended release oral tablet (13 sources) Nitrate Vasodilator Start: 12-17-2023 End: 03-25-2027 take 1 tablet by mouth once daily isosorbide mononitrate ER (Imdur) 60 MG 24 hr tablet Indications: Abnormal stress test , High coronary artery calcium score , Atherosclerosis of both carotid arteries Take 1 tablet (60 mg) by mouth Daily Do not crush or chew. 90 tablet 1 04/09/2024 03/25/2027 Active iv contrast (will be provided with radiology test) (1 source) Start: 01-29-2024 End: 01-30-2024 inject 1 dose intravenously once iv contrast (will be provided with radiology test) CTA Coronary. No IV access, insert saline lock prior to the sedation, infusion, injection for imaging exam. Discontinue saline lock post exam. If Pt. has a central line or IVAD, may access for administration according to line specific nursing protocol. Once exam is complete flush line and de-access according to line specific nursing protocol in the CT contrast administration guidelines link. 1 Each 01/29/2024 01/30/2024 Active losartan potassium 100 mg oral tablet (18 sources) Angiotensin 2 Receptor Wilder Start: 03-07-2023 take 1 tablet by mouth at bedtime losartan (Cozaar) 100 MG tablet Indications: Hypertensive heart disease without heart failure Take 1 tablet (100 mg) by mouth at bedtime 90 tablet 1 04/09/2024 Active MOUNJARO 2.5 mg/0.5 mL pen injector (9 sources) Start: 11-23-2023 inject 5 mg by subcutaneous injection every week MOUNJARO 2.5 mg/0.5 mL pen injector Inject 5 mg subcutaneously one time a week. 11/23/2023 Active Completed/Discontinued Medications Medication Drug Class(es) Dates Sig (Normalized) Sig (Original) 24 hr buPROPion hydrochloride 150 mg extended release oral tablet (2 sources) Aminoketone Start: 07-17-2022 End: 11-12-2023 take 1 tablet by mouth every twenty-four hours in the morning buPROPion XL (Wellbutrin XL) 150 MG 24 hr tablet Indications: Chewing tobacco nicotine dependence with nicotine-induced disorder TAKE 1 TABLET BY MOUTH IN THE MORNING 90 tablet 3 07/17/2022 11/12/2023 Discontinued (Therapy completed) chlorthalidone 25 mg oral tablet (4 sources) Thiazide-like Diuretic Start: 11-21-2023 End: 11-22-2023 take 1 tablet by mouth once daily at mealtime chlorthalidone (Hygroton) 25 MG tablet Indications: Hypertension, unspecified type (CMS/HCC) TAKE 1 TABLET BY MOUTH EVERY DAY IN THE MORNING WITH FOOD 90 tablet 3 11/21/2023 11/22/2023 Discontinued Start: 11-23-2022 End: 11-12-2023 take 1 tablet by mouth at mealtime chlorthalidone (Hygroton) 25 MG tablet Indications: Hypertension, unspecified type (CMS/HCC) TAKE 1 TABLET BY MOUTH IN THE MORNING WITH FOOD 90 tablet 3 11/23/2022 11/12/2023 Discontinued (Side effects) furosemide 20 mg oral tablet (5 sources) Loop Diuretic Start: 11-05-2023 End: 03-31-2024 furosemide (LASIX) 20 mg tablet Take 20 mg by mouth as needed. 11/05/2023 03/31/2024 Discontinued metoprolol tartrate 50 mg oral tablet (7 sources) beta-Adrenergic Wilder Start: 01-29-2024 End: 05-21-2024 metoprolol tartrate, short acting, (LOPRESSOR) 50 mg tablet Take one 50 mg tablet the evening prior to the CTA examination, take another 50 mg tablet the morning of the CTA examination. 2 tablet 01/29/2024 05/21/2024 Discontinued nitroglycerin 0.3 mg sublingual tablet (18 sources) Nitrate Vasodilator Start: 01-29-2024 End: 05-21-2024 take 1 tablet under the tongue once nitroglycerin sublingual (NITROQUICK) 0.3 mg SL tablet Dissolve 1 tablet under the tongue one time only for 1 dose. To be administered in Radiology for CTA exam 1 tablet 01/29/2024 05/21/2024 Discontinued Start: 12-17-2023 End: 12-16-2024 nitroglycerin (Nitrostat) 0. 4 MG SL tablet Indications: Abnormal stress test , High coronary artery calcium score , Atherosclerosis of both carotid arteries Place 1 tablet (0.4 mg) under the tongue every 5 (five) minutes if needed for chest pain 90 tablet 12 12/17/2023 12/16/2024 Active sildenafil 100 mg oral tablet (2 sources) Phosphodiesterase 5 Inhibitor Start: 08-12-2024 End: 08-17-2024 take 1 tablet by mouth once daily as needed sildenafil (Viagra) 100 MG tablet Indications: Erectile dysfunction, unspecified erectile dysfunction type Take 1 tablet (100 mg) by mouth Daily as needed for erectile dysfunction USE GOOD RX 30 tablet 08/12/2024 08/17/2024 Discontinued (Reorder) spironolactone 50 mg oral tablet (4 sources) Aldosterone Antagonist End: 11-22-2023 take 1 tablet by mouth once daily spironolactone (Aldactone) 50 MG tablet Take 50 mg by mouth Daily 11/22/2023 Discontinued Tirzepatide (Mounjaro) 2.5 MG/0.5ML solution auto-injector (5 sources) Start: 12-03-2023 End: 12-17-2023 inject 2.5 mg by subcutaneous injection every week Tirzepatide (Mounjaro) 2.5 MG/0.5ML solution auto-injector Indications: Type 2 diabetes mellitus with other circulatory complication, without long-term current use of insulin (CMS/HCC) INJECT 2.5 MG SUBCUTANEOUSLY ONE TIME PER WEEK 2 mL 1 12/03/2023 12/17/2023 Discontinued Start: 11-22-2023 inject 2.5 mg by sub cutaneous injection every week Tirzepatide (Mounjaro) 2.5 MG/0.5ML solution auto-injector Indications: Type 2 diabetes mellitus with other circulatory complication, without long-term current use of insulin (CMS/HCC) Inject 2.5 mg under the skin 1 (one) time per week 2 mL 11/22/2023 Active Tirzepatide (Mounjaro) 5 MG/0.5ML solution auto-injector (4 sources) Start: 01-14-2024 End: 08-19-2024 inject 5 mg by subcutaneous injection every week Tirzepatide (Mounjaro) 5 MG/0.5ML solution auto-injector Indications: Type 2 diabetes mellitus with other circulatory complication, without long-term current use of insulin (HCC) INJECT 5 MG UNDER THE SKIN ONCE A WEEK 6 mL 2 01/14/2024 08/19/2024 Discontinued (Dose adjustment) Start: 12-17-2023 inject 5 mg by subcu taneous injection every week Tirzepatide (Mounjaro) 5 MG/0.5ML solution auto-injector Indications: Type 2 diabetes mellitus with other circulatory complication, without long-term current use of insulin (CMS/HCC) Inject 5 mg under the skin 1 (one) time per week 2 mL 12/17/2023 Active Tirzepatide-Weight Management 10 MG/0.5ML solution auto-injector (2 sources) Start: 08-12-2024 End: 08-19-2024 inject 10 mg by subcutaneous injection every week Tirzepatide-Weight Management 10 MG/0.5ML solution auto-injector Indications: Type 2 diabetes mellitus with other circulatory complication, without long-term current use of insulin (HCC) Inject 10 mg under the skin 1 (one) time per week 0.5 mL 4 08/12/2024 08/19/2024 Discontinued (Side effects) Problems Active Problems Problem Classification Problem Date Documented Date Episodic/Chronic Chronic kidney disease (2 sources) Chronic kidney disease stage 3A ; Translations: [Chronic kidney disease, stage 3a (HCC) ([facility]/HCC)] 11-12-2023 Chronic Congestive heart failure; nonhypertensive (3 sources) Left ventricular failure, unspecified; Translations: [Pulmonary edema] Onset: 12-12-2023 11-12-2023 Chronic Coronary atherosclerosis and other heart disease (6 sources) Calcification of coronary artery; Translations: [Coronary arteriosclerosis] Onset: 04-08-2024 12-17-2023 Chronic Coronary atherosclerosis and other heart disease (2 sources) Coronary atherosclerosis and other heart disease Onset: 02-06-2017 Diabetes mellitus with complications (16 sources) Type 2 diabetes mellitus; Translations: [Type 2 diabetes mellitus with other circulatory complications] Onset: 11-23-2023 11-22-2023 Chronic Diabetes mellitus without complication (1 source) Type 2 diabetes mellitus without complication; Translations: [Type 2 diabetes mellitus without complications] 01-29-2024 Chronic Disorders of lipid metabolism (17 sources) Mixed hyperlipidemia; Translations: [Mixed hyperlipidemia] Onset: 02-06-2017 11-12-2023 Chronic Essential hypertension (3 sources) Hypertensive disorder; Translations: [Essential (primary) hypertension] 01-29-2024 Chronic Hypertension with complications and secondary hypertension (20 sources) Hypertensive heart disease; Translations: [Hypertensive heart disease without heart failure] Onset: 11-12-2023 Resolved: 11-23-2023 11-22-2023 Chronic Occlusion or stenosis of precerebral arteries (17 sources) Bilateral atherosclerosis of carotid arteries; Translations: [Occlusion and stenosis of bilateral carotid arteries] Onset: 11-12-2023 11-23-2023 Chronic Other and ill-defined heart disease (1 source) Cardiomegaly; Translations: [Cardiomegaly] 01-29-2024 Chronic Other and ill-defined heart disease (1 source) Cardiomegaly; Translations: [Cardiomegaly] Onset: 01-29-2024 Chronic Other lower respiratory disease (1 source) Dyspnea; Translations: [Shortness of breath] 03-31-2024 Episodic Other male genital disorders (2 sources) Male erectile dysfunction, unspecified; Translations: [Impotence of organic origin] 08-12-2024 Chronic Other nutritional; endocrine; and metabolic disorders (4 sources) Hypercalcemia; Translations: [HYPERCALCEMIA] Onset: 01-26-2021 Chronic Other nutritional; endocrine; and metabolic disorders (6 sources) Severe obesity; Translations: [Class 2 severe obesity due to excess calories with serious comorbidity and body mass index (BMI) of 35.0 to 35.9 in adult ([facility])] Onset: 12-17-2023 12-17-2023 Chronic Other nutritional; endocrine; and metabolic disorders (2 sources) Obesity caused by energy imbalance; Translations: [Morbid (severe) obesity due to excess calories] 12-18-2023 Chronic Other nutritional; endocrine; and metabolic disorders (2 sources) Body mass index 30+ - obesity; Translations: [Body mass index (BMI) 35.0-35.9, adult] 12-18-2023 Chronic Other nutritional; endocrine; and metabolic disorders (2 sources) Morbid obesity; Translations: [Morbid (severe) obesity due to excess calories] 11-12-2023 Chronic Other nutritional; endocrine; and metabolic disorders (1 source) Overweight; Translations: [Overweight] 01-29-2024 Episodic Residual codes; unclassified (2 sources) High sugar diet; Translations: [Other specified health status] 11-12-2023 Episodic Past or Other Problems Problem Classification Problem Date Documented Date Episodic/Chronic Diabetes mellitus without complication (11 sources) Prediabetes; Translations: [Prediabetes] Onset: 11-12-2023 Resolved: 12-17-2023 11-12-2023 Episodic Other screening for suspected conditions (not mental disorders or infectious disease) (20 sources) Calcification of coronary artery; Translations: [Abnormal findings on diagnostic imaging of heart and coronary circulation] Onset: 11-12-2023 Resolved: 04-28-2024 11-23-2023 Episodic Results Test Name Value Interpretation Reference Range Facility [facility] 08-30-2024 CNCO Letter Text Normal [facility] HbA1c (Bld) [Mass fraction]o n 08-12-2024 Interpretation and review of laboratory results Normal [facility] 08-12-2024 HbA1c (Bld) [Mass fraction] 5.6 % [facility] CNOVon 05-21-2024 CNOV Office Visit (CATHMN ) ALBIN TODD ([id number]) 1960 M Date Time Provider Department 05/21/24 8:30 AM MAYTE AHN During your visit today, we recorded the following information about you: Pulse Respiration Blood pressure Weight 82/minute 15/minute 146/73 96.4 kg Height 1.626 m Mayte Ahn MD 05/21/2024 9:27 AM Signed [facility] [place] [facility] Department of Cardiovascular Medicine SECTION OF INTERVENTIONAL CARDIOLOGY OUTPATIENT VISIT DATE May 21, 2024 OUTPATIENT VISIT TYPE Followup PRIMARY CARE PHYSICIAN: Beverley Owens NP [address] [facility] [address] [place] [address] CHIEF COMPLAINT: Followup HISTORY OF PRESENT ILLNESS: Mr. Todd is a 63 year old male with a history of hypertension, hypercholesterolemia, and diabetes mellitus, presenting for evaluation following a recent hospitalization for dyspnea and an abnormal stress. A CTA was done showing severe disease and cath was advised. This was done in and this showed a GREETER of the RCA with good collaterals and a moderate mid LAD. Given absence of symptoms and mild ischemia, I advised medical therapies. He is overall feeling well. He has no chest pain or JOHNSTON. He is not exercising but walks in his yard which is an acre for about 15-20 minutes at a time. He has no chest pain or JOHNSTON. He has no bleeding or fainting or falls or dizziness of aches PAST MEDICAL HISTORY Diagnosis Date Abnormal stress test Cardiomegaly Noted on CXR with EF on echo at the lower limits of normal Coronary artery disease Diabetes mellitus (HCC) HLD (hyperlipidemia) HTN (hypertension) Skin cancer History reviewed. No pertinent surgical history. SOCIAL HISTORY Social History Tobacco Use Smoking status: Never Smokeless tobacco: Current Types: Snuff Vaping Use Vaping status: Never Used Substance Use Topics Alcohol use: Yes Comment: rare Drug use: Not Currently FAMILY HISTORY Problem Relation Age of Onset Coronary Artery Disease Mother 75 stents Heart Attack Mother 75 Hypertension Mother Stroke Mother Cancer Father No Known Problems Brother No Known Problems Sister ALLERGIES: ALLERGIES Allergen Reactions Ozempic [Semaglutid* Other: See Comments dizziness Spironolactone Other: See Comments Breast tenderness MEDICATIONS: Current Outpatient Medications Medication Sig atorvastatin (LIPITOR) 40 mg tablet Take 1 tablet by mouth once daily. amLODIPine (NORVASC) 5 mg tablet Take 5 mg by mouth once daily. aspirin, enteric coated (ASPIRIN, ENTERIC COATED) 81 mg EC tablet Take 81 mg by mouth once daily. carvedilol (COREG) 25 mg tablet Take 25 mg by mouth two times a day with meals. eplerenone (INSPRA) 50 mg tablet Take 50 mg by mouth two times a day. isosorbide mononitrate ER (IMDUR) 60 mg 24 hr tablet Take 60 mg by mouth once daily. losartan (COZAAR) 100 mg tablet Take 100 mg by mouth once daily. MOUNJARO 2.5 mg/0.5 mL pen injector Inject 5 mg subcutaneously one time a week. nitroglycerin sublingual (NITROQUICK) 0.4 mg SL tablet Dissolve 0.4 mg under the tongue every 5 minutes as needed. No current facility-administered medications for this visit. REVIEW OF SYSTEMS: ROS see above PHYSICAL EXAMINATION: 05/21/24 0812 BP: 146/73 Pulse: 82 Resp: 15 SpO2: 97% Weight: 96.4 kg (212 lb 9.6 oz) Height: 162.6 cm (5' 4 ) Body mass index is 36.49 kg/m?. General: Well appearing, in no acute distress, speaking in complete sentences.-but overweight Head/Eyes: Grossly normal Lungs: Clear to auscultation and no rales with good effort Heart: Regular rhythm,S1, S2 normal, no S3, no S4, no rub and no murmur. Abdomen: Soft, nontender, bowel sounds normal, no palpable organomegaly, no bruits. Extremities: not examined for edema as he is wearing boots today Musculoskeletal: Normal gait and ambulation Neuro: Oriented to time, place and person IMPRESSION: Mr. Todd is a 63 year old male with hypertension presenting with acute pulmonary edema in the setting of hypertensive crisis from not taking medications. His echo showed LVH and borderline normal LV function . CCTA with severe CAD and cath done showing moderate LAD and GREETER of the RCA with collaterals in and medically managed. # Hypertension, unspecified type (I10) Previously poorly controlled, leading to hypertensive urgency and dyspnea during hospitalization in October. Last visit was controlled but today is elevated. He states his readings are good. Advised weight loss and diet and advised to monitor. But explained goals and if still elevated he may need adjustment of meds Coronary artery disease Nuclear stress test showed ischemia in the inferior wall with large gut uptake which can reduce accuracy. CCTA done (as (more content not included)... Normal [facility] Comprehensive metabolic 2000 panelon 05-21-2024 Albumin [Mass/Vol] 4.8 g/dL Normal 3.9-4.9 [facility] Comment on above: Order Comment: Speci men Type: BLOOD SPECIMENOrdering Facility: [facility] Address: [address] [place] [address] Performed By: #### 2 4323-8, 59387-7 ####[facility] LABCLIA [id number] [address] [address] [place] ALP [Catalytic activity/Vol] 135 U/L High 38-113 [facility] Comment on above: Order Comment: Unai men Type: BLOOD SPECIMENOrdering Facility: [facility] Address: [address] [place] [address] Performed By: #### 2 4323-8, 31857-2 ####[facility] LABCLIA [id number] [address] [address] [place] ALT [Catalytic activity/Vol] 35 U/L Normal 10-54 [facility] Comment on above: Order Comment: Speci men Type: BLOOD SPECIMENOrdering Facility: [facility] Address: [facility] [place] [address] Performed By: #### 2 4323-8, 35244-6 ####[facility] LABCLIA [id number] [facility] [address] [place] [address] [place] Anion gap [Moles/Vol] 13 mmol/L Normal 8-15 [facility] Comment on above: Order Comment: Speci men Type: BLOOD SPECIMENOrdering Facility: [facility] Address: [address] [id number] Performed By: #### 2 4323-8, 50316-5 ####[facility] LABCLIA [id number] [facility] [id number] [address] [place] AST [Catalytic activity/Vol] 28 U/L Normal 14-40 [facility] Comment on above: Order Comment: Speci men Type: BLOOD SPECIMENOrdering Facility: [facility] Address: [address] [place], [place] [id number] Performed By: #### 2 4323-8, 35257-9 ####[facility] LABCLIA [id number] [facility] [address] [place] [address] [place] Bilirubin [Mass/Vol] 2.1 mg/dL High 0.2-1.3 [facility] Comment on above: Order Comment: Speci men Type: BLOOD SPECIMENOrdering Facility: [facility] Address: [address] [place], [place] [id number] Performed By: #### 2 4323-8, 24661-4 ####[facility] LABCLIA [id number] [facility] [address] [place] [address] [place] Calcium [Mass/Vol] 10.5 mg/dL High 8.5-10.2 [facility] Comment on above: Order Comment: Speci men Type: BLOOD SPECIMENOrdering Facility: [facility] Address: [address] [place] [address] Performed By: #### 2 4323-8, 88563-1 ####[facility] LABCLIA [id number] [facility] [address] [place] [address] [place] Chloride [Moles/Vol] 102 mmol/L Normal 98-107 [facility] Comment on above: Order Comment: Speci men Type: BLOOD SPECIMENOrdering Facility: [facility] Address: [address] [place] [address] Performed By: #### 2 4323-8, 01617-3 ####[facility] LABIA [id number] [place] [id number] [place] CO2 [Moles/Vol] 25 mmol/L Normal 22-30 [facility] Comment on above: Order Comment: Speci men Type: BLOOD SPECIMENOrdering Facility: [facility] Address: [address] [place] [address] Performed By: #### 2 4323-8, 01101-9 ####[facility] LABIA [id number] [place] [id number] [place] Creatinine [Mass/Vol] 1.20 mg/dL Normal 0.73-1.22 [facility] Comment on above: Order Comment: Speci men Type: BLOOD SPECIMENOrdering Facility: [facility] Address: [address] [place] [address] Performed By: #### 2 4323-8, 61961-1 ####[facility] LABIA [id number] [place] [id number] [place] Creatinine and Glomerular filtration rate.predicted panel (S/P/Bld) 68 mL/min/1.73m??? Normal >=60 [facility] Comment on above: Order Comment: Speci men Type: BLOOD SPECIMENOrdering Facility: [facility] Address: [address] [place] [address] Result Comment: Heaven mated Glomerular Filtration Rate (eGFR) is calculated using the 2020 CKD-EPI creatinine equation. This equation utilizes serum creatinine, sex, and age as parameters. The creatinine assay has traceable calibration to isotope dilution-mass spectrometry. Refer to KDIGO guidelines for clinical interpretation. In patients with unstable renal function, e.g. those with acute kidney injury, the eGFR may not accurately reflect actual GFR. Performed By: #### 2 4323-8, 33239-3 ####[facility] LABIA [id number] [address] [address] [place] Glucose [Mass/Vol] 108 mg/dL High 74-99 [facility] Comment on above: Order Comment: Speci men Type: BLOOD SPECIMENOrdering Facility: [facility] Address: [address] [place] [address] Result Comment: The [place] Diabetes Association (ADA) provides guidance for cutoff values for fasting glucose and random glucose. The ADA defines fasting as no caloric intake for at least 8 hours. Fasting plasma glucose results between 100 to 125 mg/dL indicate increased risk for diabetes (prediabetes). Fasting plasma glucose results greater than or equal to 126 mg/dL meet the criteria for diagnosis of diabetes. In the absence of unequivocal hyperglycemia, results should be confirmed by repeat testing. In a patient with classic symptoms of hyperglycemia or hyperglycemic crisis, random plasma glucose results greater than or equal to 200 mg/dL meet the criteria for diagnosis of diabetes. Reference: Standards of Medical Care in Diabetes 2016, [place] Diabetes Association. Diabetes Care. 2016.39(Suppl 1). Performed By: #### 2 4323-8, 99324-0 ####[facility] LABCLIA [id number] [place] [address] [place] Potassium [Moles/Vol] 5.0 mmol/L Normal 3.7-5.1 [facility] Comment on above: Order Comment: Valencia lau Type: BLOOD SPECIMENOrdering Facility: [facility] Address: [address] [place] [address] Performed By: #### 2 4323-8, 87456-5 ####[facility] LABCLIA [id number] [place] [id number] [place] Protein [Mass/Vol] 8.0 g/dL Normal 6.3-8.0 [facility] Comment on above: Order Comment: Unai men Type: BLOOD SPECIMENOrdering Facility: [facility] Address: [address] [place] [address] Performed By: #### 2 4323-8, 55415-9 ####[facility] LABCLIA [id number] [address] [address] [place] Sodium [Moles/Vol] 140 mmol/L Normal 136-144 [facility] Comment on above: Order Comment: Speci men Type: BLOOD SPECIMENOrdering Facility: [facility] Address: [address] [place] [address] Performed By: #### 2 4323-8, 19630-2 ####[facility] LABCLIA [id number] [place] [address] [place] Urea nitrogen [Mass/Vol] 18 mg/dL Normal 9-24 [facility] Comment on above: Order Comment: Speci men Type: BLOOD SPECIMENOrdering Facility: [facility] Address: [address] [place] [address] Performed By: #### 2 4323-8, 75279-4 ####[facility] LABCLIA [id number] [place] [address] [place] Lipid 1996 panelon 5 Cholesterol [Mass/Vol] 112 mg/dL Normal <200 [facility] Comment on above: Order Comment: Speci men Type: BLOOD SPECIMENOrdering Facility: [facility] Address: [address] [place] [address] Result Comment: <200 mg/dL, Desirable 200-239 mg/dL, Borderline high >239 mg/dL, High Performed By: #### 2 4323-8, 60210-5 ####[facility] LABCLIA [id number] [address] [place] Cholesterol in HDL [Mass/Vol] 33 mg/dL Low >39 [facility] Comment on above: Order Comment: Speci men Type: BLOOD SPECIMENOrdering Facility: [facility] Address: [address] [place] [address] Result Comment: 40-5 9 mg/dL, Acceptable >59 mg/dL, High: Negative risk factor for coronary heart disease <40 mg/dL, Low: Positive risk factor for coronary heart disease Performed By: #### 2 4323-8, 08552-9 ####[facility] LABCLIA [id number] [place] [address] [place] Cholesterol in LDL [Mass/Vol] 54 mg/dL Normal <100 [facility] Comment on above: Order Comment: Speci men Type: BLOOD SPECIMENOrdering Facility: [facility] Address: [address] [place] [address] Result Comment: <100 mg/dL, Optimal 100-129 mg/dL, Near optimal/above optimal 130-159 mg/dL, Borderline high 160-189 mg/dL, High >189 mg/dL, Very high Secondary prevention optimal LDL Cholesterol levels are recommended to be < 70 mg/dL Performed By: #### 2 4323-8, 19856-9 ####[facility] [id number] [address] [place] Cholesterol in LDL/Cholesterol in HDL [Mass ratio] 1.64 {ratio} Normal <2.54 [facility] Comment on above: Order Comment: Speci men Type: BLOOD SPECIMENOrdering Facility: [facility] Address: [address] [place] [address] Result Comment: Refe rence: 1. National Cholesterol Education Program ATP III Guideline At-A-Glance Quick Desk Reference: National Heart, Lung, and Blood [place]. National Institutes of Health. 2001: NIH Publication No. 01-3305. 2. An International Atherosclerosis Society position paper: global recommendations for the management of dyslipidemia: executive summary, Atherosclerosis. 2014: 232(2):410-413. Performed By: #### 2 4323-8, 25065-4 ####[facility] LABIA [id number] [place] [address] [place] Cholesterol in VLDL [Mass/Vol] 25 mg/dL Normal <30 [facility] Comment on above: Order Comment: Speci men Type: BLOOD SPECIMENOrdering Facility: [facility] Address: [address] [place] [address] Performed By: #### 2 4323-8, 66937-5 ####[facility] LABCLIA [id number] [place] [address] [place] Cholesterol non HDL [Mass/Vol] 79 mg/dL Normal <130 [facility] Comment on above: Order Comment: Speci men Type: BLOOD SPECIMENOrdering Facility: [facility] Address: [address] [place] [address] Result Comment: <130 mg/dL, Optimal 130-159 mg/dL, Near optimal/above optimal 160-189 mg/dL, Borderline high 190-219 mg/dL, High >219 mg/dL, Very high Secondary prevention optimal non HDL Cholesterol levels are recommended to be <100 mg/dL Performed By: #### 2 4323-8, 95869-5 ####[facility] LABCLIA [id number] [place] [address] [place] Cholesterol.total/C holesterol in HDL [Mass ratio] 3.39 {ratio} Normal <5.10 [facility] Comment on above: Order Comment: Speci men Type: BLOOD SPECIMENOrdering Facility: [facility] Address: [address] [place] [address] Performed By: #### 2 4323-8, 23714-1 ####[facility] LABCLIA [id number] [address] [place] FASTING TIME 12 hrs Normal [facility] Comment on above: Order Comment: Speci men Type: BLOOD SPECIMENOrdering Facility: [facility] Address: [address] [place] [address] Performed By: #### 2 4323-8, 83668-4 ####[facility] LABCLIA [id number] [place] [address] [place] Triglyceride [Mass/Vol] 124 mg/dL Normal <150 [facility] Comment on above: Order Comment: Speci men Type: BLOOD SPECIMENOrdering Facility: [facility] Address: [address] [place] [address] Result Comment: <150 mg/dL, Normal 150-199 mg/dL, Borderline high 200-499 mg/dL, High >499 mg/dL, Very high Performed By: #### 2 4323-8, 99807-5 ####[facility] LABCLIA [id number] [place] [address] [place] CARD CATH DIAGNOSTICon 04-08 CARD CATH DIAGNOSTIC Site Id: [facility] Lab #: [id number] Care Companion 3 Study Date: 04/08/2024 Start Time: 04/08/2024 8:25:17 AM End Time: 04/08/2024 9:20:08 AM Physician Name Madhavi Ramos M.D., M.D. Nursing/Kip Palencia R.N., Kip Pretty R.N. RPhillip. + + PATIENT INFORMATION + + Name: ALBIN TODD : 1960 Age: 63 years Gender: M Height: 64 in / 163 cm Weight: 213.40 lb / 96.80 kg BMI: 36.43 kg/m BSA: 2.01 m Allergies: YES + ---------+ CLINICAL HISTORY/INDICATION(s) + ---------+ Intermediate-risk noninvasive findings in a medically managed patient with worsening/limiting symptoms and worsening findings; AUC score = 7. CAD Presentation: No Symptoms, No Angina Angina Classification (within 2 weeks): No Angina Anti-Angina Meds (within 2 weeks): No. No Heart Failure No Cardiomyopathy - No LV Dysfunction Pre-Op Evaluation before Non-Card Surg: No Cardiogenic Shock: No Cardiac Arrest: No Mr. Todd is a 63 yo M with HTN, HLD, DMII who presented to an outside hospital with acute pulmonary edema and elevated troponin. A stress test showed a small inferior defect and a CCTA showed heavy calcium and suggested severe CAD. He is thus referred here today for [facility] for further evaluation. Access Point Sheath Size Hemostasis Method Right Radial Artery 6F Short Radial TR band + + DIAGNOSTIC FINDINGS + + Coronary Anatomy: Co-Dominant Injection Site(s): Coronary Artery, Left Main Coronary Artery and Right Coronary Artery LMT: The LMT is normal. Additional Comment: The left main is a large caliber vessel that bifurcates into the LAD and LCx. LAD: The mid LAD is narrowed 60 % - tubular, focal disease and moderately calcified. Additional Comment: The LAD ia a large caliber vessel that extends to the apex and gives off medium caliber D1, D2 and septal perforators.The mid-LAD has a focal/calcified lesion (60%). The remaining vessel has mild diffuse disease. LCX: The Circumflex has mild diffuse disease. Additional Comment: The LCX is a large caliber codominant vessel that gives off medium caliber OM1 a smaller OM2 and a large caliber LPL. RAMUS: The Ramus is Absent. RCA: The proximal RCA is narrowed 70 % - focal disease. The mid RCA is narrowed 100 % - focal disease. Additional Comment: The RCA is a medium caliber codominant vessel. There is a focal 70% stenosis of the proximal RCA and a GREETER of the mid RCA. Grade III collaterals are noted from the LAD to the PDA. +-------+ IMAGING +-------+ Intravascular imaging not performed. + ----+ HEMODYNAMIC INTERROGATION + ----+ Hemodynamic interrogation not performed. + + HEMODYNAMICS + + + + IMPRESSION/PLAN + + Impression: - Codominant system. - GREETER of mid-RCA with GRade III collaterals - Moderate mid LAD -Mild LCX Recommended Treatment: Medical Therapy. Plan: -Given absense of current symptoms and small defect on stress test would favor optimization of medical therapies - Continue risk factor mitigation for the prevention/progression of CAD + + ADVERSE OUTCOME(s)/COMPLICATIO N(s) + + None + ---------+ PROCEDURAL & TECHNICAL DETAILS + ---------+ PROCEDURE SEQUENCE: Time Procedure Performed 04/08/2024 9:15:41 AM Left Heart Cath PROCEDURE DETAILS: Contrast: Contrast Type Total Infused Omnipaque 150ml 50 Blood Loss: < 30ml Specimen: No Specimen Obtained Baseline: HGB: 16.1 CREATININE: 1.2 GLUCOSE: 123 RADIATION: Procedure performed under Fluoroscopic Guidance Total Dose Dose Area Product Total Exposure Time 491.90 mGy 28.51 Gy*cm 406.70 sec + + MEDICAL HISTORY + + Left Ventricle EF: LVEF 50, last assessed on 12/2023, by SPECT. Physician Intra Service Procedure Start Time: 04/08/2024 8:40:45 AM Physician Intra Service Procedure End Time: 04/08/2024 9:20:08 AM Attending Physician Presence Attestation: Entire Procedure Electronically submitted by: Mayte Jacinto MD On: 04/08/2024 at 6:15:22 PM Final CC [facility] : [id number] SISUID See Link below for Image Normal [facility] ECG COMPLETEon 04-08-2024 ECG COMPLETE Ventricular Rate : 8 8 BPM Atrial Rate : 88 BPM P-R Interval : 216 ms QRS Duration : 94 ms Q-T Interval : 362 ms QTC Calculation(Bazett) : 438 ms Calculated P [place] : 46 degrees Calculated R [place] : 3 degrees Calculated T [place] : 57 degrees SINUS RHYTHM WITH 1ST DEGREE AV BLOCK OTHERWISE NORMAL ECG Confirmed by FRANCIS THOMPSON MD ([id number]) on 04/16/2024 10:22:31 PM NAME : ALBIN TODD PID : [id number] : 1960 Gender : Male Race : ORD : [id number] Procedure Date : Apr 08 2024 07:31:01 Edit Date : Apr 16 2024 22:22:33 Diagnosis: SINUS RHYTHM WITH 1ST DEGREE AV BLOCK OTHERWISE NORMAL ECG Confirmed by FRANCIS THOMPSON MD ([id number]) on 04/16/2024 10:22:31 PM Test Reason : Pre-OP Location : 23 : [place] [address] Overread By : FRANCIS THOMPSON MD Edited By : FRANCIS THOMPSON MD Referred By : , Acquired by : [id number], Normal [facility] JHONNYALBIN Juan ([id number]) 1960 Date Time Provider Department 04/07/24 MAYTE AHN During your visit today, we recorded the following information about you: Sanna Curtis RN 04/07/2024 1:04 PM Signed CARDIOVASCULAR LAB INSTRUCTIONS: Readiness to Learn: Cognitive Ability: Alert and oriented Motivation To Learn: Interested Family/Significant Other Support: Unable to assess - Family not present Instruction Provided To: Patient Patient Learns Best By: Verbal Instruction Factors Affecting Learning: None Physical Limitations Affecting Learning: None Learning Response: Procedure: Diagnostic Cath with Intervention Pre procedure education topics: Arrival time/NPO Status/Medications/Tra mani Instructions/Restricti ons Patient/Family Response Evaluation: Verbalizes understanding Follow Up Plan and Medication: As directed by physician Instruction/Supplement al Material Given: Cardiac catheterization instructions, procedure information, hospital information, hotel information. Instructed By Sanna Curtis RN. In Department of CARDIOLOGY. Allergies As of Date: 04/07/2024 Noted Allergy Reaction OZEMPIC (SEMAGLUTIDE) 01/29/2024 14 - Other: See Comments Comments: dizziness SPIRONOLACTONE 01/29/2024 14 - Other: See Comments Comments: Breast tenderness Date Reviewed: 03/31/2024 Reviewed by: Mayte Ahn MD - Fully Assessed Reason for Visit: Patient Education [91] Prescriptions as of 04/07/2024 - atorvastatin (LIPITOR) 40 mg tablet Take 1 tablet by mouth once daily. - amLODIPine (NORVASC) 5 mg tablet Take 5 mg by mouth once daily. - aspirin, enteric coated (ASPIRIN, ENTERIC COATED) 81 mg EC tablet Take 81 mg by mouth once daily. - carvedilol (COREG) 25 mg tablet Take 25 mg by mouth two times a day with meals. - eplerenone (INSPRA) 50 mg tablet Take 50 mg by mouth two times a day. - isosorbide mononitrate ER (IMDUR) 60 mg 24 hr tablet Take 60 mg by mouth once daily. - losartan (COZAAR) 100 mg tablet Take 100 mg by mouth once daily. - MOUNJARO 2.5 mg/0.5 mL pen injector Inject 5 mg subcutaneously one time a week. - nitroglycerin sublingual (NITROQUICK) 0.4 mg SL tablet Dissolve 0.4 mg under the tongue every 5 minutes as needed. - metoprolol tartrate, short acting, (LOPRESSOR) 50 mg tablet Take one 50 mg tablet the evening prior to the CTA examination, take another 50 mg tablet the morning of the CTA examination. - nitroglycerin sublingual (NITROQUICK) 0.3 mg SL tablet Dissolve 1 tablet under the tongue one time only for 1 dose. To be administered in Radiology for CTA exam Problem List As Of Date: 04/07/2024 (None) Encounter Status:Closed by SANNA CURTIS on 04/07/24 Normal [facility] CBC W Auto Differential pane l (Bld)on 04-02-2024 Basophils (Bld) [#/Vol] 0.03 10*3/uL Normal <0.11 [facility] Comment on above: Order Comment: Speci men Type: BLOOD SPECIMENOrdering Facility: [facility] Address: [address] [place] [address] Performed By: #### 5 7021-8 ####[facility] LABCLIA [id number] [facility] [place] [address] [place] Basophils/100 WBC (Bld) 0.5 % Normal [facility] Comment on above: Order Comment: Speci men Type: BLOOD SPECIMENOrdering Facility: [facility] Address: [address] [place] [address] Performed By: #### 5 7021-8 ####[facility] LABCLIA [id number] [place] [address] [place] Differential cell count method Nom (Bld) Auto Normal [facility] Comment on above: Order Comment: Speci men Type: BLOOD SPECIMENOrdering Facility: [facility] Address: [address] [place] [address] Performed By: #### 5 7021-8 ####[facility] LABCLIA [id number] [place] [address] [place] Eosinophils (Bld) [#/Vol] 0.10 10*3/uL Normal <0.46 [facility] Comment on above: Order Comment: Speci men Type: BLOOD SPECIMENOrdering Facility: [facility] Address: [address] [place] [address] Performed By: #### 5 7021-8 ####[facility] LABCLIA [id number] [place] [address] [place] Eosinophils/100 WBC (Bld) 1.6 % Normal [facility] Comment on above: Order Comment: Speci men Type: BLOOD SPECIMENOrdering Facility: [facility] Address: [address] [place] [address] Performed By: #### 5 7021-8 ####[facility] LABCLIA [id number] [place] [address] [place] Erythrocyte distribution width (RBC) [Ratio] 12.8 % Normal 11.5-15.0 [facility] Comment on above: Order Comment: Speci men Type: BLOOD SPECIMENOrdering Facility: [facility] Address: [address] [place] [address] Performed By: #### 5 7021-8 ####[facility] LABIA [id number] [place] [address] [place] Hematocrit (Bld) [Volume fraction] 48.0 % Normal 39.0-51.0 [facility] Comment on above: Order Comment: Speci men Type: BLOOD SPECIMENOrdering Facility: [facility] Address: [address] [place] [address] Performed By: #### 5 7021-8 ####[facility] LABIA [id number] [place] [address] [place] Hemoglobin (Bld) [Mass/Vol] 16.1 g/dL Normal 13.0-17.0 [facility] Comment on above: Order Comment: Speci men Type: BLOOD SPECIMENOrdering Facility: [facility] Address: [address] [place] [address] Performed By: #### 5 7021-8 ####[facility] LABCLIA [id number] [place] [address] [place] Immature granulocytes (Bld) [#/Vol] 10*3/uL Normal <0.10 [facility] Comment on above: Order Comment: Speci men Type: BLOOD SPECIMENOrdering Facility: [facility] Address: [address] [place] [address] Performed By: #### 5 7021-8 ####[facility] LABIA [id number] [place] [address] [place] Immature granulocytes/100 WBC (Bld) 0.3 % Normal [facility] Comment on above: Order Comment: Speci men Type: BLOOD SPECIMENOrdering Facility: [facility] Address: [address] [place] [address] Performed By: #### 5 7021-8 ####[facility] LABCLIA [id number] [place] [address] [place] Lymphocytes (Bld) [#/Vol] 1.94 10*3/uL Normal 1.00-4.00 [facility] Comment on above: Order Comment: Speci men Type: BLOOD SPECIMENOrdering Facility: [facility] Address: [address] [place] [address] Performed By: #### 5 7021-8 ####[facility] LABCLIA [id number] [place] [address] [place] Lymphocytes/100 WBC (Bld) 30.6 % Normal [facility] Comment on above: Order Comment: Speci men Type: BLOOD SPECIMENOrdering Facility: [facility] Address: [address] [place] [address] Performed By: #### 5 7021-8 ####[facility] LABCLIA [id number] [place] [address] [place] MCH (RBC) [Entitic mass] 30.4 pg Normal 26.0-34.0 [facility] Comment on above: Order Comment: Speci men Type: BLOOD SPECIMENOrdering Facility: [facility] Address: [address] [place] [address] Performed By: #### 5 7021-8 ####[facility] LABCLIA [id number] [place] [address] [place] MCHC (RBC) [Mass/Vol] 33.5 g/dL Normal 30.5-36.0 [facility] Comment on above: Order Comment: Speci men Type: BLOOD SPECIMENOrdering Facility: [facility] Address: [address] [place] [address] Performed By: #### 5 7021-8 ####[facility] LABCLIA [id number] [place] [address] [place] MCV (RBC) [Entitic vol] 90.7 fL Normal 80.0-100.0 [facility] Comment on above: Order Comment: Speci men Type: BLOOD SPECIMENOrdering Facility: [facility] Address: [address] [place] [address] Performed By: #### 5 7021-8 ####[facility] LABCLIA [id number] [place] [address] [place] Monocytes (Bld) [#/Vol] 0.34 10*3/uL Normal <0.87 [facility] Comment on above: Order Comment: Speci men Type: BLOOD SPECIMENOrdering Facility: [facility] Address: [address] [place] [address] Performed By: #### 5 7021-8 ####[facility] LABIA [id number] [place] [address] [place] Monocytes/100 WBC (Bld) 5.4 % Normal [facility] Comment on above: Order Comment: Speci men Type: BLOOD SPECIMENOrdering Facility: [facility] Address: [address] [place] [address] Performed By: #### 5 7021-8 ####[facility] LABCLIA [id number] [place] [address] [place] Neutrophils (Bld) [#/Vol] 3.92 10*3/uL Normal 1.45-7.50 [facility] Comment on above: Order Comment: Speci men Type: BLOOD SPECIMENOrdering Facility: [facility] Address: [address] [place] [address] Performed By: #### 5 7021-8 ####[facility] LABCLIA [id number] [place] [address] [place] Neutrophils/100 WBC (Bld) 61.6 % Normal [facility] Comment on above: Order Comment: Speci men Type: BLOOD SPECIMENOrdering Facility: [facility] Address: [address] [place] [address] Performed By: #### 5 7021-8 ####[facility] LABCLIA [id number] [place] [address] [place] Nucleated RBC (Bld) [#/Vol] 10*3/uL Normal <0.01 [facility] Comment on above: Order Comment: Speci men Type: BLOOD SPECIMENOrdering Facility: [facility] Address: [address] [place] [address] Performed By: #### 5 7021-8 ####[facility] LABCLIA [id number] [place] [address] [place] Nucleated RBC/100 WBC (Bld) [Ratio] 0.0 /100 WBC Normal [facility] Comment on above: Order Comment: Speci men Type: BLOOD SPECIMENOrdering Facility: [facility] Address: [address] [place] [address] Performed By: #### 5 7021-8 ####[facility] LABCLIA [id number] [place] [address] [place] Platelet mean volume (Bld) [Entitic vol] 9.4 fL Normal 9.0-12.7 [facility] Comment on above: Order Comment: Speci men Type: BLOOD SPECIMENOrdering Facility: [facility] Address: [address] [place] [address] Performed By: #### 5 7021-8 ####[facility] LABCLIA [id number] [place] [address] [place] [place] Platelets (Bld) [#/Vol] 297 10*3/uL Normal 150-400 [facility] Comment on above: Order Comment: Speci men Type: BLOOD SPECIMENOrdering Facility: [facility] Address: [address] [place] [address] Performed By: #### 5 7021-8 ####[facility] LABIA [id number] [place] [address] [place] RBC (Bld) [#/Vol] 5.29 10*6/uL Normal 4.20-6.00 [facility] Comment on above: Order Comment: Speci men Type: BLOOD SPECIMENOrdering Facility: [facility] Address: [address] [place] [address] Performed By: #### 5 7021-8 ####[facility] LABIA [id number] [place] [address] [place] WBC (Bld) [#/Vol] 6.35 10*3/uL Normal 3.70-11.00 [facility] Comment on above: Order Comment: Speci men Type: BLOOD SPECIMENOrdering Facility: [facility] Address: [address] [place] [address] Performed By: #### 5 7021-8 ####[facility] LABIA [id number] [place] [address] [place] Comprehensive metabolic 2000 panelon 04-02-2024 Albumin [Mass/Vol] 4.6 g/dL Normal 3.9-4.9 [facility] Comment on above: Order Comment: Speci men Type: BLOOD SPECIMENOrdering Facility: [facility] Address: [address] [place] [address] Performed By: #### 2 4323-8 ####[facility] LABIA [id number] [place] [address] [place] ALP [Catalytic activity/Vol] 137 U/L High 38-113 [facility] Comment on above: Order Comment: Speci men Type: BLOOD SPECIMENOrdering Facility: [facility] Address: [address] [place] [address] Performed By: #### 2 4323-8 ####[facility] LABCLIA [id number] [facility] [place] [address] [place] ALT [Catalytic activity/Vol] 35 U/L Normal 10-54 [facility] Comment on above: Order Comment: Speci men Type: BLOOD SPECIMENOrdering Facility: [facility] Address: [address] [place] [address] Performed By: #### 2 4323-8 ####[facility] LABCLIA [id number] [place] [address] [place] Anion gap [Moles/Vol] 10 mmol/L Normal 8-15 [facility] Comment on above: Order Comment: Speci men Type: BLOOD SPECIMENOrdering Facility: [facility] Address: [address] [place] [address] Performed By: #### 2 4323-8 ####[facility] LABCLIA [id number] [place] [address] [place] AST [Catalytic activity/Vol] 25 U/L Normal 14-40 [facility] Comment on above: Order Comment: Speci men Type: BLOOD SPECIMENOrdering Facility: [facility] Address: [address] [place] [address] Performed By: #### 2 4323-8 ####[facility] LABCLIA [id number] [place] [address] [place] Bilirubin [Mass/Vol] 1.9 mg/dL High 0.2-1.3 [facility] Comment on above: Order Comment: Speci men Type: BLOOD SPECIMENOrdering Facility: [facility] Address: [address] [place] [address] Performed By: #### 2 4323-8 ####[facility] LABCLIA [id number] [place] [id number] [place] Calcium [Mass/Vol] 10.1 mg/dL Normal 8.5-10.2 [facility] Comment on above: Order Comment: Speci men Type: BLOOD SPECIMENOrdering Facility: [facility] Address: [address] [place] [address] Performed By: #### 2 4323-8 ####[facility] LABCLIA [id number] [place] [address] [place] Chloride [Moles/Vol] 105 mmol/L Normal 98-107 [facility] Comment on above: Order Comment: Speci men Type: BLOOD SPECIMENOrdering Facility: [facility] Address: [address] [place] [address] Performed By: #### 2 4323-8 ####[facility] LABCLIA [id number] [place] [address] [place] CO2 [Moles/Vol] 26 mmol/L Normal 22-30 [facility] Comment on above: Order Comment: Speci men Type: BLOOD SPECIMENOrdering Facility: [facility] Address: [address] [place] [address] Performed By: #### 2 4323-8 ####[facility] LABCLIA [id number] [place] [address] [place] Creatinine [Mass/Vol] 1.22 mg/dL Normal 0.73-1.22 [facility] Comment on above: Order Comment: Speci men Type: BLOOD SPECIMENOrdering Facility: [facility] Address: [address] [place] [address] Performed By: #### 2 4323-8 ####[facility] LABCLIA [id number] [place] [address] [place] Creatinine and Glomerular filtration rate.predicted panel (S/P/Bld) 67 mL/min/1.73m??? Normal >=60 [facility] Comment on above: Order Comment: Speci men Type: BLOOD SPECIMENOrdering Facility: [facility] Address: [address] [place] [address] Result Comment: Heaven mated Glomerular Filtration Rate (eGFR) is calculated using the 2020 CKD-EPI creatinine equation. This equation utilizes serum creatinine, sex, and age as parameters. The creatinine assay has traceable calibration to isotope dilution-mass spectrometry. Refer to KDIGO guidelines for clinical interpretation. In patients with unstable renal function, e.g. those with acute kidney injury, the eGFR may not accurately reflect actual GFR. Performed By: #### 2 4323-8 ####[facility] LABIA [id number] [place] [address] [place] Glucose [Mass/Vol] 123 mg/dL High 74-99 [facility] Comment on above: Order Comment: [place] lau Type: BLOOD SPECIMENOrdering Facility: [facility] Address: [address] [place] [address] Result Comment: The [place] Diabetes Association (ADA) provides guidance for cutoff values for fasting glucose and random glucose. The ADA defines fasting as no caloric intake for at least 8 hours. Fasting plasma glucose results between 100 to 125 mg/dL indicate increased risk for diabetes (prediabetes). Fasting plasma glucose results greater than or equal to 126 mg/dL meet the criteria for diagnosis of diabetes. In the absence of unequivocal hyperglycemia, results should be confirmed by repeat testing. In a patient with classic symptoms of hyperglycemia or hyperglycemic crisis, random plasma glucose results greater than or equal to 200 mg/dL meet the criteria for diagnosis of diabetes. Reference: Standards of Medical Care in Diabetes 2016, [place] [employer] Association. Diabetes Care. 2016.39(Suppl 1). Performed By: #### 2 4323-8 ####[facility] LABIA [id number] [place] [id number] [place] Potassium [Moles/Vol] 4.3 mmol/L Normal 3.7-5.1 [facility] Comment on above: Order Comment: [place] lau Type: BLOOD SPECIMENOrdering Facility: [facility] Address: [address] [place] [address] Performed By: #### 2 4323-8 ####[facility] LABIA [id number] [address] [address] [place] Protein [Mass/Vol] 7.7 g/dL Normal 6.3-8.0 [facility] Comment on above: Order Comment: Speci men Type: BLOOD SPECIMENOrdering Facility: [facility] Address: [address] [place] [address] Performed By: #### 2 4323-8 ####[facility] LABCLIA [id number] [place] [address] [place] Sodium [Moles/Vol] 141 mmol/L Normal 136-144 [facility] Comment on above: Order Comment: Speci men Type: BLOOD SPECIMENOrdering Facility: [facility] Address: [address] [place] [address] Performed By: #### 2 4323-8 ####[facility] LABCLIA [id number] [address] [place] Urea nitrogen [Mass/Vol] 17 mg/dL Normal 9-24 [facility] Comment on above: Order Comment: Speci men Type: BLOOD SPECIMENOrdering Facility: [facility] Address: [address] [place] [address] Performed By: #### 2 4323-8 ####[facility] LABCLIA [id number] [address] [place] CNOVon 03-31-2024 CNOV Office Visit (JADEN ) ALBIN TODD ([id number]) 1960 M Date Time Provider Department 03/31/24 8:30 AM MAYTE AHN During your visit today, we recorded the following information about you: Pulse Blood pressure Weight Height 86/minute 146/88 96.6 kg 1.626 m Mayte Ahn MD 03/31/2024 9:15 AM Signed [facility] [place] [facility] Department of Cardiovascular Medicine SECTION OF INTERVENTIONAL CARDIOLOGY OUTPATIENT VISIT DATE March 31, 2024 OUTPATIENT VISIT TYPE Followup PRIMARY CARE PHYSICIAN: Beverley Owens NP [address] [place] [address] CHIEF COMPLAINT: Followup HISTORY OF PRESENT ILLNESS: Mr. Todd is a 63 year old male with a history of hypertension, hypercholesterolemia, and diabetes mellitus, presenting for evaluation following a recent hospitalization for dyspnea and an abnormal stress. Patient is a 63-year-old male with a history of abnromal stress hypertension, and hyperlipidemia, presenting for follow-up. He reports no dyspnea, chest discomfort, palpitations, or syncope during daily activities such as walking around the house, climbing stairs, grocery shopping, or performing housework. He does experience occasional dizziness when rising suddenly from a supine position, which he attributes to his medications. He denies any bruising or bleeding. He has not been hospitalized since his last visit. He is seeking clearance to resume exercise, specifically using the treadmill at his gym. He has not yet started this activity and is currently only walking around his house. He had a CT scan performed this morning, but the results are not yet available. We review the recent lab results which showed elevated calcium, bilirubin, and alkaline phosphatase levels, with normal ALT and AST. His Lp(a) level was 120 mg/dL, and his LDL was not at the target level. I adivse he discuss with PCP regarding BR, calcium and alkaline phosphatase He has a history of using smokeless tobacco and is interested in using nicotine patches to quit. He consumes alcohol rarely. PAST MEDICAL HISTORY Diagnosis Date Abnormal stress test Cardiomegaly Noted on CXR with EF on echo at the lower limits of normal Diabetes mellitus (HCC) HLD (hyperlipidemia) HTN (hypertension) Skin cancer History reviewed. No pertinent surgical history. SOCIAL HISTORY Social History Tobacco Use Smoking status: Never Smokeless tobacco: Current Types: Snuff Vaping Use Vaping status: Never Used Substance Use Topics Alcohol use: Yes Comment: rare Drug use: Not Currently FAMILY HISTORY Problem Relation Age of Onset Coronary Artery Disease Mother 75 stents Heart Attack Mother 75 Hypertension Mother Stroke Mother Cancer Father No Known Problems Brother No Known Problems Sister ALLERGIES: ALLERGIES Allergen Reactions Ozempic [Semaglutid* Other: See Comments dizziness Spironolactone Other: See Comments Breast tenderness MEDICATIONS: Current Outpatient Medications Medication Sig amLODIPine (NORVASC) 5 mg tablet Take 5 mg by mouth once daily. aspirin, enteric coated (ASPIRIN, ENTERIC COATED) 81 mg EC tablet Take 81 mg by mouth once daily. atorvastatin (LIPITOR) 20 mg tablet Take 20 mg by mouth once daily. carvedilol (COREG) 25 mg tablet Take 25 mg by mouth two times a day with meals. eplerenone (INSPRA) 50 mg tablet Take 50 mg by mouth two times a day. isosorbide mononitrate ER (IMDUR) 60 mg 24 hr tablet Take 60 mg by mouth once daily. losartan (COZAAR) 100 mg tablet Take 100 mg by mouth once daily. MOUNJARO 2.5 mg/0.5 mL pen injector Inject 5 mg subcutaneously one time a week. nitroglycerin sublingual (NITROQUICK) 0.4 mg SL tablet Dissolve 0.4 mg under the tongue every 5 minutes as needed. nitroglycerin sublingual (NITROQUICK) 0.3 mg SL tablet Dissolve 1 tablet under the tongue one time only for 1 dose. To be administered in Radiology for CTA exam metoprolol tartrate, short acting, (LOPRESSOR) 50 mg tablet Take one 50 mg tablet the evening prior to the CTA examination, take another 50 mg tablet the morning of the CTA examination. No current facility-administered medications for this visit. REVIEW OF SYSTEMS: [facility] PHYSICAL EXAMINATION: 03/31/24 0848 BP: 146/88 BP Site: Right Arm BP Position: Sitting BP Cuff Size: Large Adult Pulse: 86 Weight: 96.6 kg (213 lb) Height: 162.6 cm (5' 4 ) Body mass index is 36.56 kg/m?. General: Well appearing, in no acute distress, speaking in complete sentences.-but overweight Head/Eyes: Grossly normal Lungs: Clear to auscultation and no rales with good effort Heart: Regular rhythm,S1, S2 normal, no S3, no S4, no rub and no murmur. Abdomen: Soft, nontender, bowel sounds normal, no palpabl (more content not included)... Normal [facility] CREATININE, BLOOD (POC)on Creatinine [Mass/Vol] 1.2 mg/dL 0.7 - 1.4 mg/dL [facility] eGFR (POCT) mL/min/1.73 m2 [facility] Location:Radiology [facility], [address] [place] [address], [address] [facility] POINT OF CARE [facility] CTA CORONARY W IVCONon 03-31 CTA CORONARY W IVCON * * *Final Report* * * DATE OF EXAM: Mar 31 2024 8:42AM J 0470 - CTA CORONARY W IVCON / PROCEDURE REASON: Abnormal stress test * * * * Physician Interpretation * * * * CTA CORONARY ARTERIES Direct Image Comparison: None HISTORY: 63 years old Male patient with history of hypertension, hyperlipidemia, diabetes, with positive stress test. Evaluation for diagnostic clarification and further treatment options.. There is request to define coronary anatomy. TECHNIQUE: SCANNER: Multi-detector scanner PROTOCOL: ECG-synchronized image acquisition of the heart with sub-millimeter slice acquisition following the intravenous administration of contrast material Scan Range: truman to the base of the heart CT Dose-Length Product (DLP): 660 mGy*cm CT Dose Reduction Employed: Automated exposure control(AEC) and iterative recon CONTRAST: IV administration of 80 ml Omnipaque 350 Premedication with mg i.v. lopressor and 0.3 mg sublingual nitroglycerin Scan acquisition: uncomplicated Macro Version: [id number] For optimization of anatomic evaluation, advanced 3-D off-line postprocessing was performed on a dedicated workstation by the interpreting physician. Additional lung CAD. Cheema images reconstructed, saved, and available in [employer] 'Get Images'. STUDY LIMITATIONS: None. RESULT: LINES, TUBES and DEVICES: None limited CHEST: visualized Chest wall anatomy: unremarkable. visualized LUNGS: Small calcified lung nodules. MEDIASTINUM: unremarkable. PERICARDIUM: unremarkable CENTRAL PULMONARY ARTERY: normal dimensions. Assessment is limited due to limited contrast enhancement. CARDIAC CHAMBERS: LEFT VENTRICLE: normal size with normal systolic function; RIGHT VENTRICLE: normal size and normal function on qualitative assessment. Left Atrium: borderline dilation. JENNIFER: normal. Right Atrium: normal size CENTRAL VENOUS and PULMONARY VENOUS RETURN: normal. Coronary Sinus: normal size MITRAL VALVE: assessment is limited in the current study - no leaflet calcification. No annular calcification TRICUSPID and PULMONIC VALVE: assessment is limited, No leaflet calcification. AORTIC VALVE: appears trileaflet. Mild leaflet calcification. visualized AORTA: Pathology: No aortic pathology in limited visualized segments of the aorta, Intervention: None Complications: n/a Aortic Size: Normal size visualized segments of the thoracic aorta STJ: maintained Wall Changes: scattered mild partially calcified wall changes. AORTIC DIMENSIONS: AORTIC ROOT: 3.3 cm measured [id number] mid ASCENDING THORACIC AORTA: 3.0 cm mid DESCENDING THORACIC AORTA: 2.1 cm CORONARY ANATOMY: normal origin of the coronary arteries. LEFT MAIN: Coronary Artery Normal sized vessel, which bifurcates into LAD and LCX. LM Stenosis and Plaque: Moderate amount of plaque. Minimal luminal diameter stenosis (1-24%) or plaque without stenosis. LAD: (Left Anterior Descending Coronary Artery) Normal size vessel, which wraps around the apex. Gives rise to 2 diagonal branches and small septal branches. LAD Stenosis and Plaque: Severe amount of plaque. Severe luminal stenosis (70-99%). LCX: (Left Circumflex Coronary Artery) Normal size vessel, which is co-dominant. Gives rise to 3 obtuse marginal branches. LCX Stenosis and Plaque: Severe amount of plaque. Severe luminal stenosis (70-99%). RCA (RR 40%): (Right Coronary Artery) Normal size vessel, which is co-dominant.. Gives rise to a conus branch, SA rishabh branch. Does not opacify/opacifies minimally distal to proximal segment RCA Stenosis and Plaque best described as: Severe amount of plaque. Severe luminal stenosis (70-99%). limited upper ABDOMEN: unremarkable BONES and SOFT TISSUES: degenerative changes of the thoracic spine. Universal Grinder Operator (topogram) images: No additional findings. IMPRESSION: Calcium blooming precludes optimal assessment of coronary arteries CORONARY ANATOMY: normal origin of the coronary arteries. Severe luminal stenosis in the RCA, LCX, and LAD. - CAD-RAD 4b: Severe Left Main luminal stenosis (>50%) or severe 3-vessel luminal stenosis (>70%). Severe obstructive disease. - Overall Plaque Madison: P3: severe amount of plaque Barrel Loader And Cleaner: JEANNIE Transcribe Date/Time: Mar 31 2024 8:52A Dictated by : JERMAIN PLEITEZ MD This examination was interpreted and the report reviewed and electronically signed by: RAHEEM VILLASEÑOR MD on Mar 31 2024 10:36AM EST [id number] Normal [facility] CTA Heart and Coronary arter ies W contrast Tyesha 03-31-2024 IMPRESSION: Calcium blooming precludes optimal assessment of coronary arteries CORONARY ANATOMY: normal origin of the coronary arteries. Severe luminal stenosis in the RCA, LCX, and LAD. - CAD-RAD 4b: Severe Left Main luminal stenosis (>50%) or severe 3-vessel luminal stenosis (>70%). Severe obstructive disease. - Overall Plaque Madison: P3: severe amount of plaque Barrel Loader And Cleaner: JEANNIE Transcribe Date/Time: Mar 31 2024 8:52A Dictated by : JERMAIN PLEITEZ MD This examination was interpreted and the report reviewed and electronically signed by: RAHEEM VILLASEÑOR MD on Mar 31 2024 10:36AM [facility] DIVISION OF RADIOLOGY * * *Final Report* * * DATE OF EXAM: Mar 31 2024 8:42AM JQC 0470 - CTA CORONARY W IVCON / PROCEDURE REASON: Abnormal stress test * * * * Physician Interpretation * * * * CTA CORONARY ARTERIES Direct Image Comparison: None HISTORY: 63 years old Male patient with history of hypertension, hyperlipidemia, diabetes, with positive stress test. Evaluation for diagnostic clarification and further treatment options.. There is request to define coronary anatomy. TECHNIQUE: SCANNER: Multi-detector scanner PROTOCOL: ECG-synchronized image acquisition of the heart with sub-millimeter slice acquisition following the intravenous administration of contrast material Scan Range: truman to the base of the heart CT Dose-Length Product (DLP): 660 mGy*cm CT Dose Reduction Employed: Automated exposure control(AEC) and iterative recon CONTRAST: IV administration of 80 ml Omnipaque 350 Premedication with mg i.v. lopressor and 0.3 mg sublingual nitroglycerin Scan acquisition: uncomplicated Macro Version: [id number] For optimization of anatomic evaluation, advanced 3-D off-line postprocessing was performed on a dedicated workstation by the interpreting physician. Additional lung CAD. Cheema images reconstructed, saved, and available in [employer] 'Get Images'. STUDY LIMITATIONS: None. RESULT: LINES, TUBES and DEVICES: None limited CHEST: visualized Chest wall anatomy: unremarkable. visualized LUNGS: Small calcified lung nodules. MEDIASTINUM: unremarkable. PERICARDIUM: unremarkable CENTRAL PULMONARY ARTERY: normal dimensions. Assessment is limited due to limited contrast enhancement. CARDIAC CHAMBERS: LEFT VENTRICLE: normal size with normal systolic function; RIGHT VENTRICLE: normal size and normal function on qualitative assessment. Left Atrium: borderline dilation. JENNIFER: normal. Right Atrium: normal size CENTRAL VENOUS and PULMONARY VENOUS RETURN: normal. Coronary Sinus: normal size MITRAL VALVE: assessment is limited in the current study - no leaflet calcification. No annular calcification TRICUSPID and PULMONIC VALVE: assessment is limited, No leaflet calcification. AORTIC VALVE: appears trileaflet. Mild leaflet calcification. visualized AORTA: Pathology: No aortic pathology in limited visualized segments of the aorta, Intervention: None Complications: n/a Aortic Size: Normal size visualized segments of the thoracic aorta STJ: maintained Wall Changes: scattered mild partially calcified wall changes. AORTIC DIMENSIONS: AORTIC ROOT: 3.3 cm measured [id number] mid ASCENDING THORACIC AORTA: 3.0 cm mid DESCENDING THORACIC AORTA: 2.1 cm CORONARY ANATOMY: normal origin of the coronary arteries. LEFT MAIN: Coronary Artery Normal sized vessel, which bifurcates into LAD and LCX. LM Stenosis and Plaque: Moderate amount of plaque. Minimal luminal diameter stenosis (1-24%) or plaque without stenosis. LAD: (Left Anterior Descending Coronary Artery) Normal size vessel, which wraps around the apex. Gives rise to 2 diagonal branches and small septal branches. LAD Stenosis and Plaque: Severe amount of plaque. Severe luminal stenosis (70-99%). LCX: (Left Circumflex Coronary Artery) Normal size vessel, which is co-dominant. Gives rise to 3 obtuse marginal branches. LCX Stenosis and Plaque: Severe amount of plaque. Severe luminal stenosis (70-99%). RCA (RR 40%): (Right Coronary Artery) Normal size vessel, which is co-dominant.. Gives rise to a conus branch, SA rishabh branch. Does not opacify/opacifies minimally distal to proximal segment RCA Stenosis and Plaque best described as: Severe amount of plaque. Severe luminal stenosis (70-99%). limited upper ABDOMEN: unremarkable BONES and SOFT TISSUES: degenerative changes of the thoracic spine. Universal Grinder Operator (topogram) images: No additional findings. DIVISION OF RADIOLOGY Provider, [facility] - 03/31/2024 * * *Final Report* * * DATE OF EXAM: Mar 31 2024 8:42AM JQC 0470 - CTA CORONARY W IVCON / PROCEDURE REASON: Abnormal stress test * * * * Physician Interpretation * * * * CTA CORONARY ARTERIES Direct Image Comparison: None HISTORY: 63 years old Male patient with history of hypertension, hyperlipidemia, diabetes, with positive stress test. Evaluation for diagnostic clarification and further treatment options.. There is request to define coronary anatomy. TECHNIQUE: SCANNER: Multi-detector scanner PROTOCOL: ECG-synchronized image acquisition of the heart with sub-millimeter slice acquisition following the intravenous administration of contrast material Scan Range: truman to the base of the heart CT Dose-Length Product (DLP): 660 mGy*cm CT Dose Reduction Employed: Automated exposure control(AEC) and iterative recon CONTRAST: IV administration of 80 ml Omnipaque 350 Premedication with mg i.v. lopressor and 0.3 mg sublingual nitroglycerin Scan acquisition: uncomplicated Macro Version: [id number] For optimization of anatomic evaluation, advanced 3-D off-line postprocessing was performed on a dedicated workstation by the interpreting physician. Additional lung CAD. Cheema images reconstructed, saved, and available in [employer] 'Get Images'. STUDY LIMITATIONS: None. RESULT: LINES, TUBES and DEVICES: None limited CHEST: visualized Chest wall anatomy: unremarkable. visualized LUNGS: Small calcified lung nodules. MEDIASTINUM: unremarkable. PERICARDIUM: unremarkable CENTRAL PULMONARY ARTERY: normal dimensions. Assessment is limited due to limited contrast enhancement. CARDIAC CHAMBERS: LEFT VENTRICLE: normal size with normal systolic function; RIGHT VENTRICLE: normal size and normal function on qualitative assessment. Left Atrium: borderline dilation. JENNIFER: normal. Right Atrium: normal size CENTRAL VENOUS and PULMONARY VENOUS RETURN: normal. Coronary Sinus: normal size MITRAL VALVE: assessment is limited in the current study - no leaflet calcification. No annular calcification TRICUSPID and PULMONIC VALVE: assessment is limited, No leaflet calcification. AORTIC VALVE: appears trileaflet. Mild leaflet calcification. visualized AORTA: Pathology: No aortic pathology in limited visualized segments of the aorta, Intervention: None Complications: n/a Aortic Size: Normal size visualized segments of the thoracic aorta STJ: maintained Wall Changes: scattered mild partially calcified wall changes. AORTIC DIMENSIONS: AORTIC ROOT: 3.3 cm measured [id number] mid ASCENDING THORACIC AORTA: 3.0 cm mid DESCENDING THORACIC AORTA: 2.1 cm CORONARY ANATOMY: normal origin of the coronary arteries. LEFT MAIN: Coronary Artery Normal sized vessel, which bifurcates into LAD and LCX. LM Stenosis and Plaque: Moderate amount of plaque. Minimal luminal diameter stenosis (1-24%) or plaque without stenosis. LAD: (Left Anterior Descending Coronary Artery) Normal size vessel, which wraps around the apex. Gives rise to 2 diagonal branches and small septal branches. LAD Stenosis and Plaque: Severe amount of plaque. Severe luminal stenosis (70-99%). LCX: (Left Circumflex Coronary Artery) Normal size vessel, which is co-dominant. Gives rise to 3 obtuse marginal branches. LCX Stenosis and Plaque: Severe amount of plaque. Severe luminal stenosis (70-99%). RCA (RR 40%): (Right Coronary Artery) Normal size vessel, which is co-dominant.. Gives rise to a conus branch, SA rishabh branch. Does not opacify/opacifies minimally distal to proximal segment RCA Stenosis and Plaque best described as: Severe amount of plaque. Severe luminal stenosis (70-99%). limited upper ABDOMEN: unremarkable BONES and SOFT TISSUES: degenerative changes of the thoracic spine. Universal Grinder Operator (topogram) images: No additional findings. IMPRESSION IMPRESSION: Calcium blooming precludes optimal assessment of coronary arteries CORONARY ANATOMY: normal origin of the coronary arteries. Severe luminal stenosis in the RCA, LCX, and LAD. - CAD-RAD 4b: Severe Left Main luminal stenosis (>50%) or severe 3-vessel luminal stenosis (>70%). Severe obstructive disease. - Overall Plaque [place]: P3: severe amount of plaque Barrel Loader And Cleaner: JEANNIE Transcribe Date/Time: Mar 31 2024 8:52A Dictated by : JERMAIN PLEITEZ MD This examination was interpreted and the report reviewed and electronically signed by: RAHEEM VILLASEÑOR MD on Mar 31 2024 10:36AM EST [facility] Radiology Study observation (narrative) [facility] CTA Heart and Coronary arter ies W contrast IVOrdered By: Ccf Provider on 03-31-2024 [facility] CNOVon 01-29-2024 CNOV Office Visit (CATHMN ) ALBIN TODD ([id number]) 1960 M Date Time Provider Department 01/29/24 10:15 AM MAYTE AHN During your visit today, we recorded the following information about you: Pulse Respiration Blood pressure Weight 79/minute 18/minute 127/75 96.6 kg Height 1.626 m Mayte Ahn MD 01/29/2024 5:38 PM Signed [facility] [place] [facility] Department of Cardiovascular Medicine SECTION OF INTERVENTIONAL CARDIOLOGY OUTPATIENT VISIT DATE 01/29/2024 OUTPATIENT VISIT TYPE NEW PRIMARY CARE PHYSICIAN: Beverley Owens NP [address] [place] [address] REFERRING PHYSICIAN: No referring provider defined for this encounter. CHIEF COMPLAINT: To assume care and for abnormal stress HISTORY OF PRESENT ILLNESS: Mr. Todd is a 63 year old male who presents today to discuss an abnormal stress test Patient is a 63-year-old male with a history of hypertension, hypercholesterolemia, and diabetes mellitus, presenting for evaluation following a recent hospitalization for dyspnea and an abnormal stress. In October, he experienced acute dyspnea for a few hours, prompting an ED visit. During this visit, he was found to have severely elevated blood pressure, reportedly around 230 mmHg systolic. He admits to non-adherence with his antihypertensive medications at that time. He was treated with a diuretic and underwent a chest X-ray and echocardiogram, which revealed borderline left ventricular function. He was observed overnight and discharged the following afternoon. Subsequently, his primary care physician ordered a nuclear stress test, which he completed in two sessions due to concerns about chest wall thickness. The test reportedly suggested a possible inferior wall defect, raising suspicion for coronary artery disease. He denies current dyspnea, chest pain, or discomfort. He reports occasional postprandial indigestion characterized by burping, without associated pain. He notes mild leg swelling after prolonged sitting or standing. He is able to perform activities of daily living without difficulty and engages in regular walking. NURSING INTAKE: The patient is a 63 year old male from [place], [place] here today for cardiovascular evaluation. In October he was having a hard time catching his breath, went to the ER and was admitted for high blood pressure and diuresis. At his follow up his PCP ordered a stress test which was abnormal. He denies chest pain and SOB. He has some lightheaded/dizziness with position changes and some LE swelling in his feet He has a medical history significant for: DM, HTN, CHF He reports the following symptoms lightheadedness, edema. He denies the following symptoms chest pain, SOB, palpitations, syncope, coughing, wheezing He follows a regular diet. He does not exercise. PAST MEDICAL HISTORY Diagnosis Date Abnormal stress test Cardiomegaly Noted on CXR with EF on echo at the lower limits of normal Diabetes mellitus (HCC) HLD (hyperlipidemia) HTN (hypertension) Skin cancer History reviewed. No pertinent surgical history. SOCIAL HISTORY Social History Tobacco Use Smoking status: Never Smokeless tobacco: Current Types: Snuff Vaping Use Vaping status: Never Used Substance Use Topics Alcohol use: Yes Comment: rare Drug use: Not Currently FAMILY HISTORY Problem Relation Age of Onset Coronary Artery Disease Mother 75 stents Heart Attack Mother 75 Hypertension Mother Stroke Mother Cancer Father No Known Problems Brother No Known Problems Sister ALLERGIES: ALLERGIES Allergen Reactions Ozempic [Semaglutid* Other: See Comments dizziness Spironolactone Other: See Comments Breast tenderness MEDICATIONS: Current Outpatient Medications Medication Sig amLODIPine (NORVASC) 5 mg tablet Take 5 mg by mouth once daily. aspirin, enteric coated (ASPIRIN, ENTERIC COATED) 81 mg EC tablet Take 81 mg by mouth once daily. atorvastatin (LIPITOR) 20 mg tablet Take 20 mg by mouth once daily. carvedilol (COREG) 25 mg tablet Take 25 mg by mouth two times a day with meals. eplerenone (INSPRA) 50 mg tablet Take 50 mg by mouth two times a day. isosorbide mononitrate ER (IMDUR) 60 mg 24 hr tablet Take 60 mg by mouth once daily. losartan (COZAAR) 100 mg tablet Take 100 mg by mouth once daily. MOUNJARO 2.5 mg/0.5 mL pen injector Inject 5 mg subcutaneously one time a week. nitroglycerin sublingual (NITROQUICK) 0.4 mg SL tablet Dissolve 0.4 mg under the tongue every 5 minutes as needed. furosemide (LASIX) 20 mg tablet Take 20 mg by mouth as needed. No current facility-administered medications for this visit. REVIEW OF SYSTEMS: Review of Systems Constitutional: Negative for chills, weight gain a (more content not included)... Normal [facility] Comprehensive metabolic 2000 panelon 01-29-2024 Albumin [Mass/Vol] 4.9 g/dL 3.9 - 4.9 g/dL [facility] ALP [Catalytic activity/Vol] 133 U/L High 38 - 113 U/L [facility] ALT [Catalytic activity/Vol] 32 U/L 10 - 54 U/L [facility] Anion gap [Moles/Vol] 14 mmol/L 8 - 15 mmol/L [facility] AST [Catalytic activity/Vol] 23 U/L 14 - 40 U/L [facility] Bilirubin [Mass/Vol] 1.9 mg/dL High 0.2 - 1.3 mg/dL [facility] Calcium [Mass/Vol] 10.7 mg/dL High 8.5 - 10. 2 mg/dL [facility] Chloride [Moles/Vol] 103 mmol/L 98 - 107 mmol/L [facility] CO2 [Moles/Vol] 25 mmol/L 22 - 30 mmol/L [facility] Creatinine [Mass/Vol] 1.19 mg/dL 0.73 - 1.22 mg/dL [facility] GFR/1.73 sq M.predicted among non-blacks MDRD (S/P/Bld) [Vol rate/Area] 69 mL/min/{1.73_m2} - PINF [facility] Comment on above: Estimated Glomerular Filtration Rate (eGFR) is calculated using the 2020 CKD-EPI creatinine equation. This equation utilizes serum creatinine, sex, and age as parameters. The creatinine assay has traceable calibration to isotope dilution-mass spectrometry. Refer to KDIGO guidelines for clinical interpretation. In patients with unstable renal function, e.g. those with acute kidney injury, the eGFR may not accurately reflect actual GFR. Glucose [Mass/Vol] 117 mg/dL High 74 - 99 mg/dL [facility] Comment on above: The [place] Diabete s Association (ADA) provides guidance for cutoff values for fasting glucose and random glucose. The ADA defines fasting as no caloric intake for at least 8 hours. Fasting plasma glucose results between 100 to 125 mg/dL indicate increased risk for diabetes (prediabetes). Fasting plasma glucose results greater than or equal to 126 mg/dL meet the criteria for diagnosis of diabetes. In the absence of unequivocal hyperglycemia, results should be confirmed by repeat testing. In a patient with classic symptoms of hyperglycemia or hyperglycemic crisis, random plasma glucose results greater than or equal to 200 mg/dL meet the criteria for diagnosis of diabetes. Reference: Standards of Medical Care in Diabetes 2016, [place] Diabetes Association. Diabetes Care. 2016.39(Suppl 1). Potassium [Moles/Vol] 4.9 mmol/L 3.7 - 5.1 mmol/L [facility] Protein [Mass/Vol] 6.8 g/dL 6.3 - 8.0 g/dL [facility] Sodium [Moles/Vol] 142 mmol/L 136 - 144 mmol/L [facility] Urea nitrogen [Mass/Vol] 16 mg/dL 9 - 24 mg/dL [facility] Albumin [Mass/Vol] 4.9 g/dL Normal 3.9-4.9 [facility] Comment on above: Order Comment: Valencia lau Type: BLOOD SPECIMENOrdering Facility: [facility] Address: [address] [place] [address] Performed By: #### 3 3762-6, 58986-2, 37113-6 ####[facility] LABCLIA [id number] [place] [address] [place] ALP [Catalytic activity/Vol] 133 U/L High 38-113 [facility] Comment on above: Order Comment: Valencia lau Type: BLOOD SPECIMENOrdering Facility: [facility] Address: [address] [place] [address] Performed By: #### 3 3762-6, 83477-2, 75456-9 ####[facility] LABCLIA [id number] [place] [address] [place] ALT [Catalytic activity/Vol] 32 U/L Normal 10-54 [facility] Comment on above: Order Comment: Valencia lau Type: BLOOD SPECIMENOrdering Facility: [facility] Address: [address] [place] [address] Performed By: #### 3 3762-6, 48164-4, 66480-2 ####[facility] LABCLIA [id number] [id number], [place] [address] [place] Anion gap [Moles/Vol] 14 mmol/L Normal 8-15 [facility] Comment on above: Order Comment: Speci men Type: BLOOD SPECIMENOrdering Facility: [facility] Address: [address] [place] [address] Performed By: #### 3 3762-6, 41531-8, 38656-2 ####[facility] LABCLIA [id number] [place] [address] [place] AST [Catalytic activity/Vol] 23 U/L Normal 14-40 [facility] Comment on above: Order Comment: Speci men Type: BLOOD SPECIMENOrdering Facility: [facility] Address: [address] [place] [address] Performed By: #### 3 3762-6, 69704-7, 81893-6 ####[facility] LABCLIA [id number] [place] [address] [place] Bilirubin [Mass/Vol] 1.9 mg/dL High 0.2-1.3 [facility] Comment on above: Order Comment: Speci men Type: BLOOD SPECIMENOrdering Facility: [facility] Address: [address] [place] [address] Performed By: #### 3 3762-6, 63877-7, 72411-9 ####[facility] LABCLIA [id number] [place] [address] [place] Calcium [Mass/Vol] 10.7 mg/dL High 8.5-10.2 [facility] Comment on above: Order Comment: Speci men Type: BLOOD SPECIMENOrdering Facility: [facility] Address: [address] [place] [address] Performed By: #### 3 3762-6, 31914-3, 27582-6 ####[facility] LABCLIA [id number] [place] [id number] [place] Chloride [Moles/Vol] 103 mmol/L Normal 98-107 [facility] Comment on above: Order Comment: Speci men Type: BLOOD SPECIMENOrdering Facility: [facility] Address: [address] [place] [address] Performed By: #### 3 3762-6, 52995-1, 43392-4 ####[facility] LABCLIA [id number] [address] [address] [place] CO2 [Moles/Vol] 25 mmol/L Normal 22-30 [facility] Comment on above: Order Comment: Speci men Type: BLOOD SPECIMENOrdering Facility: [facility] Address: [address] [place] [address] Performed By: #### 3 3762-6, 83063-1, 11677-4 ####[facility] LABCLIA [id number] [place] [address] [place] Creatinine [Mass/Vol] 1.19 mg/dL Normal 0.73-1.22 [facility] Comment on above: Order Comment: Speci men Type: BLOOD SPECIMENOrdering Facility: [facility] Address: [address] [place] [address] Performed By: #### 3 3762-6, 39516-6, 43605-7 ####[facility] LABCLIA [id number] [place] [address] [place] Creatinine and Glomerular filtration rate.predicted panel (S/P/Bld) 69 mL/min/1.73m??? Normal >=60 [facility] Comment on above: Order Comment: Speci men Type: BLOOD SPECIMENOrdering Facility: [facility] Address: [address] [place] [address] Result Comment: Heaven mated Glomerular Filtration Rate (eGFR) is calculated using the 2020 CKD-EPI creatinine equation. This equation utilizes serum creatinine, sex, and age as parameters. The creatinine assay has traceable calibration to isotope dilution-mass spectrometry. Refer to KDIGO guidelines for clinical interpretation. In patients with unstable renal function, e.g. those with acute kidney injury, the eGFR may not accurately reflect actual GFR. Performed By: #### 3 3762-6, 28173-3, 45072-9 ####[facility] LABCLIA [id number] [place] [address] [place] Glucose [Mass/Vol] 117 mg/dL High 74-99 [facility] Comment on above: Order Comment: Speci men Type: BLOOD SPECIMENOrdering Facility: [facility] Address: [address] [place] [address] Result Comment: The [place] Diabetes Association (ADA) provides guidance for cutoff values for fasting glucose and random glucose. The ADA defines fasting as no caloric intake for at least 8 hours. Fasting plasma glucose results between 100 to 125 mg/dL indicate increased risk for diabetes (prediabetes). Fasting plasma glucose results greater than or equal to 126 mg/dL meet the criteria for diagnosis of diabetes. In the absence of unequivocal hyperglycemia, results should be confirmed by repeat testing. In a patient with classic symptoms of hyperglycemia or hyperglycemic crisis, random plasma glucose results greater than or equal to 200 mg/dL meet the criteria for diagnosis of diabetes. Reference: Standards of Medical Care in Diabetes 2016, [place] Diabetes Association. Diabetes Care. 2016.39(Suppl 1). Performed By: #### 3 3762-6, 46950-3, 02718-5 ####[facility] LABCLIA [id number] [place] [address] [place] Potassium [Moles/Vol] 4.9 mmol/L Normal 3.7-5.1 [facility] Comment on above: Order Comment: Speci men Type: BLOOD SPECIMENOrdering Facility: [facility] Address: [address] [place] [address] Performed By: #### 3 3762-6, 77767-1, 76760-8 ####[facility] LABCLIA [id number] [place] [address] [place] Protein [Mass/Vol] 6.8 g/dL Normal 6.3-8.0 [facility] Comment on above: Order Comment: Speci men Type: BLOOD SPECIMENOrdering Facility: [facility] Address: [address] [place] [address] Performed By: #### 3 3762-6, 42325-8, 90245-8 ####[facility] LABIA [id number] [place] [address] [place] Sodium [Moles/Vol] 142 mmol/L Normal 136-144 [facility] Comment on above: Order Comment: Speci men Type: BLOOD SPECIMENOrdering Facility: [facility] Address: [address] [place] [address] Performed By: #### 3 3762-6, 59087-9, 20291-2 ####[facility] LABIA [id number] [place] [address] [place] Urea nitrogen [Mass/Vol] 16 mg/dL Normal 9-24 [facility] Comment on above: Order Comment: Speci men Type: BLOOD SPECIMENOrdering Facility: [facility] Address: [address] [place] [address] Performed By: #### 3 3762-6, 51690-9, 05649-1 ####[facility] LABIA [id number] [place] [address] [place] ECG COMPLETEon 01-29-2024 ECG COMPLETE Ventricular Rate : 8 3 BPM Atrial Rate : 83 BPM P-R Interval : 210 ms QRS Duration : 98 ms Q-T Interval : 364 ms QTC Calculation(Bazett) : 427 ms Calculated P [place] : 44 degrees Calculated R [place] : 4 degrees Calculated T [place] : 44 degrees SINUS RHYTHM WITH 1ST DEGREE AV BLOCK Confirmed by YANETH ARGUETA M.D.UGOPAL (81) on 02/15/2024 9:42:43 AM NAME : ALBIN TODD PID : [id number] : 1960 Gender : Male Race : ORD : [id number] Procedure Date : Jan 29 2024 09:32:15 Edit Date : Feb 15 2024 09:42:49 Diagnosis: SINUS RHYTHM WITH 1ST DEGREE AV BLOCK Confirmed by YANETH ARGUETA M.D.UGOPAL (81) on 02/15/2024 9:42:43 AM Test Reason : Location : 314 : J14 J1-4 Overread By : NICOLE ARGUTEA M.D. Edited By : ELLIE Carrasco,NICOLE Referred By : , Acquired by : BONITA SMITH [facility] LIPOPROTEIN (A)on 01-29-2024 Lipoprotein a [Mass/Vol] 120 mg/dL High NINF - 30 mg/dL [facility] LPa SerPl-mCncon 01-29-2024 Lipoprotein a [Mass/Vol] 120 mg/dL High <30 [facility] Comment on above: Order Comment: Speci men Type: BLOOD SPECIMENOrdering Facility: [facility] Address: [address] [place] [address] Performed By: #### 1 0835-7 ####[facility] LABCLIA [id number] [place] [address] [place] [facility] Lipid 1996 panelon 4 Cholesterol [Mass/Vol] 137 mg/dL NINF - 200 mg/dL [facility] Comment on above: <200 mg/dL, Desirabl e 200-239 mg/dL, Borderline high >239 mg/dL, High Cholesterol in HDL [Mass/Vol] 36 mg/dL Low 39 - PINF mg/dL [facility] Comment on above: 40-59 mg/dL, Accepta ble >59 mg/dL, High: Negative risk factor for coronary heart disease <40 mg/dL, Low: Positive risk factor for coronary heart disease Cholesterol in LDL [Mass/Vol] 79 mg/dL NINF - 100 mg/dL [facility] Comment on above: <100 mg/dL, Optimal 100-129 mg/dL, Near optimal/above optimal 130-159 mg/dL, Borderline high 160-189 mg/dL, High >189 mg/dL, Very high Secondary prevention optimal LDL Cholesterol levels are recommended to be < 70 mg/dL Cholesterol in LDL/Cholesterol in HDL [Mass ratio] 2.19 {ratio} NINF - 2.54 [facility] Comment on above: Reference: 1. National Cholesterol Education Program ATP III Guideline At-A-Glance Quick Desk Reference: National Heart, Lung, and Blood [place]. National Institutes of Health. 2001: NIH Publication No. 01-3305. 2. An International Atherosclerosis Society position paper: global recommendations for the management of dyslipidemia: executive summary, Atherosclerosis. 2014: 232(2):410-413. Cholesterol in VLDL [Mass/Vol] 22 mg/dL NINF - 30 mg/dL [facility] Cholesterol non HDL [Mass/Vol] 101 mg/dL NINF - 130 mg/dL [facility] Comment on above: <130 mg/dL, Optimal 130-159 mg/dL, Near optimal/above optimal 160-189 mg/dL, Borderline high 190-219 mg/dL, High >219 mg/dL, Very high Secondary prevention optimal non HDL Cholesterol levels are recommended to be <100 mg/dL Cholesterol.total/C holesterol in HDL [Mass ratio] 3.81 {ratio} NINF - 5.10 [facility] Fasting Time 5 hrs [facility] Comment on above: pt not told to fast Triglyceride [Mass/Vol] 110 mg/dL NINF - 150 mg/dL [facility] Comment on above: <150 mg/dL, Normal 150-199 mg/dL, Borderline high 200-499 mg/dL, High >499 mg/dL, Very high Cholesterol [Mass/Vol] 137 mg/dL Normal <200 [facility] Comment on above: Order Comment: Speci judi Type: BLOOD SPECIMENOrdering Facility: [facility] Address: [address] [place] [address] Result Comment: <200 mg/dL, Desirable 200-239 mg/dL, Borderline high >239 mg/dL, High Performed By: #### 3 3762-6, 77346-1, 05202-0 ####[facility] LABCLIA [id number] [facility] [id number] [address] [place] Cholesterol in HDL [Mass/Vol] 36 mg/dL Low >39 [facility] Comment on above: Order Comment: Valencia lau Type: BLOOD SPECIMENOrdering Facility: [facility] Address: [address] [place] [address] Result Comment: 40-5 9 mg/dL, Acceptable >59 mg/dL, High: Negative risk factor for coronary heart disease <40 mg/dL, Low: Positive risk factor for coronary heart disease Performed By: #### 3 8202-6, 60326-7, 81726-7 ####[facility] LABCLIA [id number] [place] [address] [place] Cholesterol in LDL [Mass/Vol] 79 mg/dL Normal <100 [facility] Comment on above: Order Comment: Speci men Type: BLOOD SPECIMENOrdering Facility: [facility] Address: [address] [place] [address] Result Comment: <100 mg/dL, Optimal 100-129 mg/dL, Near optimal/above optimal 130-159 mg/dL, Borderline high 160-189 mg/dL, High >189 mg/dL, Very high Secondary prevention optimal LDL Cholesterol levels are recommended to be < 70 mg/dL Performed By: #### 3 3762-6, 14190-8, 80720-6 ####[facility] LABCLIA [id number] [place] [address] [place] Cholesterol in LDL/Cholesterol in HDL [Mass ratio] 2.19 {ratio} Normal <2.54 [facility] Comment on above: Order Comment: Speci men Type: BLOOD SPECIMENOrdering Facility: [facility] Address: [address] [place] [address] Result Comment: Jama faulkner: 1. National Cholesterol Education Program ATP III Guideline At-A-Glance Quick Desk Reference: National Heart, Lung, and Blood [place]. National Institutes of Health. 2001: NIH Publication No. 01-3305. 2. An International Atherosclerosis Society position paper: global recommendations for the management of dyslipidemia: executive summary, Atherosclerosis. 2014: 232(2):410-413. Performed By: #### 3 3762-6, 84684-7, 94384-9 ####[facility] LABCLIA [id number] [place] [address] [place] Cholesterol in VLDL [Mass/Vol] 22 mg/dL Normal <30 [facility] Comment on above: Order Comment: Speci men Type: BLOOD SPECIMENOrdering Facility: [facility] Address: [address] [place] [address] Performed By: #### 3 3762-6, 80891-0, 11138-4 ####[facility] LABCLIA [id number] [place] [address] [place] Cholesterol non HDL [Mass/Vol] 101 mg/dL Normal <130 [facility] Comment on above: Order Comment: Speci men Type: BLOOD SPECIMENOrdering Facility: [facility] Address: [address] [place] [address] Result Comment: <130 mg/dL, Optimal 130-159 mg/dL, Near optimal/above optimal 160-189 mg/dL, Borderline high 190-219 mg/dL, High >219 mg/dL, Very high Secondary prevention optimal non HDL Cholesterol levels are recommended to be <100 mg/dL Performed By: #### 3 3762-6, 62624-3, 18992-2 ####[facility] LABCLIA [id number] [place] [address] [place] Cholesterol.total/C holesterol in HDL [Mass ratio] 3.81 {ratio} Normal <5.10 [facility] Comment on above: Order Comment: Speci men Type: BLOOD SPECIMENOrdering Facility: [facility] Address: [address] [place] [address] Performed By: #### 3 3762-6, , 08102-0 ####[facility] LABCLIA [id number] [place] [address] [place] FASTING TIME 5 hrs Normal [facility] Comment on above: Order Comment: Speci men Type: BLOOD SPECIMENOrdering Facility: [facility] Address: [address] [place] [address] Result Comment: pt n ot told to fast Performed By: #### 3 3762-6, , 85413-4 ####[facility] LABCLIA [id number] [place] [address] [place] Triglyceride [Mass/Vol] 110 mg/dL Normal <150 [facility] Comment on above: Order Comment: Valencia lau Type: BLOOD SPECIMENOrdering Facility: [facility] Address: [address] [place] [address] Result Comment: <150 mg/dL, Normal 150-199 mg/dL, Borderline high 200-499 mg/dL, High >499 mg/dL, Very high Performed By: #### 3 3762-6, 33415-5, 75850-9 ####[facility] LABCLIA [id number] [place] [address] [place] Lipoprotein a [Mass/Vol]on 03-31-2023 Interpretation and review of laboratory results Abnormal [facility] NT PRO BNPon 01-29-2024 Natriuretic peptide.B prohormone N-Terminal [Mass/Vol] pg/mL NINF - 125 pg/mL [facility] NT-proBNP SerPl-mCncon 01-28 Natriuretic peptide.B prohormone N-Terminal [Mass/Vol] <36 Normal <125 [facility] Comment on above: Order Comment: Valencia lau Type: BLOOD SPECIMENOrdering Facility: [facility] Address: [address] [place] [address] Performed By: #### 3 3762-6, 35235-1, 73535-5 ####[facility] LABCLIA [id number] [place] [address] [place] Natriuretic peptide.B prohor denisa N-Terminal [Mass/Vol]on 01-29-2024 Interpretation and review of laboratory results Normal [facility] No Panel Informationon 01-28 Interpretation and review of laboratory results Abnormal [facility] CNPNon 01-28-2024 CNPN Telephone (CATHMN) ALBIN TODD ([id number]) 1960 M Date Time Provider Department 01/28/24 MAYTE AHN During your visit today, we recorded the following information about you: Jose Maria Mack 01/28/2024 10:09 AM Signed Pt has two stress tests done 12/12/23 and ; images being pushed. Reports are in Care Everywhere. Allergies As of Date: 01/28/2024 (Not on File) Date Reviewed: Never Reviewed Reason for Visit: Results [95] Problem List As Of Date: 01/28/2024 (None) Encounter Status:Closed by JOSE MARIA MACK on 01/28/24 Normal [facility] CNCOon 01-25-2024 CNCO Letter Text Normal [facility] CNPNon 01-25-2024 CNPN Telephone (CARDMN) ALBIN TODD ([id number]) 1960 M Date Time Provider Department 01/25/24 ROSE CHICAS During your visit today, we recorded the following information about you: Fay Johnson 01/25/2024 9:47 AM Signed Received outside records from [facility]. Uploaded into scanned documents and EP IMASTE drive. Patient registered and needs Interventional Cardiology appointment for Diagnoses: Abnormal stress test High coronary artery calcium score Atherosclerosis of both carotid arteries -Fay IC 955 Allergies As of Date: 01/25/2024 (Not on File) Date Reviewed: Never Reviewed Problem List As Of Date: 01/25/2024 (None) Encounter Status:Closed by FAY JOHNSON on 01/25/24 [facility] - Hematology and Cell countson 12-17-2023 HbA1c (Bld) [Mass fraction] 6.9 % [facility] No Panel Informationon 12-16 [facility] NM xavier perf SPECT rest stron 12-14-2023 NM xavier perf SPECT rest [place] [address] Nuclear Medicine Report Signed Patient: Albin Todd MR#: [id number] 91 : 1960 Acct:[id number] Age/Sex: 62 / M ADM Date: 12/12/23 Loc: Room: Type: [facility] Attending Dr: Tiffanie Wright DO Copies to: MD Tiffanie Carpio DO Ordering Provider: Tiffanie Wright DO Date of Service: 12/12/23 NM/NM xavier perf SPECT rest str: Left Ventricular Failure NUCLEAR MYOCARDIAL PERFUSION DATE OF PROCEDURE: 12/14/2023 ATTENDING GREENHOUSE OR NURSERY TRANSPLANTER: Dr. Bairon Villarreal REQUESTING PHYSICIAN: Dr. Wright [...] were reviewed as well as the computer quantification.? Extensive gut uptake is noted which may reduce accuracy. There is a mild intensity, moderate size, reversible defect in the basal inferoseptal wall. This is suggestive of ischemia. On the gated portion of the study, the overall ejection fraction calculated at 52%.?QGS consistent with inferoseptal hypokinesis. TID score 0.94 is within normal limits. NM/NM xavier perf SPECT rest str IMPRESSION: 1. Abnormal SPECT Sestamibi myocardial perfusion study. There is a mild intensity, moderate size, reversible defect in the basal inferoseptal wall. This is suggestive of ischemia. 2. Inferoseptal hypokinesis. 3. Normal left ventricular systolic function. LVEF is 52%.? Impression dictated by: Bairon Villarreal M.D.12/14/2023 4:59 PM Dictation Location: [place] [address] Transcribed By: JANY 12/14/231658 Dictated By: Bairon Villarreal MD 12/14/231650 Signed By: 12/14/231658 Normal [facility] TB MICROALB CREAT RATIO RAN Joselyn 11-24-2023 CREATININE URINE RANDOM 97.22 mg/dL 20.00 - 300.00 mg/dL [facility] MICROALBUM CREATININE RATIO UR 16.4 mg/g 0.0 - 29.9 mg/g [facility] Comment on above: NO MICROALBUMINURIA 0-29 MG/G CLINICAL MICROALBUMINURIA 30-300 MG/G MACROALBUMINURIA >300 MG/G MICROALBUMIN URINE RANDOM 1.6 mg/dL NINF - 30.0 mg/dL [facility] CLINISYNC [facility] Basic Metabolic Panelon 03 Anion gap [Moles/Vol] 19 mmol/L Normal 12-20 [facility] Comment on above: Result Comment: Effe ctive 02/17/2019 reference range changed. Performed By: #### B MP #### [facility] [address] [place], [place] [id number] Calcium [Mass/Vol] 9.9 mg/dL Normal 8.6-10.2 [facility] Comment on above: Performed By: #### B MP #### [facility] [address] [place], [place] [id number] Chloride [Moles/Vol] 99 mmol/L Normal 98-107 [facility] Comment on above: Performed By: #### B MP #### [facility] [address] [place], [place] [id number] CO2 [Moles/Vol] 25 mmol/L Normal 20-31 [facility] Comment on above: Performed By: #### B MP #### [facility] [address] [place], [place] [id number] Creatinine [Mass/Vol] 1.4 mg/dL Normal 0.7-1.4 [facility] Comment on above: Performed By: #### B MP #### [facility] [address] [place], [place] [id number] eGFRAA 64 mL/min/1.73m2 Normal >60 [facility] Specialist Comment on above: Performed By: #### B MP #### [facility] [address] [place], [place] [id number] eGFRNAA 53 mL/min/1.73m2 Low >60 [facility] Specialist Comment on above: Performed By: #### B MP #### [facility] [address] [place], [place] [id number] Glucose [Mass/Vol] 120 mg/dL High 65-[address] [facility] Specialist Comment on above: Result Comment: For FASTING Glucose --- ADA reference ranges: Normal 65-99 mg/dl Prediabetes 100-125 Diabetes >/= 126 Performed By: #### B MP #### [facility] [address] [place], [place] [id number] Potassium [Moles/Vol] 4.4 mmol/L Normal 3.5-5.5 [facility] Comment on above: Performed By: #### B MP #### [facility] [address] [place], [place] [id number] Sodium [Moles/Vol] 139 mmol/L Normal 135-146 [facility] Comment on above: Performed By: #### B MP #### [facility] [address] [place], [place] [id number] Urea nitrogen [Mass/Vol] 28 mg/dL High 7-25 [facility] Special[facility] Comment on above: Performed By: #### B MP #### [facility] [address] [place], [place] [id number] Hemoglobin A1Con 04-20-2021 EAG 145.59 Normal [facility] Specialist Comment on above: Performed By: #### A 1C #### [facility] [address] [place], [place] [id number] HbA1c (Bld) [Mass fraction] 6.7 % High 4.0-6.0 [facility] Special[facility] Comment on above: Performed By: #### A 1C #### [facility] [address] [place], [place] [id number] PROF CHEM 8 (BAS METB)on Anion gap [Moles/Vol] 10.4 mmol/L Normal [facility] Comment on above: Performed By: #### B MP #### [facility] [address] [place] [address] [address] Angela Abraham Calcium [Mass/Vol] 10.0 mg/dL Normal 8.4-10.2 [facility] Comment on above: Performed By: #### B MP #### [facility] [address] [place] [address] Dr. Angela Abraham Chloride [Moles/Vol] 99 mmol/L Normal 98-107 [facility] Comment on above: Performed By: #### B MP #### [facility] [address] [place] [address] [address] Angela Abraham CO2 [Moles/Vol] 31.9 mmol/L Critically high 22.0-30.0 [facility] Comment on above: Performed By: #### B MP #### [facility] [address] [place] [address] Dr. Angela Abraham Creatinine [Mass/Vol] 1.31 mg/dL Critically high 0.66-1.25 [facility] Comment on above: Performed By: #### B MP #### [facility] [address] [place] [address] Dr. Angela Abraham EGFR-AF PERUVIAN >60 Normal >=60 [facility] Comment on above: Performed By: #### B MP #### [facility] [address] [place] [address] Dr. Angela Abraham EGFR-NON AF PERUVIAN 56 mL/min/1.73m2 Critically low >=60 [facility] Comment on above: Performed By: #### B MP #### [facility] [address] [place] [address] [address] Angela Abraham Glucose [Mass/Vol] 112 mg/dL Critically high 74-106 [facility] Comment on above: Performed By: #### B MP #### [facility] [address] [place] [address] Dr. Angela Abraham Potassium [Moles/Vol] 4.3 mmol/L Normal 3.4-5.0 [facility] Comment on above: Performed By: #### B MP #### [facility] [address] [place] [address] Dr. Angela Abraham Sodium [Moles/Vol] 137 mmol/L Normal 137-145 [facility] Comment on above: Performed By: #### B MP #### [facility] [address] [place] [address] [address] Angela Abraham Urea nitrogen [Mass/Vol] 28.0 mg/dL Critically high 9.0-20.0 [facility] Comment on above: Performed By: #### B MP #### [facility] [address] [id number] Angela Abraham Urea nitrogen/Creatinine [Mass ratio] 21.4 mg/mg Normal [facility] Comment on above: Performed By: #### B MP #### [facility] [address] [place] [address] Dr. Angela Abraham Q - PROTEIN ELECTROPHORESIS, WITH TOTAL PROTEIN AND RFX TO IFon 01-14-2021 Albumin [Mass/Vol] 4.3 g/dL Normal 3.8-4.8 Adriana [facility] Supervisor [employer] Comment on above: Order Comment: [facility] Testing performed at: [employer] [facility], [address] [facility], [address] [place] [address], [phone], [employer] Director: Remington Montiel MD [facility] Collection Date/Time: [facility] Results Received Date/Time: [facility] Reported Date/Time: Performed By: #### 1 0269 #### [facility] [address] [place] [address] ALPHA 1 GLOBULIN 0.3 g/dL Normal 0.2-0.3 [facility] Supervisor [employer] Comment on above: Order Comment: [facility] Testing performed at: [employer] [facility], [address] [facility], [address] [place] [address], [phone], [employer] Director: Remington Montiel MD [facility] Collection Date/Time: [facility] Results Received Date/Time: [facility] Reported Date/Time: Performed By: #### 1 0269 #### [facility] [address] [place] [address] ALPHA 2 GLOBULIN 1.0 g/dL High 0.5-0.9 [facility] Supervisor [employer] Comment on above: Order Comment: [facility] Testing performed at: [employer], [employer] [facility], [address] [place] [address], [address] [place] [address], [address] [place] [address], [employer] Director: Remington Montiel MD [facility] Collection Date/Time: [facility] Results Received Date/Time: [facility] Reported Date/Time: Performed By: #### 1 0269 #### [facility] [address] [place] [address] BETA 1 GLOBULIN 0.5 g/dL Normal 0.4-0.6 [facility] Supervisor [employer] Comment on above: Order Comment: [facility] Testing performed at: [employer], [employer] [facility], [address] [place] [address], [address] [place] [address], [address] [place] [address], [employer] Director: Remington Montiel MD [facility] Collection Date/Time: [facility] Results Received Date/Time: [facility] Reported Date/Time: Performed By: #### 1 0269 #### [facility] [address] [place] [facility] [place] [address] BETA 2 GLOBULIN 0.4 g/dL Normal 0.2-0.5 [facility] Supervisor [employer] Comment on above: Order Comment: [facility] Testing performed at: [facility], [employer] [facility], [address] [place] [address], [address] [place] [address], [address] [place] [address], [employer] Director: Remington Montiel MD [facility] Collection Date/Time: [facility] Results Received Date/Time: [facility] Reported Date/Time: Performed By: #### 1 0269 #### [facility] [address] [place] [facility] [place] [address] GAMMA GLOBULIN 1.0 g/dL Normal 0.8-1.7 [facility] Supervisor [employer] Comment on above: Order Comment: [facility] Testing performed at: [employer], [employer] [facility], [address] [place] [address], [address] [place] [address], [address] [place] [address], [employer] Director: Remington Montiel MD [facility] Collection Date/Time: [facility] Results Received Date/Time: [facility] Reported Date/Time: Performed By: #### 1 0269 #### [facility] [address] [place] [address] INTERPRETATION Isolated elevation o f alpha-2 globulins. Suggestive of acute inflammation. Normal [facility] Supervisor [employer] Comment on above: Order Comment: [facility] Testing performed at: [employer], [employer] [facility], [address] [facility], [address] [place] [address], [address] [place] [address], [employer] Director: Remington Montiel MD [facility] Date/Time: [facility] Results Received Date/Time: [facility] Reported Date/Time: Performed By: #### 1 0269 #### [facility] [address] [place] [address] Protein [Mass/Vol] 7.5 g/dL Normal 6.1-8.[address] [facility] Specialist Comment on above: Order Comment: [facility] performed at: [employer], [employer] [facility], [address] , [address] [place] [address], [address] [place] [address], [employer] Director: Remington Montiel MD [facility] Collection Date/Time: [facility] Results Received Date/Time: [facility] Reported Date/Time: Performed By: #### 1 0269 #### [facility] [address] [place] [address] OVER READ - NCon 02-07-20 17 OVER READ - NC DATE OF EXAM: Feb 06 2017 12:25PMCLINICAL HISTORY/ Name: ALBIN TODDSTUDShawna: OVER READ - NC; 02/06/2017 12:25 pmINDICATION:score. Hypertension and hypercholesterolemia. Smoking history. Screening.COMPARISON:N one. JENNI CLINICIAN:TIFFANIE VALE:Hipolito hendrix unenhanced axial images were [...] findings.This interpretation, provided by the radiologists of [facility], excludes evaluation of the cardiovascular system, which iscovered in a separate report issued by the ordering cardiologists. The radiologists of [facility] have no responsibilityfor evaluating the structures of the cardiovascular system. Normal [facility] Vital Signs Date Time Vital Sign Value Performing Clinician Facility 08-12-2024 09:58-0400 Body height 165.1 cm Tiffanie Wright DO Work Phone: [facility] 08-12-2024 09:58-0400 Body mass index (BMI) [Ratio] 33.28 kg/m2 Tiffanie WhitesideNewsiT Work Phone: [facility] 08-12-2024 09:58-0400 Body weight 90.72 kg Tiffanie WhitesideNewsiT Work Phone: [facility] 08-12-2024 09:58-0400 Diastolic blood pressure 64 mm[Hg] Tiffanie WhitesideNewsiT Work Phone: [facility] 08-12-2024 09:58-0400 Heart rate 76 /min Tiffanie WhitesideNewsiT Work Phone: [facility] 08-12-2024 09:58-0400 SaO2% (BldA) [Mass fraction] 98 % Tiffanie WhitesideNewsiT Work Phone: [facility] 08-12-2024 09:58-0400 Systolic blood pressure 116 mm[Hg] Tiffanie WhitesideNewsiT Work Phone: [facility] 05-21-2024 08:12-0400 Body height 162.6 cm Mayte Ahn MD Work Phone: [facility] 05-21-2024 08:12-0400 Body mass index (BMI) [Ratio] 36.49 kg/m2 Mayte Ahn MD Work Phone: [facility] 05-21-2024 08:12-0400 Body weight 96.44 kg Mayte Ahn MD Work Phone: [facility] 05-21-2024 08:12-0400 Diastolic blood pressure 73 mm[Hg] Mayte Ahn MD Work Phone: [facility] 05-21-2024 08:12-0400 Heart rate 82 /min Mayte Ahn MD Work Phone: [facility] 05-21-2024 08:12-0400 Respiratory rate 15 /min Mayte Ahn MD Work Phone: [facility] 05-21-2024 08:12-0400 SaO2% (BldA) [Mass fraction] 97 % Mayte Ahn MD Work Phone: [facility] 05-21-2024 08:12-0400 Systolic blood pressure 146 mm[Hg] Mayte Ahn MD Work Phone: [facility] 03-31-2024 08:48-0500 Body height 162.6 cm Mayte Ahn MD Work Phone: [facility] 03-31-2024 08:48-0500 Body mass index (BMI) [Ratio] 36.56 kg/m2 Mayte Ahn MD Work Phone: [facility] 03-31-2024 08:48-0500 Body weight 96.62 kg Mayte Ahn MD Work Phone: [facility] 03-31-2024 08:48-0500 Diastolic blood pressure 88 mm[Hg] Mayte Ahn MD Work Phone: [facility] 03-31-2024 08:48-0500 Heart rate 86 /min Mayte Ahn MD Work Phone: [facility] 03-31-2024 08:48-0500 Systolic blood pressure 146 mm[Hg] Mayte Ahn MD Work Phone: [facility] 03-31-2024 08:28-0500 Diastolic blood pressure 104 mm[Hg] Ct (I-Stat) Work Phone: [facility] 03-31-2024 08:28-0500 Heart rate 87 /min Ct (I-Stat) Work Phone: [facility] 03-31-2024 08:28-0500 Systolic blood pressure 169 mm[Hg] Ct (I-Stat) Work Phone: [facility] 01-29-2024 11:15-0500 Diastolic blood pressure 75 mm[Hg] Mayte Ahn MD Work Phone: [facility] 01-29-2024 11:15-0500 Systolic blood pressure 127 mm[Hg] Mayte Ahn MD Work Phone: [facility] 01-29-2024 11:14-0500 Body height 162.6 cm Mayte Ahn MD Work Phone: [facility] 01-29-2024 11:14-0500 Body mass index (BMI) [Ratio] 36.56 kg/m2 Mayte Ahn MD Work Phone: [facility] 01-29-2024 11:14-0500 Body weight 96.62 kg Mayte Ahn MD Work Phone: [facility] 01-29-2024 11:14-0500 Heart rate 79 /min Mayte Ahn MD Work Phone: [facility] 01-29-2024 11:14-0500 Respiratory rate 18 /min Mayte Ahn MD Work Phone: [facility] 01-29-2024 11:14-0500 SaO2% (BldA) [Mass fraction] 93 % Mayte Ahn MD Work Phone: [facility] Comment on above: 12-17-2023 10:55-0500 Body mass index (BMI) [Ratio] 35.78 kg/m2 Tiffanie Whitesidek DO Work Phone: [facility] 12-17-2023 10:55-0500 Body weight 97.52 kg Tiffanie Whitesidek DO Work Phone: [facility] 12-17-2023 10:55-0500 Diastolic blood pressure 80 mm[Hg] Tiffanie Mieshak DO Work Phone: [facility] 12-17-2023 10:55-0500 Heart rate 81 /min Tiffanie Whitesidek DO Work Phone: [facility] 12-17-2023 10:55-0500 SaO2% (BldA) [Mass fraction] 98 % Tiffanie Mieshak DO Work Phone: [facility] 12-17-2023 10:55-0500 Systolic blood pressure 140 mm[Hg] Tiffanie Mieshak DO Work Phone: [facility] 12-12-2023 14:03-0400 Body height 162.56 cm DO Tiffanie Whitesidek Work Phone: [facility] 12-12-2023 14:03-0400 Body weight 97.52 kg DO Tiffanie Wright Work Phone: [facility] 11-22-2023 15:40-0400 Body mass index (BMI) [Ratio] 35.78 kg/m2 Yuerong Tejal MEDICAL STAFF SERVICES COORDINATOR Work Phone: [facility] 11-22-2023 15:40-0400 Body weight 97.52 kg Yuerong Tejal MEDICAL STAFF SERVICES COORDINATOR Work Phone: [facility] 11-22-2023 15:40-0400 Diastolic blood pressure 100 mm[Hg] Yuerong Tejal MEDICAL STAFF SERVICES COORDINATOR Work Phone: [facility] 11-22-2023 15:40-0400 Heart rate 80 /min Selma Owens MEDICAL STAFF SERVICES COORDINATOR Work Phone: [facility] 11-22-2023 15:40-0400 SaO2% (BldA) [Mass fraction] 98 % Selma Owens MEDICAL STAFF SERVICES COORDINATOR Work Phone: [facility] 11-22-2023 15:40-0400 Systolic blood pressure 180 mm[Hg] Selma Owens MEDICAL STAFF SERVICES COORDINATOR Work Phone: [facility] 11-12-2023 11:27-0400 Body height 165.1 cm Tiffanie Wright DO Work Phone: [facility] 11-12-2023 11:27-0400 Body mass index (BMI) [Ratio] 35.78 kg/m2 Tiffanie Wright DO Work Phone: [facility] 11-12-2023 11:27-0400 Body weight 97.52 kg Tiffanie Wright DO Work Phone: [facility] 11-12-2023 11:27-0400 Diastolic blood pressure 90 mm[Hg] Tiffanie Wright DO Work Phone: [facility] 11-12-2023 11:27-0400 Heart rate 78 /min Tiffanie Wright DO Work Phone: [facility] 11-12-2023 11:27-0400 SaO2% (BldA) [Mass fraction] 97 % Tiffanie Wright DO Work Phone: [facility] 11-12-2023 11:27-0400 Systolic blood pressure 160 mm[Hg] Tiffanie Wright DO Work Phone: [facility] Healthcare Encounters Encounter Date Encounter Type Care Provider Facility Start: 08-12-2024 End: 08-12-2024 Office outpatient visit 25 minutes Tiffanie Wright DO Work Phone: [facility] IM Comment on above: Type 2 diabetes pretty itus with other circulatory complication, without long-term current use of insulin (HCC); Erectile dysfunction, unspecified erectile dysfunction type Start: 08-12-2024 End: 08-12-2024 ambulatory TIFFANIE WRIGHT Not Available Start: 05-21-2024 End: 07-21-2024 Follow-up encounter Mayte Ahn MD Work Phone: Cardiology Start: 05-21-2024 End: 05-21-2024 ambulatory MAYTE AHN Facility:[facility] Start: 05-21-2024 End: 05-21-2024 ambulatory MAYTE LANECOHEN Facility:[facility] Start: 05-21-2024 End: 05-21-2024 Office outpatient visit 25 minutes Mayte Ahn MD Work Phone: Cardiology Comment on above: High cholesterol (Pr imary Dx); Hypertension, unspecified type; Coronary artery disease involving tyonek coronary artery of tyonek heart, unspecified whether angina present; Controlled type 2 diabetes mellitus without complication, unspecified whether custodial insulin use (HCC) Start: 04-08-2024 End: 04-08-2024 Patient encounter procedure Mayte Ahn MD Work Phone: Cardiology Start: 04-08-2024 End: 04-08-2024 ambulatory Mayte Ahn MD Work Phone: Cardiology Start: 04-07-2024 End: 04-07-2024 Telephone encounter Mayte Ahn MD Work Phone: Cardiology Comment on above: Patient Education Start: 04-03-2024 End: 04-07-2024 Follow-up encounter Mayte Ahn MD Work Phone: Cardiology Start: 04-02-2024 End: 04-02-2024 ambulatory MAYTE AHN Facility:[facility] Start: 03-31-2024 End: 05-31-2024 Follow-up encounter Mayte Ahn MD Work Phone: Cardiology Start: 03-31-2024 End: 03-31-2024 Office outpatient visit 40 minutes Mayte Ahn MD Work Phone: Cardiology Comment on above: Hypertension, unspec ified type (Primary Dx); Coronary artery disease involving tyonek coronary artery of tyonek heart, unspecified whether angina present; SOB (shortness of breath) Start: 03-31-2024 End: 03-31-2024 ambulatory MAYTE AHN Facility:[facility] Start: 03-31-2024 End: 03-31-2024 Subsequent hospital visit by physician Kinza Sol (I-Stat) Work Phone: Radiology Comment on above: Abnormal stress test [R94.39] Start: 01-29-2024 End: 01-29-2024 ambulatory MAYTE AHN Facility:[facility] Start: 01-29-2024 End: 01-29-2024 Office outpatient new 60 minutes Mayte Ahn MD Work Phone: Cardiology Comment on above: Hypertension, unspec ified type (Primary Dx); Abnormal stress test; Cardiomegaly; Controlled type 2 diabetes mellitus without complication, with long-term current use of insulin ([facility]); High cholesterol; Overweight Start: 01-29-2024 End: 01-29-2024 [facility] Facility[facility] Start: 01-28-2024 End: 01-28-2024 Telephone encounter Mayte Ahn MD Work Phone: Cardiology Comment on above: Results Start: 01-25-2024 End: 01-25-2024 Telephone encounter Rose Chicas MD Work Phone: Cardiology Comment on above: High coronary artery calcium score (Primary Dx) Start: 12-17-2023 End: 12-17-2023 Office outpatient visit 25 minutes Tiffanie Wright DO Work Phone: [facility] Comment on above: Abnormal stress test (Primary Dx); Type 2 diabetes mellitus with other circulatory complication, without long-term current use of insulin (CMS/HCC); High coronary artery calcium score; Atherosclerosis of both carotid arteries; Hypertensive heart disease with heart failure (CMS/HCC); Class 2 severe obesity due to excess calories with serious comorbidity and body mass index (BMI) of 35.0 to 35.9 in adult (CMS/HCC); Morbid (severe) obesity due to excess calories (CMS/HCC); Mixed hyperlipidemia (CMS/HCC); Body mass index (BMI) 35.0-35.9, adult Start: 12-17-2023 End: 12-17-2023 ambulatory TIFFANIE WRIGHT Not Available Start: 12-12-2023 Non-patient / Non-visit DO Yash Wright Work Phone: [facility] Cardiology Work Phone: Start: 12-12-2023 End: 12-12-2023 Patient encounter procedure DO Tiffanie Wright Work Phone: [facility] Work Phone: Start: 12-12-2023 End: 12-12-2023 ambulatory DO Tiffanie Wright Work Phone: [facility] Work Phone: Start: 11-24-2023 End: 11-24-2023 Clinisync Result Encounter Tiffanie Wright DO Work Phone: [facility] Unsolicited Start: 11-24-2023 End: 11-24-2023 Clinisync Result Encounter Tiffanie Wright DO Work Phone: [facility] Unsolicited Start: 11-22-2023 End: 11-22-2023 Office outpatient visit 40 minutes Selma Owens MEDICAL STAFF SERVICES COORDINATOR Work Phone: [facility] Comment on above: Type 2 diabetes pretty itus with other circulatory complication, without long-term current use of insulin (CMS/HCC) (Primary Dx); Hypertensive heart disease without heart failure (CMS/HCC); High coronary artery calcium score; Atherosclerosis of both carotid arteries; Hypertensive heart disease with heart failure (CMS/HCC) Start: 11-22-2023 End: 11-22-2023 ambulatory SELMA TEJAL Not Available Start: 11-12-2023 End: 11-12-2023 Transitional care manage srvc 7 day discharge Tiffanie Wright DO Work Phone: [facility] Comment on above: Pulmonary edema w/co ngestive heart failure w/preserved LV function (CMS/HCC) (Primary Dx); Diet is high in sugar; Hypertensive heart disease without heart failure (CMS/HCC); Screening PSA (prostate specific antigen); Mixed hyperlipidemia (CMS/HCC); Prediabetes; High coronary artery calcium score; Atherosclerosis of both carotid arteries; Morbid obesity (CMS/HCC); Chronic kidney disease, stage 3a (HCC) (CMS/HCC) Start: 11-12-2023 End: 11-12-2023 ambulatory TIFFANIE WRIGHT Not Available Start: 11-05-2023 Non-patient / Non-visit DO Yash Wright Work Phone: [facility] Work Phone: Start: 01-26-2021 End: 01-27-[address] DOCTOR RAYGOZA Facility:H1 Start: 02-06-2017 Ambulatory TIFFANIE WRIGHT Facility :[id number] Start: 02-06-2017 Ambulatory Facility:[id number] Procedures Date Procedure Procedure Detail Performing Clinician Start: 08-12-2024 Hemoglobin glycosyla raf a1c Tiffanie Wright DO Work Phone: Start: 03-31-2024 Cta hrt cornry art/b ypass grfts contrst 3d post Mayte Ahn MD Work Phone: Start: 03-31-2024 Creatinine [Mass/vol ume] in Serum or Plasma [facility] Provider Start: 01-29-2024 Lipid 1996 panel - S karissa or Plasma Mayte Ahn MD Work Phone: Start: 12-17-2023 Hemoglobin glycosyla raf a1c Yuerong Tejal MEDICAL STAFF SERVICES COORDINATOR Work Phone: Start: 11-24-2023 TB MICROALB CREAT R ATIO RANDOM Tiffanie Wright DO Work Phone: Plan of Treatment Date Care Activity Detail Author Start: 2036 RSV Vaccine (1 - 1-d ose 75+ series) RSV Vaccine (1 - 1-dose 75+ series) [facility] Start: 01-28-2029 Lipid panel Lipid Screening [facility] Start: 04-02-2027 Diabetes Screening Diabetes Screenin g [facility] Start: 01-28-2027 Diabetes Screening Diabetes Screenin g [facility] Start: 12-16-2026 Diabetes Screening Diabetes Screenin g [facility] Start: 05-21-2025 Hepatitis B surface antibody level LDL Cholesterol [facility] Start: 01-28-2025 Hepatitis B surface antibody level LDL Cholesterol [facility] Start: 11-24-2024 End: 11-24-2024 Patient encounter procedure 11/24/2024 10:30 AM EDT Office Visit Cardiology [address] [place] [address] Mayte Ahn MD [address] [place] [address] DX: Cath follow upEstablished intervention patient Cardiology Comment on above: DX: Cath follow upEs tablished intervention patient Start: 11-24-2024 End: 11-24-2024 Follow-up encounter 11/24/2024 10:00 AM EDT Results Only [address] [place] [address] [place] [address] DX: Cath follow upEstablished intervention patient [facility] [place] [facility] [facility] Comment on above: DX: Cath follow upEs tablished intervention patient Start: 11-23-2024 Urine screening for protein Diabetes: Urine Protein Screening [facility] Start: 11-20-2024 End: 02-19-2025 Comprehensive metabolic 2000 panel - Serum or Plasma COMPREHENSIVE METABOLIC PANEL Lab Routine High cholesterol Expected: 11/20/2024, Expires: 02/19/2025 [facility] Comment on above: Expected: 11/20/2024 , Expires: 02/19/2025 Start: 11-20-2024 End: 02-19-2025 Lipid 1996 panel - Serum or Plasma LIPID PANEL, FASTING Lab Routine High cholesterol Expected: 11/20/2024, Expires: 02/19/2025 [facility] Comment on above: Expected: 11/20/2024 , Expires: 02/19/2025 Start: 11-19-2024 End: 11-19-2024 Patient encounter procedure 11/19/2024 10:30 AM EDT Office Visit [facility] [address] [place] [address] Tiffanie Wright DO [address] [place] [address] [facility] Start: 11-12-2024 Hemoglobin A1c measurement Diabetes: Hemoglobin A1C [facility] Start: 11-10-2024 End: 08-12-2025 Comprehensive metabolic 2000 panel - Serum or Plasma Comprehensive metabolic panel Lab Routine Type 2 diabetes mellitus with other circulatory complication, without long-term current use of insulin (HCC) Expected: 11/10/2024, Expires: 08/12/2025 [facility] Work Phone: Comment on above: Expected: 11/10/2024 , Expires: 08/12/2025 Start: 11-10-2024 End: 08-12-2025 Hemoglobin a1c with eag Hemoglobin a1c with eag Lab Routine Type 2 diabetes mellitus with other circulatory complication, without long-term current use of insulin (HCC) Expected: 11/10/2024, Expires: 08/12/2025 [facility] Comment on above: Expected: 11/10/2024 , Expires: 08/12/2025 Start: 10-13-2024 Influenza vaccination [facility] Start: 09-29-2024 End: 09-29-2024 Patient encounter procedure 09/29/2024 10:30 AM EDT Office Visit Cardiology [address] [id number] Mayte Ahn MD [address] [place] [address] Coronary artery disease involving tyonek coronary artery of tyone[place] heart, unspecified whether angina present Cardiology Comment on above: Coronary artery dise ase involving tyonek coronary artery of tyonek heart, unspecified whether angina present Start: 09-29-2024 End: 09-29-2024 ambulatory 09/29/2024 10:00 AM EDT Results Only [place] [address] [address] [address] [place] [address] LAB WORK [facility] Draw Station Comment on above: LAB WORK Start: 09-28-2024 End: 12-28-2024 Comprehensive metabolic 2000 panel - Serum or Plasma COMPREHENSIVE METABOLIC PANEL Lab Routine Coronary artery disease involving tyonek coronary artery of tyonek heart, unspecified whether angina present Expected: 09/28/2024, Expires: 12/28/[address] [facility] Work Phone: Comment on above: Expected: 09/28/2024 , Expires: 12/28/2024 Start: 09-28-2024 End: 12-28-2024 Lipid 1996 panel - Serum or Plasma LIPID PANEL BASIC Lab Routine Coronary artery disease involving tyonek coronary artery of tyonek heart, unspecified whether angina present Expected: 09/28/2024, Expires: 12/28/2024 [facility] Comment on above: Expected: 09/28/2024 , Expires: 12/28/2024 Start: 08-11-2024 Influenza vaccination Influenza Vacc ine (#1) [facility] Comment on above: Postponed from 10/13 (Other Patient Reasons) Start: 06-15-2024 Hemoglobin A1c measurement HbA1C [facility] Start: 05-21-2024 End: 08-20-2024 Comprehensive metabolic 2000 panel - Serum or Plasma [facility] Work Phone: Comment on above: Expected: 05/21/2024 , Expires: 08/20/2024 Start: 05-21-2024 End: 08-20-2024 Lipid 1996 panel - Serum or Plasma [facility] Comment on above: Expected: 05/21/2024 , Expires: 08/20/2024 Start: 04-08-2024 End: 04-08-2024 Admission to same day surgery center 04/08/2024 4:05 PM EST - 04/08/2024 5:02 PM EST Surgery [facility] [address] [place] [address] Mayte Ahn MD [address] [place] [address]ON[address] W IMAGE INJECT & INTERP W LT HEART CATH W INJECT LT VENTRGRAPHY [facility] Comment on above: CORONARY ANGIO W CAT H PLACE W IMAGE INJECT & INTERP W LT HEART CATH W INJECT LT VENTRGRAPHY Start: 04-08-2024 End: 04-08-2024 Cath plmt l hrt & arts w/njx & angio img s&i CORONARY ANGIO W CATH PLACE W IMAGE INJECT & INTERP W LT HEART CATH W INJECT LT VENTRGRAPHY Coronary artery disease involving tyonek coronary artery of tyonek heart, unspecified whether angina present 04/08/2024 4:05 PM EST PAYMENT SPECIALIST Start: 04-08-2024 End: 04-08-2024 Prq trluml coronary stent w/angio one art/brnch INSERT INTRACORONARY STENT-PER MAJOR VESSEL OR BRANCH Coronary artery disease involving tyonek coronary artery of tyonek heart, unspecified whether angina present 04/08/2024 4:05 PM EST PAYMENT SPECIALIST Start: 04-08-2024 Subsequent hospital visit by physician 04/08/2024 4:05 PM EST Hospital Encounter [facility] [address] [place] [address] Mayte Ahn MD [address] [id number] Coronary artery disease involving tyonek coronary artery of tyonek heart, unspecified whether angina present [I25.10] [facility] Comment on above: Coronary artery dise ase involving tyonek coronary artery of tyonek heart, unspecified whether angina present [I25.10] Start: 04-08-2024 End: 04-08-2024 ambulatory 04/08/2024 7:30 AM EST Procedure Cardiology [address] [place] [address] Mayte Ahn MD [address] [place] [address] DX:Coronary artery disease involving tyonek coronary artery of tyonek heart, unspecified whether angina present Cardiology Comment on above: DX:Coronary artery d isease involving tyonek coronary artery of tyonek heart, unspecified whether angina present Start: 04-08-2024 End: 04-08-2024 Patient encounter procedure 04/08/2024 7:30 AM EST Office Visit Admitting [address] [place] [address] Admit Admitting Comment on above: Admit Start: 04-02-2024 End: 04-02-2024 ambulatory 04/02/2024 8:15 AM EST Results Only [address] [place] [address] [facility] [address] [facility] Start: 03-31-2024 End: 03-31-2024 Patient encounter procedure Radiology Comment on above: Abnormal stress test Start: 03-18-2024 Hemoglobin A1c measurement Diabetes: Hemoglobin A1C [facility] Start: 01-29-2024 End: 01-29-2024 ambulatory 01/29/2024 9:30 AM EST Results Only Cardiology [address] [place] [address] high calcium score/abnormal stress test Cardiology Comment on above: high calcium score/a bnormal stress test Start: 01-29-2024 End: 01-29-2024 Patient encounter procedure [facility] Comment on above: high calcium score/a bnormal stress test Start: 12-17-2023 End: 12-17-2023 Patient encounter procedure 12/17/2023 11:00 AM EST Office Visit [facility] [address] [place] [id number] Tiffanie Wright DO [address] [place] [address] [facility] Start: 12-12-2023 End: 02-11-2024 NM Heart Perfusion W single state of exercise Stress test with myocardial perfusion Cardiac Nuclear Medicine Routine Pulmonary edema w/congestive heart failure w/preserved LV function (CMS/HCC) Expected: 12/12/2023 (Approximate), Expires: 02/11/2024 [facility] Comment on above: Expected: 12/12/2023 (Approximate), Expires: 02/11/2024 Start: 12-12-2023 Radionuclide myocard ial perfusion stress study NM xavier perf SPECT rest & str [facility] Start: 12-12-2023 SPECT Heart perfusio n at rest and W stress and W radionuclide IV [facility] Start: 11-26-2023 End: 11-11-2024 Apolipoprotein B [Mass/volume] in Serum or Plasma APOLIPOPROTEIN B Lab Routine Hypertensive heart disease without heart failure (CMS/HCC) Expected: 11/26/2023 (Approximate), Expires: 11/11/2024 [facility] Comment on above: Expected: 11/26/2023 (Approximate), Expires: 11/11/2024 Start: 11-26-2023 End: 11-11-2024 Comprehensive metabolic 2000 panel - Serum or Plasma Comprehensive metabolic panel Lab Routine Hypertensive heart disease without heart failure (CMS/HCC) Expected: 11/26/2023 (Approximate), Expires: 11/11/2024 [facility] Work Phone: Comment on above: Expected: 11/26/2023 (Approximate), Expires: 11/11/2024 Start: 11-26-2023 End: 11-11-2024 Lipid 1996 panel - Serum or Plasma Lipid panel Lab Routine Hypertensive heart disease without heart failure (CMS/HCC) Expected: 11/26/2023 (Approximate), Expires: 11/11/2024 [facility] Comment on above: Expected: 11/26/2023 (Approximate), Expires: 11/11/2024 Start: 11-26-2023 End: 02-10-2025 Microalbumin/Creatinine panel in random Urine Microalbumin / creatinine urine ratio Lab Routine Hypertensive heart disease without heart failure (CMS/HCC) Expected: 11/26/2023, Expires: 02/10/2025 [facility] Comment on above: Expected: 11/26/2023 , Expires: 02/10/2025 Start: 11-26-2023 End: 11-11-2024 Natriuretic peptide.B prohormone N-Terminal [Mass/volume] in Serum or Plasma N-Terminal Probnp Lab Routine Pulmonary edema w/congestive heart failure w/preserved LV function (CMS/HCC) Expected: 11/26/2023 (Approximate), Expires: 11/11/2024 [facility] Comment on above: Expected: 11/26/2023 (Approximate), Expires: 11/11/2024 Start: 11-26-2023 End: 02-10-2025 Prostate specific Ag [Mass/volume] in Serum or Plasma PSA Lab Routine Screening PSA (prostate specific antigen) Expected: 11/26/2023 (Approximate), Expires: 02/10/2025 [facility] Comment on above: Expected: 11/26/2023 (Approximate), Expires: 02/10/2025 Start: 10-14-2023 Covid-19 Vaccine ( season) Covid-19 Vaccine ( season) [facility] Start: 10-14-2023 Influenza vaccination Influenza Vacc ine (#1) [facility] Start: 07-27-2023 Screening for malign ant neoplasm of colon [facility] Start: 08-13-2022 Glaucoma screening Diabetes: R etinopathy Screening [facility] Start: 07-15-2022 Urine screening for protein Diabetes: Urine Protein Screening [facility] Start: 10-15-2021 Hemoglobin A1c measurement Diabetes: Hemoglobin A1C [facility] Start: 2016 Prostate specific antigen measurement Prostate Cancer Screening Discussion [facility] Start: 12-14-2011 Pneumococcal Vaccine : 50+ (1 of 1 - PCV) Pneumococcal Vaccine: 50+ (1 of 1 - PCV) [facility] Start: 12-14-2011 Shingrix Vaccine (1 of 2) Shingrix Vaccine (1 of 2) [facility] Start: 2006 Prostate specific antigen measurement Prostate Cancer Screening Discussion [facility] Start: 2006 Screening for malign ant neoplasm of colon [facility] Start: 1996 Lipid panel Lipid Screening [facility] Start: 1980 Pneumococcal Vaccine : 50+ (1 of 2 - PCV) Pneumococcal Vaccine: 50+ (1 of 2 - PCV) [facility] Start: 1980 Urine microalbumin profile DTaP,Tdap,Td Vaccine (1 - Tdap) [facility] Start: 12-14-1979 Annual PCP Team [place] Disease Visit Annual PCP Team Chronic Disease Visit [facility] Start: 12-14-1979 Anxiety Screening Anxiety Screening [facility] Start: 12-14-1979 BP Controlled (<130/80) BP Controlle d (<130/80) [facility] Start: 12-14-1979 Depression Screening Depression Scre ening [facility] Start: 12-14-1979 Hepatitis C screening Hepatitis C Sc reeyoselin [facility] Start: 12-14-1979 HIV screening HIV Screening [facility] Start: 12-14-1971 Diabetic foot examination Diabetic Foot Exam [facility] Start: 12-14-1971 Glaucoma screening Dilated Retinal E xam [facility] Start: 12-14-1971 Hepatitis B screening Urine Al bumin:Creatinine Ratio [facility] Start: 1961 Screening for malign ant neoplasm of colon [facility] End: 02-27-2025 CTA Heart and Coronary arteries W contrast IV CTA CORONARY W IVCON Radiology Routine Abnormal stress test 1 Occurrences starting 01/29/2024 until 02/27/[address] [facility] Work Phone: Comment on above: 1 Occurrences starti ng 01/29/2024 until 02/27/2025 End: 01-24-2025 ECG COMPLETE ECG COMPLETE ECG Routine High coronary artery calcium score 1 Occurrences starting 01/25/2024 until 01/24/[address] [facility] Work Phone: Comment on above: 1 Occurrences starti ng 01/25/2024 until 01/24/2025 Immunizations Immunization Date Immunization Notes Care Provider Ismael whitaker 01-21-2021 Influenza, injectabl e, Madin [place] Canine Kidney, preservative free, quadrivalent Tiffanie Reynosokarie DO Work Phone: [facility] 01-21-2021 influenza virus vacc ine, unspecified formulation Tiffanie Wright DO Work Phone: [facility] 01-30-2017 influenza, injectabl e, quadrivalent, preservative free Tiffanie Wright DO Work Phone: [facility] Payers Date Payer Category Payer Unknown [id number] 2023 Self-pay [id number] 2022 [employer] [id number] 2022 Unknown [id number] 2022 Unknown [id number] 1961 Unknown [id number] [id number] 1961 Unknown [id number] 2.16.8 [id number] 1961 Unknown [id number] [id number] [id number] 1961 Unknown [id number] [id number] [id number] 1961 Unknown [id number] [id number] 1959 Unknown [id number] Unknown JHONNY TALAMANTES Unknown [id number] [id number] [id number] Social History Date Type Detail Facility Start: 11-12-2023 Tobacco smoking status INIS Tobacco smoking consumption unknown [facility] Start: 11-12-2023 End: 08-12-2024 Tobacco use and exposure User of smokeless tobacco [facility] History of tobacco use Chews Tobacco [facility] Start: 11-22-2023 End: 05-21-2024 Alcoholic beverage intake Current drinker of alcohol (finding) [facility] Start: 11-12-2023 End: 08-12-2024 [facility] of Social function [facility] Start: 11-12-2023 End: 08-12-2024 Alcohol Use Disorder Identification Test - Consumption [AUDIT-C] [facility] How often to you hav e a drink containing alcohol? Never [facility] How many standard dr inks containing alcohol do you have on a typical day? 1 or 2 [facility] How often do you hav e 6 or more drinks on 1 occasion? Less than monthly [facility] Start: 1960 Sex assigned at Not on file [facility] Start: 1960 Sex Assigned At Male [facility] Start: 01-29-2024 Tobacco smoking status INIS Never smoked tobacco [facility] History of tobacco use Snuff User [facility] National Score (1-10 0), lower number is lower risk 64 [facility] Start: 01-29-2024 Alcohol Comment rare [facility] Start: 08-12-2024 Tobacco smoking status NHIS Occasional tobacco smoker [facility] Start: 08-12-2024 Alcoholic beverage intake Ex-drinker (finding) [facility] re Medical Equipment Procedure Code Equipment Code Equipment Origin al Text Equipment Identifier Dates USE TO TEST DAILY [id number] Start: 07-04-2022 Goals Date Patient Goal Desired Activity /State Personal health goal Functional Status Date Assessment Result Facility 08-12-2024 Total score [AUDIT-C] 0 08/13/19 9:56 AM EDT Jennifer Rutherford LPN [facility] 08-12-2024 Patient Health Quest ionnaire 2 item (PHQ-2) [Reported] [facility] 04-08-2024 Are you deaf, or do you have serious difficulty hearing No 04/08/2024 12:17 PM Lurdes Landis RN No [facility] 04-08-2024 Are you blind, or do you have serious difficulty seeing, even when wearing glasses No 04/08/2024 12:17 PM Lurdes Landis RN [facility] 04-08-2024 Do you have serious difficulty walking or climbing stairs No 04/08/2024 12:17 PM Lurdes Landis RN No [facility] 04-08-2024 Do you have difficul ty dressing or bathing No 04/08/2024 12:17 PM Lurdes Landis RN No [facility] 04-08-2024 Because of a physica l, mental, or emotional condition, do you have difficulty doing errands alone such as visiting a physician's office or shopping No 04/08/2024 12:17 PM Lurdes Landis RN [facility] Mental Status Date Assessment Result Facility 04-08-2024 Because of a physica l, mental, or emotional condition, do you have serious difficulty concentrating, remembering, or making decisions No 04/08/2024 12:17 PM Lurdes Landis RN No [facility] Clinical Notes 11-12-2023 to 08-12-2024 Tiffanie Wright, - 08/12/2024 10:00 AM EDTPatient InstructionsResult Encounter Note - Mayte Ahn MD - 05/21/2024 6:07 PM EDTPatient InstructionsPatient Instructions Note Date & Type Note Facility 08-12-2024 History of Present illness Narrative Images from the original note were not included. Patient presents today for 6M HPI: HPI History of Present Illness The patient presents for weight management, erectile dysfunction, and type 2 diabetes. He is accompanied by his . He has been experiencing weight loss, with a recent decrease of 15 pounds. He has been on Mounjaro 5 mg for the past 6 months, which he reports as being effective. He administers the injections in the back of his arm, finding it less painful than when he tried injecting into his stomach. He has not experienced any nausea with this medication. He has previously tried Ozempic but discontinued its use due to dizziness and fainting episodes. He reports difficulty in achieving an erection. He has not yet tried any treatments for this issue. He has type 2 diabetes. He is currently on Mounjaro 5 mg. He had a sleep study done [address] Barlow and was diagnosed with restless leg syndrome. He has a history of coronary artery disease. In March, he underwent a catheterization which revealed three veins on the back of his heart, one completely blocked and the other two 70% blocked. Due to the small size of the veins, no intervention was performed as he is receiving adequate blood supply from other parts of his heart. He has a chronic 100% blocked artery in his right coronary artery, which has been present for a long time, and he has developed collateral circulation to compensate for the blockage. 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 He has documented heart disease. FAMILY HISTORY His mother had sticky cholesterol. HISTORIES: PAST MEDICAL HISTORY: Past Medical History: Diagnosis Date GERD (gastroesophageal reflux disease) Hypertension Stroke (HCC) SURGICAL HISTORY: Past Surgical History: Procedure Laterality Date BASAL CELL CARCINOMA EXCISION 03/[address] ANGIOGRAM HEART CORONARY 03/31/2024 CT ANGIOGRAM HEART CORONARY 03/31/2024 OTHER SURGICAL HISTORY N/A 07/2020 negative cologuard SOCIAL HISTORY: Social History Tobacco Use Smoking status: Some Days Smokeless tobacco: Current Types: Chew Vaping Use Vaping status: Never Used Substance Use Topics Alcohol use: Not Currently Drug use: Never Depression: Not at risk (08/12/2024) PHQ-2 PHQ-2 Score: 0 FAMILY HISTORY: Family History Problem Relation Name Age of Onset Diabetes Mother Mom Hypertension Mother Mom Heart disease Mother Mom Heart disease Maternal Grandfather Mom MEDICATIONS: Current Outpatient Medications Medication Instructions amLODIPine (NORVASC) 5 mg, Oral, Daily aspirin 81 mg, Daily atorvastatin (LIPITOR) 40 mg, Daily carvedilol (COREG) 25 mg, Oral, 2 times daily with meals, Take with food. eplerenone (INSPRA) 50 mg, Oral, 2 times daily isosorbide mononitrate ER (IMDUR) 60 mg, Oral, Daily, Do not crush or chew. losartan (COZAAR) 100 mg, Oral, Nightly nitroglycerin (NITROSTAT) 0.4 mg, Sublingual, Every 5 min PRN [employer] (now [employer])uch Ultra test strip USE TO TEST DAILY Tirzepatide (Mounjaro) 5 MG/0.5ML solution auto-injector INJECT 5 MG UNDER THE SKIN ONCE A WEEK ALLERGIES: Allergies Allergen Reactions Ozempic (0.25 Or 0.5 Mg-Dose) [Semaglutide(0.25 Or 0.5mg-Dos)] Dizziness Spironolactone Other Breast tenderness PHYSICAL EXAM: Visit Vitals BP 116/64 (BP Location: Left arm, Patient Position: Sitting) Pulse 76 Ht 5' 5 Wt 200 lb SpO2 98% BMI 33.28 kg/m Smoking Status Some Days BSA 2.04 m BP Readings from Last 3 Encounters: 08/12/24 116/64 12/17/23 140/80 11/22/23 (!) 180/100 Wt Readings from Last 3 Encounters: 08/12/24 200 lb 12/17/23 215 lb 11/22/23 215 lb Physical Exam Physical Exam Results Labs - Calcium: 03/2024, Elevated - Bilirubin: 03/2024, Elevated - Alkaline Phosphatase: 03/2024, Elevated - Long Range Sugar: 5.6 Imaging - CCTA: 03/2024, Severe mild blockage - Catheterization: Three veins on the back of the heart, one completely blocked and the other two are 70% blocked ASSESSMENT AND PLAN: Assessment & Plan 1. Weight management. - His weight loss journey is progressing well, with a significant reduction noted. - The current dosage of Mounjaro 5 mg will be increased to 7.5 mg. If nausea occurs, the dosage can be reduced back to 5 mg. - Discussion included the goal of achieving a weight of 143 pounds. - Continue monitoring weight and adjust dosage as needed. 2. Erectile dysfunction. - Reports difficulty in achieving an erection. - Prescription for Viagra provided, with instructions to take it on an empty stomach. - Advised to seek immediate medical attention at the ER if an erection persists for more than 4 hours. - Counseling on the safe use of medication and potential side effects. 3. Type 2 diabetes. - Long-term blood sugar control is excellent, with an A1c of 5.6. - Continue taking Mounjaro, which should be covered due to documented heart disease. - Discussion included the benefits of Mounjaro for weight loss and diabetes management. - Plan to monitor blood sugar levels and adjust treatment as necessary. Follow-up - A follow-up visit is scheduled in 3 months. documented in this encounter [facility] 08-12-2024 Instructions Jennifer Rutherford LPN - 08/12/2024 10:00 AM EDT ?? ATTENTION: [employer] Policy Update - Effective 07/16/24 Beginning today, our nursing team will review [employer] messages twice daily and help determine the best next steps before involving your provider. If your message requires more than a quick, simple response, a nurse will follow up to decide whether an in-person appointment is needed or if your question can be handled through secure messaging. Please note: Some more detailed or complex medical questions may result in a charge, similar to a brief office visit, if handled via [employer]. We want you to feel informed and confident when using [employer], so here are a few examples to clarify: ? No Charge (Nonbillable Messages): Medication refill requests Lab Requests Sending in provider requested data/follow-ups from visit (e.g., blood pressure, blood sugar, symptoms after treatment, report medication response) Quick questions that can be answered in a sentence or two ?? May Result in a Charge: Questions about a new medical issue that hasn t been evaluated in the past 7 days Messages that require significant provider time, medical decision-making, or new prescriptions/orders We re committed to keeping communication open, clear, and helpful, while ensuring you get the right care at the right time. You will be notified prior to any communication charge. Thank you for partnering with us in your health! documented in this encounter [facility] 05-21-2024 Progress note Formatting of t his note might be different from the original. [place] Enclosed please find your lab results. The labs show elevations in your calcium and bilirubin and alkaline phosphatase but they all seem stable compared to before. While I do not feel this is of concern, please do discuss these labs with your primary care when you meet again. The cholesterol looks good Dr Espinoza [facility] 05-21-2024 Miscellaneous Notes [place] Enclosed please find your lab results. The labs show elevations in your calcium and bilirubin and alkaline phosphatase but they all seem stable compared to before. While I do not feel this is of concern, please do discuss these labs with your primary care when you meet again. The cholesterol looks good Dr Espinoza documented in this encounter [facility] 05-21-2024 Instructions Mayte Ahn MD - 05/21/2024 9:17 AM EDT We discussed your heart health and chronic total occlusion (GREETER): - You have a 100% blocked artery (chronic total occlusion) in your right coronary artery. This blockage is chronic, meaning it has been present for a long time and is not causing immediate risk of a heart attack. Your heart is receiving adequate blood flow through collateral vessels (alternative pathways), which are functioning well. - At this time, we will not attempt to open the blocked artery because you are not experiencing symptoms such as chest pain or shortness of breath, and your stress test did not show a significant defect. The risks of opening the artery outweigh the benefits in your case. - Our focus will be on prevention and managing your risk factors. We discussed your blood pressure: - Your blood pressure today was elevated. The goal is to maintain your blood pressure below 130/80. - Please continue taking your prescribed blood pressure medications as directed. If your blood pressure remains elevated, we may need to adjust your medications. - Work on weight loss and regular exercise to help improve your blood pressure. We discussed your cholesterol: - Your lipoprotein A level is elevated, which is a hereditary risk factor for heart disease. There are no FDA-approved treatments for this at this time, but ongoing clinical trials may offer options in the future. If you are interested in participating in a trial, let me know. - My goal is to lower your LDL cholesterol to less than 55. I will order a blood test to check your cholesterol levels. Please check the blood test fasting today We discussed your weight and exercise: - Continue taking Mounjaro as prescribed to assist with weight loss. Let me know if you experience any side effects or have concerns. - Begin a regular exercise routine. Aim for 30 minutes of brisk walking daily. This should be a continuous walk covering 1.5 to 2 miles in 30 minutes. Start at a pace you are comfortable with and gradually increase intensity as tolerated. We reviewed your medications: - Continue taking aspirin, atorvastatin, amlodipine, carvedilol, Inspra, Imdur (60 mg), and losartan as prescribed. - If you experience any new or concerning symptoms, such as chest pain, shortness of breath, or dizziness, please contact me immediately. Follow-up: - Please have your cholesterol checked today and before your next visit. - Follow up with your local doctor on August 12 to monitor your blood pressure. - I will see you again in 6 months. If you have any questions or concerns before then, please reach out to my office. documented in this encounter [facility] 05-21-2024 Note HNO ID: [id number] Author: MAYTE AHN MD Service: ? Author Type: Physician Type: Progress Notes Filed: 05/21/2024 09:27 Note Text: [facility] [place] [facility] Department of Cardiovascular Medicine SECTION OF INTERVENTIONAL CARDIOLOGY OUTPATIENT VISIT DATE May 21, 2024 OUTPATIENT VISIT TYPE Followup PRIMARY CARE PHYSICIAN: Beverley Owens, CHRIS [address] [place] [id number] CHIEF COMPLAINT: Followup HISTORY OF PRESENT ILLNESS: Mr. Todd is a 63 year old male with a history of hypertension, hypercholesterolemia, and diabetes mellitus, presenting for evaluation following a recent hospitalization for dyspnea and an abnormal stress. A CTA was done showing severe disease and cath was advised. This was done in and this showed a GREETER of the RCA with good collaterals and a moderate mid LAD. Given absence of symptoms and mild ischemia, I advised medical therapies. He is overall feeling well. He has no chest pain or JOHNSTON. He is not exercising but walks in his yard which is an acre for about 15-20 minutes at a time. He has no chest pain or JOHNSTON. He has no bleeding or fainting or falls or dizziness of aches PAST MEDICAL HISTORY Diagnosis Date Abnormal stress test Cardiomegaly Noted on CXR with EF on echo at the lower limits of normal Coronary artery disease Diabetes mellitus (HCC) HLD (hyperlipidemia) HTN (hypertension) Skin cancer History reviewed. No pertinent surgical history. SOCIAL HISTORY Social History Tobacco Use Smoking status: Never Smokeless tobacco: Current Types: Snuff Vaping Use Vaping status: Never Used Substance Use Topics Alcohol use: Yes Comment: rare Drug use: Not Currently FAMILY HISTORY Problem Relation Age of Onset Coronary Artery Disease Mother 75 stents Heart Attack Mother 75 Hypertension Mother Stroke Mother Cancer Father No Known Problems Brother No Known Problems Sister ALLERGIES: ALLERGIES Allergen Reactions Ozempic [Semaglutid* Other: See Comments dizziness Spironolactone Other: See Comments Breast tenderness MEDICATIONS: Current Outpatient Medications Medication Sig atorvastatin (LIPITOR) 40 mg tablet Take 1 tablet by mouth once daily. amLODIPine (NORVASC) 5 mg tablet Take 5 mg by mouth once daily. aspirin, enteric coated (ASPIRIN, ENTERIC COATED) 81 mg EC tablet Take 81 mg by mouth once daily. carvedilol (COREG) 25 mg tablet Take 25 mg by mouth two times a day with meals. eplerenone (INSPRA) 50 mg tablet Take 50 mg by mouth two times a day. isosorbide mononitrate ER (IMDUR) 60 mg 24 hr tablet Take 60 mg by mouth once daily. losartan (COZAAR) 100 mg tablet Take 100 mg by mouth once daily. MOUNJARO 2.5 mg/0.5 mL pen injector Inject 5 mg subcutaneously one time a week. nitroglycerin sublingual (NITROQUICK) 0.4 mg SL tablet Dissolve 0.4 mg under the tongue every 5 minutes as needed. No current facility-administered medications for this visit. REVIEW OF SYSTEMS: ROS see above PHYSICAL EXAMINATION: 05/21/24 0812 BP: 146/73 Pulse: 82 Resp: 15 SpO2: 97% Weight: 96.4 kg (212 lb 9.6 oz) Height: 162.6 cm (5' 4 ) Body mass index is 36.49 kg/m?. General: Well appearing, in no acute distress, speaking in complete sentences.-but overweight Head/Eyes: Grossly normal Lungs: Clear to auscultation and no rales with good effort Heart: Regular rhythm,S1, S2 normal, no S3, no S4, no rub and no murmur. Abdomen: Soft, nontender, bowel sounds normal, no palpable organomegaly, no bruits. Extremities: not examined for edema as he is wearing boots today Musculoskeletal: Normal gait and ambulation Neuro: Oriented to time, place and person IMPRESSION: Mr. Todd is a 63 year old male with hypertension presenting with acute pulmonary edema in the setting of hypertensive crisis from not taking medications. His echo showed LVH and borderline normal LV function . CCTA with severe CAD and cath done showing moderate LAD and GREETER of the RCA with collaterals in and medically managed. # Hypertension, unspecified type (I10) Previously poorly controlled, leading to hypertensive urgency and dyspnea during hospitalization in October. Last visit was controlled but today is elevated. He states his readings are good. Advised weight loss and diet and advised to monitor. But explained goals and if still elevated he may need adjustment of meds Coronary artery disease Nuclear stress test showed ischemia in the inferior wall with large gut uptake which can reduce accuracy. CCTA done (as was preference by patient) with severe CAD and cath done showing moderate LAD and GREETER of the RCA with collaterals in and medically managed. No symptoms of chest pain or JOHNSTON and on aspirin and statin . We review films. I emphasize the goal is on prevention. If worsening symptoms can cons (more content not included)... [facility] 05-21-2024 History of Present illness Narrative Images from the original note were not included. Heart[facility] [place] [facility] Department of Cardiovascular Medicine SECTION OF INTERVENTIONAL CARDIOLOGY OUTPATIENT VISIT DATE May 21, 2024 OUTPATIENT VISIT TYPE Followup PRIMARY CARE PHYSICIAN: Beverley Owens NP [address] [place] [address] CHIEF COMPLAINT: Followup HISTORY OF PRESENT ILLNESS: Mr. Todd is a 63 year old male with a history of hypertension, hypercholesterolemia, and diabetes mellitus, presenting for evaluation following a recent hospitalization for dyspnea and an abnormal stress. A CTA was done showing severe disease and cath was advised. This was done in and this showed a GREETER of the RCA with good collaterals and a moderate mid LAD. Given absence of symptoms and mild ischemia, I advised medical therapies. He is overall feeling well. He has no chest pain or JOHNSOTN. He is not exercising but walks in his yard which is an acre for about 15-20 minutes at a time. He has no chest pain or JOHNSTON. He has no bleeding or fainting or falls or dizziness of aches PAST MEDICAL HISTORY Diagnosis Date Abnormal stress test Cardiomegaly Noted on CXR with EF on echo at the lower limits of normal Coronary artery disease Diabetes mellitus (HCC) HLD (hyperlipidemia) HTN (hypertension) Skin cancer History reviewed. No pertinent surgical history. SOCIAL HISTORY Social History Tobacco Use Smoking status: Never Smokeless tobacco: Current Types: Snuff Vaping Use Vaping status: Never Used Substance Use Topics Alcohol use: Yes Comment: rare Drug use: Not Currently FAMILY HISTORY Problem Relation Age of Onset Coronary Artery Disease Mother 75 stents Heart Attack Mother 75 Hypertension Mother Stroke Mother Cancer Father No Known Problems Brother No Known Problems Sister ALLERGIES: ALLERGIES Allergen Reactions Ozempic [Semaglutid* Other: See Comments dizziness Spironolactone Other: See Comments Breast tenderness MEDICATIONS: Current Outpatient Medications Medication Sig atorvastatin (LIPITOR) 40 mg tablet Take 1 tablet by mouth once daily. amLODIPine (NORVASC) 5 mg tablet Take 5 mg by mouth once daily. aspirin, enteric coated (ASPIRIN, ENTERIC COATED) 81 mg EC tablet Take 81 mg by mouth once daily. carvedilol (COREG) 25 mg tablet Take 25 mg by mouth two times a day with meals. eplerenone (INSPRA) 50 mg tablet Take 50 mg by mouth two times a day. isosorbide mononitrate ER (IMDUR) 60 mg 24 hr tablet Take 60 mg by mouth once daily. losartan (COZAAR) 100 mg tablet Take 100 mg by mouth once daily. MOUNJARO 2.5 mg/0.5 mL pen injector Inject 5 mg subcutaneously one time a week. nitroglycerin sublingual (NITROQUICK) 0.4 mg SL tablet Dissolve 0.4 mg under the tongue every 5 minutes as needed. No current facility-administered medications for this visit. REVIEW OF SYSTEMS: ROS see above PHYSICAL EXAMINATION: 05/21/24 0812 BP: 146/73 Pulse: 82 Resp: 15 SpO2: 97% Weight: 96.4 kg (212 lb 9.6 oz) Height: 162.6 cm (5' 4 ) Body mass index is 36.49 kg/m . General: Well appearing, in no acute distress, speaking in complete sentences.-but overweight Head/Eyes: Grossly normal Lungs: Clear to auscultation and no rales with good effort Heart: Regular rhythm,S1, S2 normal, no S3, no S4, no rub and no murmur. Abdomen: Soft, nontender, bowel sounds normal, no palpable organomegaly, no bruits. Extremities: not examined for edema as he is wearing boots today Musculoskeletal: Normal gait and ambulation Neuro: Oriented to time, place and person IMPRESSION: Mr. Todd is a 63 year old male with hypertension presenting with acute pulmonary edema in the setting of hypertensive crisis from not taking medications. His echo showed LVH and borderline normal LV function . CCTA with severe CAD and cath done showing moderate LAD and GREETER of the RCA with collaterals in and medically managed. # Hypertension, unspecified type (I10) Previously poorly controlled, leading to hypertensive urgency and dyspnea during hospitalization in October. Last visit was controlled but today is elevated. He states his readings are good. Advised weight loss and diet and advised to monitor. But explained goals and if still elevated he may need adjustment of meds Coronary artery disease Nuclear stress test showed ischemia in the inferior wall with large gut uptake which can reduce accuracy. CCTA done (as was preference by patient) with severe CAD and cath done showing moderate LAD and GREETER of the RCA with collaterals in and medically managed. No symptoms of chest pain or JOHNSTON and on aspirin and statin . We review films. I emphasize the goal is on prevention. If worsening symptoms can consider GREETER PCI. Given moderate LAD I would favor close monitoring as well. # Cardiomegaly (I51.7) Echocardiogram during hospitalization showed borderline weak heart muscle. No current symptoms of dyspnea or chest pain. BNP normal and now without shortness of breath. Will repeat echocardiogram in late 2024 or early 2025 # Controlled type 2 diabetes mellitus without complication, Monitored by PCP # High cholesterol (E78.00) HDL of 41 and LDL of 73 and TG of 119 on labs. HDL 36 and LDL o 79 and TG of 110. LP (a) elevated 130. We discuss this and I advise family screening and aggressive control of LDL. Advised to increase atorvastatin to 40 mg last vist and will check the LDL. Given CAD and elevated Lp (a) would favor stricter LDL targets of < 55. # Overweight (E66.3) On Monjaro and Encouraged regular physical activity, such as walking, to aid in weight management. PLAN AND RECOMMENDATIONS: Continue the current medications To see me in 6 months Increase ambulation as tolerated with a goal to do moderate activity 30 minutes a day 5 days a week Work on weight loss Follow a heart healthy diet, rich in fruits and vegetables, fish and whole grains. Limited the amount of processed foods, sugary drinks, fried foods, red meat, pork, and salt Have BP checked locally with goal of < 130/80 Repeat fasting bloods today and before next visit CONTACT INFORMATION: Mayte Ahn MD, FACC, FA, [facility] [employer] As A Second Language Instructor and Chemistry Department Chair, Acute Coronary Care [facility], [facility] [place] [address] [place] [address], [id number] [place] [address] The patient consented to the use of ambient AI software for draft documentation of the visit consistent with [facility] s Notice of Privacy Practices. documented in this encounter [facility] 04-07-2024 Telephone encounter Note CARDIOVASCULAR LAB INSTRUCTIONS: Readiness to Learn: Cognitive Ability: Alert and oriented Motivation To Learn: Interested Family/Significant Other Support: Unable to assess - Family not present Instruction Provided To: Patient Patient Learns Best By: Verbal Instruction Factors Affecting Learning: None Physical Limitations Affecting Learning: None Learning Response: Procedure: Diagnostic Cath with Intervention Pre procedure education topics: Arrival time/NPO Status/Medications/Travel Instructions/Restrictions Patient/Family Response Evaluation: Verbalizes understanding Follow Up Plan and Medication: As directed by physician Instruction/Supplemental Material Given: Cardiac catheterization instructions, procedure information, hospital information, hotel information. Instructed By Sanna Curtis RN. In Department of CARDIOLOGY. [facility] 04-07-2024 Miscellaneous Notes CARDIOVASCULAR LAB INSTRUCTIONS: Readiness to Learn: Cognitive Ability: Alert and oriented Motivation To Learn: Interested Family/Significant Other Support: Unable to assess - Family not present Instruction Provided To: Patient Patient Learns Best By: Verbal Instruction Factors Affecting Learning: None Physical Limitations Affecting Learning: None Learning Response: Procedure: Diagnostic Cath with Intervention Pre procedure education topics: Arrival time/NPO Status/Medications/Travel Instructions/Restrictions Patient/Family Response Evaluation: Verbalizes understanding Follow Up Plan and Medication: As directed by physician Instruction/Supplemental Material Given: Cardiac catheterization instructions, procedure information, hospital information, hotel information. Instructed By Sanna Curtis RN. In Department of CARDIOLOGY. documented in this encounter [facility] 04-03-2024 Progress note Formatting of t his note might be different from the original. Please find your blood tests. The bilirubin and gucuose and alkaline phosphatase aremildly elevated. They seem similar to prior but please do discuss this with your primary care. Otherwise the labs looks good [facility] 04-03-2024 Miscellaneous Notes Please find your blood tests. The bilirubin and gucuose and alkaline phosphatase aremildly elevated. They seem similar to prior but please do discuss this with your primary care. Otherwise the labs looks good documented in this encounter [facility] 03-31-2024 Note HNO ID: [id number] Author: MAYTE AHN MD Service: ? Author Type: Physician Type: Progress Notes Filed: 03/31/2024 18:11 Note Text: CCTA with severe TVD and mild left main I call the patient to explain and outline recommendations for next steps. Given severe TVD I favor cath to evaluate anatomy with consideration for CABG if significant diease vs stent. He is agreeing with plan Plan Cath Bloods pre cath. Advised to call the office to arrange [facility] 03-31-2024 History of Present illness Narrative Images from the original note were not included. [facility] [place] [facility] Department of Cardiovascular Medicine SECTION OF INTERVENTIONAL CARDIOLOGY OUTPATIENT VISIT DATE March 31, 2024 OUTPATIENT VISIT TYPE Followup PRIMARY CARE PHYSICIAN: Beverley Owens, CHRIS [address] [place] [address] CHIEF COMPLAINT: Followup HISTORY OF PRESENT ILLNESS: Mr. Todd is a 63 year old male with a history of hypertension, hypercholesterolemia, and diabetes mellitus, presenting for evaluation following a recent hospitalization for dyspnea and an abnormal stress. Patient is a 63-year-old male with a history of abnromal stress hypertension, and hyperlipidemia, presenting for follow-up. He reports no dyspnea, chest discomfort, palpitations, or syncope during daily activities such as walking around the house, climbing stairs, grocery shopping, or performing housework. He does experience occasional dizziness when rising suddenly from a supine position, which he attributes to his medications. He denies any bruising or bleeding. He has not been hospitalized since his last visit. He is seeking clearance to resume exercise, specifically using the treadmill at his gym. He has not yet started this activity and is currently only walking around his house. He had a CT scan performed this morning, but the results are not yet available. We review the recent lab results which showed elevated calcium, bilirubin, and alkaline phosphatase levels, with normal ALT and AST. His Lp(a) level was 120 mg/dL, and his LDL was not at the target level. I adivse he discuss with PCP regarding BR, calcium and alkaline phosphatase He has a history of using smokeless tobacco and is interested in using nicotine patches to quit. He consumes alcohol rarely. PAST MEDICAL HISTORY Diagnosis Date Abnormal stress test Cardiomegaly Noted on CXR with EF on echo at the lower limits of normal Diabetes mellitus (HCC) HLD (hyperlipidemia) HTN (hypertension) Skin cancer History reviewed. No pertinent surgical history. SOCIAL HISTORY Social History Tobacco Use Smoking status: Never Smokeless tobacco: Current Types: Snuff Vaping Use Vaping status: Never Used Substance Use Topics Alcohol use: Yes Comment: rare Drug use: Not Currently FAMILY HISTORY Problem Relation Age of Onset Coronary Artery Disease Mother 75 stents Heart Attack Mother 75 Hypertension Mother Stroke Mother Cancer Father No Known Problems Brother No Known Problems Sister ALLERGIES: ALLERGIES Allergen Reactions Ozempic [Semaglutid* Other: See Comments dizziness Spironolactone Other: See Comments Breast tenderness MEDICATIONS: Current Outpatient Medications Medication Sig amLODIPine (NORVASC) 5 mg tablet Take 5 mg by mouth once daily. aspirin, enteric coated (ASPIRIN, ENTERIC COATED) 81 mg EC tablet Take 81 mg by mouth once daily. atorvastatin (LIPITOR) 20 mg tablet Take 20 mg by mouth once daily. carvedilol (COREG) 25 mg tablet Take 25 mg by mouth two times a day with meals. eplerenone (INSPRA) 50 mg tablet Take 50 mg by mouth two times a day. isosorbide mononitrate ER (IMDUR) 60 mg 24 hr tablet Take 60 mg by mouth once daily. losartan (COZAAR) 100 mg tablet Take 100 mg by mouth once daily. MOUNJARO 2.5 mg/0.5 mL pen injector Inject 5 mg subcutaneously one time a week. nitroglycerin sublingual (NITROQUICK) 0.4 mg SL tablet Dissolve 0.4 mg under the tongue every 5 minutes as needed. nitroglycerin sublingual (NITROQUICK) 0.3 mg SL tablet Dissolve 1 tablet under the tongue one time only for 1 dose. To be administered in Radiology for CTA exam metoprolol tartrate, short acting, (LOPRESSOR) 50 mg tablet Take one 50 mg tablet the evening prior to the CTA examination, take another 50 mg tablet the morning of the CTA examination. No current facility-administered medications for this visit. REVIEW OF SYSTEMS: [facility] PHYSICAL EXAMINATION: 03/31/24 0848 BP: 146/88 BP Site: Right Arm BP Position: Sitting BP Cuff Size: Large Adult Pulse: 86 Weight: 96.6 kg (213 lb) Height: 162.6 cm (5' 4 ) Body mass index is 36.56 kg/m . General: Well appearing, in no acute distress, speaking in complete sentences.-but overweight Head/Eyes: Grossly normal Lungs: Clear to auscultation and no rales with good effort Heart: Regular rhythm,S1, S2 normal, no S3, no S4, no rub and no murmur. Abdomen: Soft, nontender, bowel sounds normal, no palpable organomegaly, no bruits. Extremities: trace peripheral edema Musculoskeletal: Normal gait and ambulation Neuro: Oriented to time, place and person Latest Reference Range & Units 01/29/24 12:34 Sodium 136 - 144 mmol/L 142 Potassium 3.7 - 5.1 mmol/L 4.9 Chloride 98 - 107 mmol/L 103 CO2 22 - 30 mmol/L 25 BUN 9 - 24 mg/dL 16 Creatinine 0.73 - 1.22 mg/dL 1.19 Glucose 74 - 99 mg/dL 117 (H) Protein, Total 6.3 - 8.0 g/dL 6.8 Calcium 8.5 - 10.2 mg/dL 10.7 (H) Albumin 3.9 - 4.9 g/dL 4.9 Bilirubin, Total 0.2 - 1.3 mg/dL 1.9 (H) Alkaline Phosphatase 38 - 113 U/L 133 (H) ALT 10 - 54 U/L 32 AST 14 - 40 U/L 23 Anion Gap 8 - 15 mmol/L 14 NT Pro BNP <125 pg/mL <36 eGFR >=60 mL/min/1.73m 69 Cholesterol, Total <200 mg/dL 137 Triglyceride <150 mg/dL 110 Fasting Time hrs 5 HDL Cholesterol >39 mg/dL 36 (L) LDL Cholesterol <100 mg/dL 79 VLDL Cholesterol <30 mg/dL 22 TC:HDL Ratio <5.10 3.81 LDL:HDL Ratio <2.54 2.19 Non HDL Cholesterol <130 mg/dL 101 Lipoprotein (a) <30 mg/dL 120 (H) (H): Data is abnormally high (L): Data is abnormally low IMPRESSION: Mr. Todd is a 63 year old male with hypertension presenting with acute pulmonary edema in the setting of hypertensive crisis from not taking medications. His echo showed LVH and borderline normal LV function . He also had an abnormal stress. CCTA done and results pending # Hypertension, unspecified type (I10) Previously poorly controlled, leading to hypertensive urgency and dyspnea during hospitalization in October. Last visit was controlled but today is elevated. But home readings are all in the 104-120 range and diastolics generally < 80. Will monitor for now # Abnormal stress test (R94.39) Nuclear stress test showed ischemia in the inferior wall with large gut uptake which can reduce accuracy. CCTA done (as was preference by patient) and results pending. No symptoms of chest pain or [place] and on aspirin and stain # Cardiomegaly (I51.7) Echocardiogram during hospitalization showed borderline weak heart muscle. No current symptoms of dyspnea or chest pain. BNP normal and now without shortness of breath. Will repeat echocardiogram in 12 months. # Controlled type 2 diabetes mellitus without complication, with long-term current use of insulin (HCC) (E11.9) Monitored by PCP # High cholesterol (E78.00) HDL of 41 and LDL of 73 and TG of 119 on labs. HDL 36 and LDL o 79 and TG of 110. LP (a) elevated. We discuss this and I advise family screening and aggressive control of LDL. Advised to increase atorvastatin to 40 mg. # Overweight (E66.3) On Monjaro and Encouraged regular physical activity, such as walking, to aid in weight management. PLAN AND RECOMMENDATIONS: Continue the current medications but increase the atorvastatin to 40 mg daily I will check the CT scan results and get back to you To do blood testing before next visiit To see me in 6 months Increase ambulation as tolerated with a goal to do moderate activity 30 minutes a day 5 days a week Work on weight loss Follow a heart healthy diet, rich in fruits and vegetables, fish and whole grains. Limited the amount of processed foods, sugary drinks, fried foods, red meat, pork, and salt CONTACT INFORMATION: Mayte Ahn MD, FACC, [facility], [facility] English As A Second Language Instructor and Chemistry Department Chair, Acute Coronary Care [facility], Heart, Vascular [facility] [place] [address] [place] [address], [id number] [place] [id number] documented in this encounter [facility] 03-31-2024 Note HNO ID: [id number] Author: MAYTE AHN MD Service: ? Author Type: Physician Type: Progress Notes Filed: 03/31/2024 09:15 Note Text: Heart, Vascular and Thor[facility] [place] Myles Go Department of Cardiovascular Medicine SECTION OF INTERVENTIONAL CARDIOLOGY OUTPATIENT VISIT DATE March 31, 2024 OUTPATIENT VISIT TYPE Followup PRIMARY CARE PHYSICIAN: Beverley Owens NP [address] [place] [address] CHIEF COMPLAINT: Followup HISTORY OF PRESENT ILLNESS: Mr. Todd is a 63 year old male with a history of hypertension, hypercholesterolemia, and diabetes mellitus, presenting for evaluation following a recent hospitalization for dyspnea and an abnormal stress. Patient is a 63-year-old male with a history of abnromal stress hypertension, and hyperlipidemia, presenting for follow-up. He reports no dyspnea, chest discomfort, palpitations, or syncope during daily activities such as walking around the house, climbing stairs, grocery shopping, or performing housework. He does experience occasional dizziness when rising suddenly from a supine position, which he attributes to his medications. He denies any bruising or bleeding. He has not been hospitalized since his last visit. He is seeking clearance to resume exercise, specifically using the treadmill at his gym. He has not yet started this activity and is currently only walking around his house. He had a CT scan performed this morning, but the results are not yet available. We review the recent lab results which showed elevated calcium, bilirubin, and alkaline phosphatase levels, with normal ALT and AST. His Lp(a) level was 120 mg/dL, and his LDL was not at the target level. I adivse he discuss with PCP regarding BR, calcium and alkaline phosphatase He has a history of using smokeless tobacco and is interested in using nicotine patches to quit. He consumes alcohol rarely. PAST MEDICAL HISTORY Diagnosis Date Abnormal stress test Cardiomegaly Noted on CXR with EF on echo at the lower limits of normal Diabetes mellitus (HCC) HLD (hyperlipidemia) HTN (hypertension) Skin cancer History reviewed. No pertinent surgical history. SOCIAL HISTORY Social History Tobacco Use Smoking status: Never Smokeless tobacco: Current Types: Snuff Vaping Use Vaping status: Never Used Substance Use Topics Alcohol use: Yes Comment: rare Drug use: Not Currently FAMILY HISTORY Problem Relation Age of Onset Coronary Artery Disease Mother 75 stents Heart Attack Mother 75 Hypertension Mother Stroke Mother Cancer Father No Known Problems Brother No Known Problems Sister ALLERGIES: ALLERGIES Allergen Reactions Ozempic [Semaglutid* Other: See Comments dizziness Spironolactone Other: See Comments Breast tenderness MEDICATIONS: Current Outpatient Medications Medication Sig amLODIPine (NORVASC) 5 mg tablet Take 5 mg by mouth once daily. aspirin, enteric coated (ASPIRIN, ENTERIC COATED) 81 mg EC tablet Take 81 mg by mouth once daily. atorvastatin (LIPITOR) 20 mg tablet Take 20 mg by mouth once daily. carvedilol (COREG) 25 mg tablet Take 25 mg by mouth two times a day with meals. eplerenone (INSPRA) 50 mg tablet Take 50 mg by mouth two times a day. isosorbide mononitrate ER (IMDUR) 60 mg 24 hr tablet Take 60 mg by mouth once daily. losartan (COZAAR) 100 mg tablet Take 100 mg by mouth once daily. MOUNJARO 2.5 mg/0.5 mL pen injector Inject 5 mg subcutaneously one time a week. nitroglycerin sublingual (NITROQUICK) 0.4 mg SL tablet Dissolve 0.4 mg under the tongue every 5 minutes as needed. nitroglycerin sublingual (NITROQUICK) 0.3 mg SL tablet Dissolve 1 tablet under the tongue one time only for 1 dose. To be administered in Radiology for CTA exam metoprolol tartrate, short acting, (LOPRESSOR) 50 mg tablet Take one 50 mg tablet the evening prior to the CTA examination, take another 50 mg tablet the morning of the CTA examination. No current facility-administered medications for this visit. REVIEW OF SYSTEMS: ROS PHYSICAL EXAMINATION: 03/31/24 0848 BP: 146/88 BP Site: Right Arm BP Position: Sitting BP Cuff Size: Large Adult Pulse: 86 Weight: 96.6 kg (213 lb) Height: 162.6 cm (5' 4 ) Body mass index is 36.56 kg/m?. General: Well appearing, in no acute distress, speaking in complete sentences.-but overweight Head/Eyes: Grossly normal Lungs: Clear to auscultation and no rales with good effort Heart: Regular rhythm,S1, S2 normal, no S3, no S4, no rub and no murmur. Abdomen: Soft, nontender, bowel sounds normal, no palpable organomegaly, no bruits. Extremities: trace peripheral edema Musculoskeletal: Normal gait and ambulation Neuro: Oriented to time, place and person Latest Reference Range AND Units 01/29/24 12:34 Sodium 136 - 144 mmol/L 142 Potassium 3.7 - 5.1 mmol/L 4.9 Chloride (more content not included)... [facility] 03-31-2024 History of Present illness Narrative Radiology Service Progress Note DATE OF SERVICE: March 31, 2024 TIME: 7:19 AM PATIENT WEIGHT: 250LBS PATIENT IDENTITY VERIFICATION COMPLETED USING TWO (2) STANDARD IDENTIFIERS: Name and Date of confirmed by patient verbally and Name and Date of confirmed by identification band. FALL SCREENING: Has the patient had 2 falls in the last year or 1 fall with injury or currently using an Ambulatory Assistive Device (Walker, Cane, Wheelchair, Crutches, etc.)? No PATIENT GENDER DATA: Assigned male at ALLERGIES: Reviewed and unchanged CONTRAST ALLERGY: No EXAM: CT -CONTRAST INDUCED NEPHROPATHY RISK FACTORS: Patient age > 60 years and Diabetic: Yes. Current medication(s): mounjaro. Patient currently has insulin pump?: No. CREATININE: Creatinine Date Value Ref Range Status 01/29/2024 1.19 0.73 - 1.22 mg/dL Final Creatinine (POCT) Date Value Ref Range Status 03/31/2024 1.20 0.7 - 1.4 mg/dL Final eGFR (POCT) Date Value Ref Range Status 03/31/2024 >60 mL/min/1.73 m2 Final P.O.C.T. RESULTS: POC done: Yes, See Lab Tab March 31, 2024 TREATMENT: No Hydration needed. IV SITE: Ambulatory: A peripheral IV was started in the Right antecubital site with a Angio cath: 18 gauge. IV SITE APPEARANCE: Clean,Dry and Intact Radiology Service Progress Note PATIENT NAME: Albin Todd DATE OF SERVICE: March 31, 2024 TIME: 7:20 AM PATIENT IDENTITY VERIFICATION COMPLETED USING TWO (2) STANDARD IDENTIFIERS: Name and Date of confirmed by patient verbally and Name and Date of confirmed by identification band. PATIENT GENDER DATA: Assigned male at PATIENT RELEVANT IMPLANT DATA REVIEWED: Not Applicable ALLERGIES: Reviewed and unchanged MEDICATIONS REVIEWED: YES PROCEDURE TYPE: CT: Beta Blocking and CT: NTG SL PATIENT SCREENING: CHF: No, Heart Block: Yes, Aortic Stenosis: No, Aortic Insufficiency: No, Asthmatic/Bronchospastic Disease: No, IV Beta Blocking (Lopressor/Metoprolol Tartrate): No, and Medications that may enhance heart rate, slowing the effect of betablockers or calcium channel blockers: No Aortic Stenosis: No, Aortic Insufficiency: No, Constrictive Pericarditis: No, Hypertrophic/Restrictive Cardiomyopathy: No, Use of Phosphodiesterase - 5 Inhibitors: No, and Stress test planned for later today: No IV SITE: Ambulatory: A peripheral IV was started in the Right antecubital site with a Angio cath: 18 gauge. PERIPHERAL IV ACCESS: Discontinued CARDIAC MEDICATIONS: Nitroglycerin 0.3 mg SL given PATIENT DISCHARGED TO: Home/Self Care SIGNED BY: Mora Harrington RN March 31, 2024 7:20 AM PATIENT EDUCATION RADIOLOGY TOPIC: Procedure/Surgery: CTA coronary READINESS TO LEARN COGNITIVE ABILITY: Alert and oriented MOTIVATION TO LEARN: Eager FAMILY SUPPORT: None - Unavailable/disinterested INSTRUCTION PROVIDED TO: Patient PATIENT LEARNS BEST BY: Individual Instruction FACTORS AFFECTING LEARNING: None PHYSICAL LIMITATIONS AFFECTING LEARNING: None LEARNING RESPONSE Procedure: Angio Procedures: Radiology Procedures: CTA coronary METHOD OF INSTRUCTION: Individual instruction PATIENT / FAMILY RESPONSE: Verbalizes understanding of: Pre Procedure Instructions Post Procedure Instructions FOLLOW-UP PLAN: Complete - No need for follow-up SUPPLEMENTAL MATERIAL: NA REFERRAL (RECOMMENDATION): None Electronically Signed By Mora Harrington RN SIGNATURE: Mora Harrington RN PATIENT NAME: Albin Todd DATE: March 31, 2024 TIME: 7:19 AM Radiology Service Progress Note PATIENT NAME: Albin Todd DATE OF SERVICE: March 31, 2024 TIME: 8:26 AM PATIENT IDENTITY VERIFICATION COMPLETED USING TWO (2) IDENTIFIERS: Name and Date of confirmed by patient verbally and Name and Date of confirmed by identification band. FALL SCREENING: Has the patient had 2 falls in the last year or 1 fall with injury or currently using an Ambulatory Assistive Device (Walker, Cane, Wheelchair, Crutches, etc.)? No PATIENT GENDER DATA: Assigned male at PATIENT RELEVANT IMPLANT DATA REVIEWED: Yes PATIENT PRESENTS WITH AN IMPLANTABLE OR ATTACHED PIANO TUNER: No RADIOLOGY DEPARTMENT: CT; Exam(s) Completed: Cardiac PERIPHERAL IV DATA: Site assessment: Clean,Dry and Intact, Site disposition Discontinued SIGNED BY: CALVIN Mccarthy) March 31, 2024 8:26 AM documented in this encounter [facility] 03-31-2024 Note HNO ID: [id number] Author: ESPERANZA JEFFERS RT(R) Service: Radiology Author Type: Technologist Type: Progress Notes Filed: 03/31/2024 08:27 Note Text: Radiology Service Progress Note PATIENT NAME: Albin Todd DATE OF SERVICE: March 31, 2024 TIME: 8:26 AM PATIENT IDENTITY VERIFICATION COMPLETED USING TWO (2) IDENTIFIERS: Name and Date of confirmed by patient verbally and Name and Date of confirmed by identification band. FALL SCREENING: Has the patient had 2 falls in the last year or 1 fall with injury or currently using an Ambulatory Assistive Device (Walker, Cane, Wheelchair, Crutches, etc.)? No PATIENT GENDER DATA: Assigned male at PATIENT RELEVANT IMPLANT DATA REVIEWED: Yes PATIENT PRESENTS WITH AN IMPLANTABLE OR ATTACHED PIANO TUNER: No RADIOLOGY DEPARTMENT: CT; Exam(s) Completed: Cardiac PERIPHERAL IV DATA: Site assessment: Clean,Dry and Intact, Site disposition Discontinued SIGNED BY: RT Shari(R) March 31, 2024 8:26 AM [facility] 03-31-2024 Note HNO ID: [id number] Author: MORA HARRINGTON RN Service: Radiology Author Type: Registered Nurse Type: Progress Notes Filed: 03/31/2024 07:39 Note Text: Radiology Service Progress Note DATE OF SERVICE: March 31, 2024 TIME: 7:19 AM PATIENT WEIGHT: 250LBS PATIENT IDENTITY VERIFICATION COMPLETED USING TWO (2) STANDARD IDENTIFIERS: Name and Date of confirmed by patient verbally and Name and Date of confirmed by identification band. FALL SCREENING: Has the patient had 2 falls in the last year or 1 fall with injury or currently using an Ambulatory Assistive Device (Walker, Cane, Wheelchair, Crutches, etc.)? No PATIENT GENDER DATA: Assigned male at ALLERGIES: Reviewed and unchanged CONTRAST ALLERGY: No EXAM: CT -CONTRAST INDUCED NEPHROPATHY RISK FACTORS: Patient age > 60 years and Diabetic: Yes. Current medication(s): mounjaro. Patient currently has insulin pump?: No. CREATININE: Creatinine Date Value Ref Range Status 01/29/2024 1.19 0.73 - 1.22 mg/dL Final Creatinine (POCT) Date Value Ref Range Status 03/31/2024 1.20 0.7 - 1.4 mg/dL Final eGFR (POCT) Date Value Ref Range Status 03/31/2024 >60 mL/min/1.73 m2 Final P.O.C.T. RESULTS: POC done: Yes, See Lab Tab March 31, 2024 TREATMENT: No Hydration needed. IV SITE: Ambulatory: A peripheral IV was started in the Right antecubital site with a Angio cath: 18 gauge. IV SITE APPEARANCE: Clean,Dry and Intact Radiology Service Progress Note PATIENT NAME: Albin Todd DATE OF SERVICE: March 31, 2024 TIME: 7:20 AM PATIENT IDENTITY VERIFICATION COMPLETED USING TWO (2) STANDARD IDENTIFIERS: Name and Date of confirmed by patient verbally and Name and Date of confirmed by identification band. PATIENT GENDER DATA: Assigned male at PATIENT RELEVANT IMPLANT DATA REVIEWED: Not Applicable ALLERGIES: Reviewed and unchanged MEDICATIONS REVIEWED: YES PROCEDURE TYPE: CT: Beta Blocking and CT: NTG SL PATIENT SCREENING: CHF: No, Heart Block: Yes, Aortic Stenosis: No, Aortic Insufficiency: No, Asthmatic/Bronchospastic Disease: No, IV Beta Blocking (Lopressor/Metoprolol Tartrate): No, and Medications that may enhance heart rate, slowing the effect of betablockers or calcium channel blockers: No Aortic Stenosis: No, Aortic Insufficiency: No, Constrictive Pericarditis: No, Hypertrophic/Restrictive Cardiomyopathy: No, Use of Phosphodiesterase - 5 Inhibitors: No, and Stress test planned for later today: No IV SITE: Ambulatory: A peripheral IV was started in the Right antecubital site with a Angio cath: 18 gauge. PERIPHERAL IV ACCESS: Discontinued CARDIAC MEDICATIONS: Nitroglycerin 0.3 mg SL given PATIENT DISCHARGED TO: Home/Self Care SIGNED BY: Mora Harrington RN March 31, 2024 7:20 AM PATIENT EDUCATION RADIOLOGY TOPIC: Procedure/Surgery: CTA coronary READINESS TO LEARN COGNITIVE ABILITY: Alert and oriented MOTIVATION TO LEARN: Eager FAMILY SUPPORT: None - Unavailable/disinterested INSTRUCTION PROVIDED TO: Patient PATIENT LEARNS BEST BY: Individual Instruction FACTORS AFFECTING LEARNING: None PHYSICAL LIMITATIONS AFFECTING LEARNING: None LEARNING RESPONSE Procedure: Angio Procedures: Radiology Procedures: CTA coronary METHOD OF INSTRUCTION: Individual instruction PATIENT / FAMILY RESPONSE: Verbalizes understanding of: Pre Procedure Instructions Post Procedure Instructions FOLLOW-UP PLAN: Complete - No need for follow-up SUPPLEMENTAL MATERIAL: NA REFERRAL (RECOMMENDATION): None Electronically Signed By Mora Harrington RN SIGNATURE: Mora Harrington RN PATIENT NAME: Albin Todd DATE: March 31, 2024 TIME: 7:19 AM [facility] 01-29-2024 Instructions Mayte Ahn MD - 01/29/2024 11:22 AM EST We discussed your recent hospitalization and the reports of the echo findings - You were hospitalized in October due to difficulty breathing, which was determined to be caused by extremely high blood pressure (hypertensive urgency). - An echocardiogram showed that your heart muscle was borderline weak. - You were prescribed medications to manage your blood pressure and cholesterol, which are currently well-controlled. - I would continue the current medications and repeat an echo in 6-12 months We discussed the abnormal stress test and the next steps for evaluating the potential blockage in your heart: - You have two options for further evaluation: - A CT scan to look at the arteries of the heart. This is a non-invasive test that can show if there are any blockages. - A cardiac catheterization (angiogram), which is a more invasive test that involves inserting a catheter into an artery to directly visualize the heart's arteries and check for blockages. - Both options have pros and cons. The CT scan is less invasive but may not be as definitive. The cardiac catheterization is more definitive but carries a small risk of complications. - You decided to proceed with a CTA. We will schedule this We discussed your lifestyle and exercise: - Continue your current level of physical activity, such as walking. - Maintain a healthy diet to help manage your blood pressure, cholesterol, and diabetes. Please let me know if you have any questions or concerns about your care plan. PLAN AND RECOMMENDATIONS: Continue the current medications To do a CT scan To do blood testinhg Increase ambulation as tolerated with a goal to do moderate activity 30 minutes a day 5 days a week Work on weight loss Follow a heart healthy diet, rich in fruits and vegetables, fish and whole grains. Limited the amount of processed foods, sugary drinks, fried foods, red meat, pork, and salt CONTACT INFORMATION: Mayte Ahn MD, [facility], [facility], [facility] English As A Second Language Instructor and Chemistry Department Chair, Acute Coronary Care [facility], Heart, Vascular and Thoracic [place] [address] [place] [address], [id number] [place] [id number] documented in this encounter [facility] 01-29-2024 Note HNO ID: [id number] Author: MAYTE AHN MD Service: ? Author Type: Physician Type: Progress Notes Filed: 01/29/2024 17:38 Note Text: Reviewed ECG NSR and normal ECG [facility] 01-29-2024 History of Present illness Narrative Reviewed ECG NSR and normal ECG Images from the original note were not included. Heart, Vascular and Thoracic [place] Myles Go Department of Cardiovascular Medicine SECTION OF INTERVENTIONAL CARDIOLOGY OUTPATIENT VISIT DATE 01/29/2024 OUTPATIENT VISIT TYPE NEW PRIMARY CARE PHYSICIAN: Beverley Owens NP [address] [facility] [address] [place] [address] REFERRING PHYSICIAN: No referring provider defined for this encounter. CHIEF COMPLAINT: To assume care and for abnormal stress HISTORY OF PRESENT ILLNESS: Mr. Todd is a 63 year old male who presents today to discuss an abnormal stress test Patient is a 63-year-old male with a history of hypertension, hypercholesterolemia, and diabetes mellitus, presenting for evaluation following a recent hospitalization for dyspnea and an abnormal stress. In October, he experienced acute dyspnea for a few hours, prompting an ED visit. During this visit, he was found to have severely elevated blood pressure, reportedly around 230 mmHg systolic. He admits to non-adherence with his antihypertensive medications at that time. He was treated with a diuretic and underwent a chest X-ray and echocardiogram, which revealed borderline left ventricular function. He was observed overnight and discharged the following afternoon. Subsequently, his primary care physician ordered a nuclear stress test, which he completed in two sessions due to concerns about chest wall thickness. The test reportedly suggested a possible inferior wall defect, raising suspicion for coronary artery disease. He denies current dyspnea, chest pain, or discomfort. He reports occasional postprandial indigestion characterized by burping, without associated pain. He notes mild leg swelling after prolonged sitting or standing. He is able to perform activities of daily living without difficulty and engages in regular walking. NURSING INTAKE: The patient is a 63 year old male from [place], [place] here today for cardiovascular evaluation. In October he was having a hard time catching his breath, went to the ER and was admitted for high blood pressure and diuresis. At his follow up his PCP ordered a stress test which was abnormal. He denies chest pain and SOB. He has some lightheaded/dizziness with position changes and some LE swelling in his feet He has a medical history significant for: DM, HTN, CHF He reports the following symptoms lightheadedness, edema. He denies the following symptoms chest pain, SOB, palpitations, syncope, coughing, wheezing He follows a regular diet. He does not exercise. PAST MEDICAL HISTORY Diagnosis Date Abnormal stress test Cardiomegaly Noted on CXR with EF on echo at the lower limits of normal Diabetes mellitus (HCC) HLD (hyperlipidemia) HTN (hypertension) Skin cancer History reviewed. No pertinent surgical history. SOCIAL HISTORY Social History Tobacco Use Smoking status: Never Smokeless tobacco: Current Types: Snuff Vaping Use Vaping status: Never Used Substance Use Topics Alcohol use: Yes Comment: rare Drug use: Not Currently FAMILY HISTORY Problem Relation Age of Onset Coronary Artery Disease Mother 75 stents Heart Attack Mother 75 Hypertension Mother Stroke Mother Cancer Father No Known Problems Brother No Known Problems Sister ALLERGIES: ALLERGIES Allergen Reactions Ozempic [Semaglutid* Other: See Comments dizziness Spironolactone Other: See Comments Breast tenderness MEDICATIONS: Current Outpatient Medications Medication Sig amLODIPine (NORVASC) 5 mg tablet Take 5 mg by mouth once daily. aspirin, enteric coated (ASPIRIN, ENTERIC COATED) 81 mg EC tablet Take 81 mg by mouth once daily. atorvastatin (LIPITOR) 20 mg tablet Take 20 mg by mouth once daily. carvedilol (COREG) 25 mg tablet Take 25 mg by mouth two times a day with meals. eplerenone (INSPRA) 50 mg tablet Take 50 mg by mouth two times a day. isosorbide mononitrate ER (IMDUR) 60 mg 24 hr tablet Take 60 mg by mouth once daily. losartan (COZAAR) 100 mg tablet Take 100 mg by mouth once daily. MOUNJARO 2.5 mg/0.5 mL pen injector Inject 5 mg subcutaneously one time a week. nitroglycerin sublingual (NITROQUICK) 0.4 mg SL tablet Dissolve 0.4 mg under the tongue every 5 minutes as needed. furosemide (LASIX) 20 mg tablet Take 20 mg by mouth as needed. No current facility-administered medications for this visit. REVIEW OF SYSTEMS: Review of Systems Constitutional: Negative for chills, weight gain and weight loss. HENT: Negative for hearing loss. Eyes: Negative for visual disturbance. Cardiovascular: Positive for leg swelling. Negative for palpitations, paroxysmal nocturnal dyspnea and syncope. Respiratory: Negative for cough, shortness of breath, sleep disturbances due to breathing and wheezing. Endocrine: Negative for cold intolerance, heat intolerance, polydipsia, polyphagia and polyuria. Skin: Negative for rash and suspicious lesions. Musculoskeletal: Negative for joint pain and joint swelling. Gastrointestinal: Negative for abdominal pain and dysphagia. Genitourinary: Positive for nocturia. Negative for dysuria and frequency. Neurological: Positive for dizziness and light-headedness. Negative for headaches. PHYSICAL EXAMINATION: 01/29/24 1114 01/29/24 1115 BP: 144/82 127/75 BP Site: Left Arm Right Arm Pulse: 79 Resp: 18 SpO2: 93% Weight: 96.6 kg (213 lb) Height: 162.6 cm (5' 4 ) Body mass index is 36.56 kg/m . General: Well appearing, in no acute distress, speaking in complete sentences.-but overweight Head/Eyes: Grossly normal Neck: No jugular venous distention, no carotid bruits, Lungs: Clear to auscultation and no rales with good effort Heart: Regular rhythm,S1, S2 normal, no S3, no S4, no rub and no murmur. Abdomen: Soft, nontender, bowel sounds normal, no palpable organomegaly, no bruits. Extremities: trace peripheral edema Pulses: +2 distal pulses Musculoskeletal: Normal gait and ambulation Neuro: Oriented to time, place and person CARDIOVASCULAR MEDICINE TESTING: All cardiovascular Testing: Electrocardiogram: SR with first degree AV block 03/07/17 Exercise Stress ECG (without imaging): Negative treadmill exercise test for ECG changes Low risk stress test Stress Findings The patient exercised following the Jose protocol. reaching stage 2. The peak HR was 152, which is 92% of the patient s maximum predicted heart rate.The patient achieved the target heart rate. The test was stopped because of fatigue. No angina was experienced. ECG Baseline ECG indicates sinus rhythm. of 0 mm was noted during stressThere was no ST segment deviation noted during stress. Arrhythmias during stress: PVC. PVC's were rare. The stress ECG was negative. The calculated Carney Treadmill Score of 6 represents a low risk only with regards to the exercise findings. Indications Indication for study: other. Tech Comments Ambulated with steady gait. No anginal symptoms. Discharged in stable condition. 11/05/23 TTE: 12/14/23 NM Myocardial Perfusion Multi Rest/Stress: 1. Abnormal SPECT Sestamibi myocardial perfusion study. There is a mild intensity, moderate size, reversible defect in the basal inferoseptal wall. This is suggestive of ischemia. 2. Inferoseptal hypokinesis. 3. Normal left ventricular systolic function. LVEF is 52%. PROCEDURE: The patient achieved a workload of [...] TID score 0.94 is within normal limits. Recent Labs: 11/26/23 I have personally reviewed the reports of the Echocardiogram and Stress Test: Nuclear (Non-PET). IMPRESSION: Mr. Todd is a 63 year old male with hypertension presenting with acute pulmonary edema in the setting of hypertensive crisis from not taking medications. His echo showed LVH and borderline normal LV function . He also had an abnormal stress # Hypertension, unspecified type (I10) Previously poorly controlled, leading to hypertensive urgency and dyspnea during hospitalization in October. Currently well-controlled on multiple antihypertensive medications including amlodipine, carvedilol, Inspra, and losartan. Home BP readings range from 110/61 to 135/72 mmHg. # Abnormal stress test (R94.39) Nuclear stress test on showed ischemia in the inferior wall with large gut uptake which can reduce accuracy. We spent some time discussing the implications of the abnormal stress and the potential management options including optimization of medical therapies and monitoring of symptoms, or invasive coronary angiography to define the anatomy and consider stenting or CCTA. I highlight the importance of medical therapy with an antiplatelet and statin to prevent progression of disease. All pros and cons discussed with patient as well as the potential risks of cath and alternative management options. After much deliberation, the patient preferred to proceed with CCTA first. He is on aspirin and stain # Cardiomegaly (I51.7) Echocardiogram during hospitalization showed borderline weak heart muscle. No current symptoms of dyspnea or chest pain. Will check BNP and plan to repeat echocardiogram in 6-12 months. # Controlled type 2 diabetes mellitus without complication, with long-term current use of insulin (HCC) (E11.9) Monitored by PCP # High cholesterol (E78.00) HDL of 41 and LDL of 73 and TG of 119 on labs. Managed with atorvastatin. # Overweight (E66.3) On Monjaro and Encouraged regular physical activity, such as walking, to aid in weight management. PLAN AND RECOMMENDATIONS: Continue the current medications To do a CT scan To do blood testinhg Increase ambulation as tolerated with a goal to do moderate activity 30 minutes a day 5 days a week Work on weight loss Follow a heart healthy diet, rich in fruits and vegetables, fish and whole grains. Limited the amount of processed foods, sugary drinks, fried foods, red meat, pork, and salt To see me once done CONTACT INFORMATION: Mayte Ahn MD, [facility], [facility] English As A Second Language Instructor and Chemistry Department Chair, Acute Coronary Care [facility], Heart, Vascular and [facility] [place] [address] [place] [address], [id number] [place] [id number] documented in this encounter [facility] 01-29-2024 Note HNO ID: [id number] Author: MAYTE AHN MD Service: ? Author Type: Physician Type: Progress Notes Filed: 01/29/2024 17:38 Note Text: Heart, Vascular [facility] Thor[facility] [place] Myles Go Department of Cardiovascular Medicine SECTION OF INTERVENTIONAL CARDIOLOGY OUTPATIENT VISIT DATE 01/29/2024 OUTPATIENT VISIT TYPE NEW PRIMARY CARE PHYSICIAN: Beverley Owens NP [address] [facility] [address] [place] [address] REFERRING PHYSICIAN: No referring provider defined for this encounter. CHIEF COMPLAINT: To assume care and for abnormal stress HISTORY OF PRESENT ILLNESS: Mr. Todd is a 63 year old male who presents today to discuss an abnormal stress test Patient is a 63-year-old male with a history of hypertension, hypercholesterolemia, and diabetes mellitus, presenting for evaluation following a recent hospitalization for dyspnea and an abnormal stress. In October, he experienced acute dyspnea for a few hours, prompting an ED visit. During this visit, he was found to have severely elevated blood pressure, reportedly around 230 mmHg systolic. He admits to non-adherence with his antihypertensive medications at that time. He was treated with a diuretic and underwent a chest X-ray and echocardiogram, which revealed borderline left ventricular function. He was observed overnight and discharged the following afternoon. Subsequently, his primary care physician ordered a nuclear stress test, which he completed in two sessions due to concerns about chest wall thickness. The test reportedly suggested a possible inferior wall defect, raising suspicion for coronary artery disease. He denies current dyspnea, chest pain, or discomfort. He reports occasional postprandial indigestion characterized by burping, without associated pain. He notes mild leg swelling after prolonged sitting or standing. He is able to perform activities of daily living without difficulty and engages in regular walking. NURSING INTAKE: The patient is a 63 year old male from [place], [place] here today for cardiovascular evaluation. In October he was having a hard time catching his breath, went to the ER and was admitted for high blood pressure and diuresis. At his follow up his PCP ordered a stress test which was abnormal. He denies chest pain and SOB. He has some lightheaded/dizziness with position changes and some LE swelling in his feet He has a medical history significant for: DM, HTN, CHF He reports the following symptoms lightheadedness, edema. He denies the following symptoms chest pain, SOB, palpitations, syncope, coughing, wheezing He follows a regular diet. He does not exercise. PAST MEDICAL HISTORY Diagnosis Date Abnormal stress test Cardiomegaly Noted on CXR with EF on echo at the lower limits of normal Diabetes mellitus (HCC) HLD (hyperlipidemia) HTN (hypertension) Skin cancer History reviewed. No pertinent surgical history. SOCIAL HISTORY Social History Tobacco Use Smoking status: Never Smokeless tobacco: Current Types: Snuff Vaping Use Vaping status: Never Used Substance Use Topics Alcohol use: Yes Comment: rare Drug use: Not Currently FAMILY HISTORY Problem Relation Age of Onset Coronary Artery Disease Mother 75 stents Heart Attack Mother 75 Hypertension Mother Stroke Mother Cancer Father No Known Problems Brother No Known Problems Sister ALLERGIES: ALLERGIES Allergen Reactions Ozempic [Semaglutid* Other: See Comments dizziness Spironolactone Other: See Comments Breast tenderness MEDICATIONS: Current Outpatient Medications Medication Sig amLODIPine (NORVASC) 5 mg tablet Take 5 mg by mouth once daily. aspirin, enteric coated (ASPIRIN, ENTERIC COATED) 81 mg EC tablet Take 81 mg by mouth once daily. atorvastatin (LIPITOR) 20 mg tablet Take 20 mg by mouth once daily. carvedilol (COREG) 25 mg tablet Take 25 mg by mouth two times a day with meals. eplerenone (INSPRA) 50 mg tablet Take 50 mg by mouth two times a day. isosorbide mononitrate ER (IMDUR) 60 mg 24 hr tablet Take 60 mg by mouth once daily. losartan (COZAAR) 100 mg tablet Take 100 mg by mouth once daily. MOUNJARO 2.5 mg/0.5 mL pen injector Inject 5 mg subcutaneously one time a week. nitroglycerin sublingual (NITROQUICK) 0.4 mg SL tablet Dissolve 0.4 mg under the tongue every 5 minutes as needed. furosemide (LASIX) 20 mg tablet Take 20 mg by mouth as needed. No current facility-administered medications for this visit. REVIEW OF SYSTEMS: Review of Systems Constitutional: Negative for chills, weight gain and weight loss. HENT: Negative for hearing loss. Eyes: Negative for visual disturbance. Cardiovascular: Positive for leg swelling. Negative for palpitations, paroxysmal nocturnal dyspnea and syncope. Respiratory: Negative for cough, shortness of breath, sleep disturbances due to breathing and w (more content not included)... [facility] 01-28-2024 Telephone encounter Note Pt has two stress tests done 12/12/23 and ; images being pushed. Reports are in Care Everywhere. [facility] 01-28-2024 Miscellaneous Notes Pt has two stress tests done 12/12/23 and ; images being pushed. Reports are in Care Everywhere. documented in this encounter [facility] 01-25-2024 Telephone encounter Note Received outside records from [facility]. Uploaded into scanned documents and EP shared drive. Patient registered and needs Interventional Cardiology appointment for Diagnoses: Abnormal stress test High coronary artery calcium score Atherosclerosis of both carotid arteries -[facility] 955 [facility] 01-25-2024 Miscellaneous Notes Received outside records from [facility]. Uploaded into scanned documents and EP shared drive. Patient registered and needs Interventional Cardiology appointment for Diagnoses: Abnormal stress test High coronary artery calcium score Atherosclerosis of both carotid arteries -[facility] 955 documented in this encounter [facility] 11-04-2024 History of Present illness Narrative Albin Todd is a 62 y.o. male presents with chief complaint of Five-week office visit HPI: HPI Patient was given a script for Tirzepatide. He was instructed to take his Losartan in the evenings, and his Amlodipine in the mornings Patient brought in Home BP log Stress Test in chart - 12/11 and 12/13 A1c is 6.9% today History of Present Illness The patient is a 63-year-old male who presents for evaluation of multiple medical concerns. He is accompanied by an adult female. He received his first dose of Mounjaro last week and has been feeling well since, with the exception of occasional bouts of depression. He has noticed a decrease in his nighttime eating habits. His diet includes celery and other healthy foods. 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 He is not currently under the care of a retail sales merchandiser. His blood pressure was initially in the 170s, but has since improved. He is currently taking amlodipine 10 mg and carvedilol 25 mg. He underwent a Lexiscan stress test, which showed some abnormalities. He is also on a beta-wilder. HISTORIES: PAST MEDICAL HISTORY: No past medical history on file. SURGICAL HISTORY: Past Surgical History: Procedure Laterality Date BASAL CELL CARCINOMA EXCISION 03/2020 on nose OTHER SURGICAL HISTORY N/A 07/2020 negative cologuard SOCIAL HISTORY: Social History Tobacco Use Smokeless tobacco: Current Types: Chew Substance Use Topics Alcohol use: Yes Depression: Not on file FAMILY HISTORY: Family History Problem Relation Name Age of Onset Diabetes Mother Hypertension Mother Heart disease Mother Heart disease Maternal Grandfather MEDICATIONS: Current Outpatient Medications Medication Instructions amLODIPine (NORVASC) 10 mg, Oral, Daily amLODIPine (NORVASC) 5 mg, Oral, Daily aspirin 81 mg, Oral, Daily atorvastatin (LIPITOR) 20 mg, Oral, Nightly carvedilol (COREG) 25 mg, Oral, 2 times daily with meals, Take with food. eplerenone (INSPRA) 50 mg, Oral, 2 times daily losartan (COZAAR) 100 mg, Oral, Nightly [employer] Ultra test strip USE TO TEST DAILY Tirzepatide (Mounjaro) 2.5 MG/0.5ML solution auto-injector INJECT 2.5 MG SUBCUTANEOUSLY ONE TIME PER WEEK ALLERGIES: Allergies Allergen Reactions Ozempic (0.25 Or 0.5 Mg-Dose) [Semaglutide(0.25 Or 0.5mg-Dos)] Dizziness Spironolactone Other Breast tenderness PHYSICAL EXAM: Visit Vitals Smoking Status Never Assessed BP Readings from Last 3 Encounters: 11/22/23 (!) 180/100 11/12/23 160/90 01/25/22 144/82 Wt Readings from Last 3 Encounters: 11/22/23 215 lb 11/12/23 215 lb 01/25/22 218 lb Physical Exam Constitutional: Appearance: Normal appearance. Neck: Vascular: No carotid bruit. Cardiovascular: Rate and Rhythm: Normal rate and regular rhythm. Pulmonary: Effort: Pulmonary effort is normal. Breath sounds: Normal breath sounds. Abdominal: General: Bowel sounds are normal. Palpations: Abdomen is soft. Musculoskeletal: General: No swelling. Neurological: Mental Status: He is alert. Physical Exam Results Laboratory Studies A1c is 6.9. Testing Abnormality on stress test indicating potential blockage of the artery. ASSESSMENT AND PLAN: Assessment & Plan 1. Diabetes Mellitus. His A1c level is elevated at 6.9, indicating poor glycemic control. He was advised to maintain a healthy diet, specifically a Mediterranean diet, and to limit his intake of red meat. He is currently on Mounjaro 2.5 mg, which is not yet at a therapeutic dose. The dose will be increased gradually to avoid gastrointestinal side effects. 2. Hypertension. His blood pressure has improved but remains suboptimal. He is currently on Amlodipine 10 mg and Carvedilol 25 mg. He was advised to continue these medications and monitor his blood pressure regularly. 3. Abnormal stress test The stress test showed some abnormalities, suggesting a possible blockage. A referral to a retail sales merchandiser at [facility] was made for further evaluation. He is anticipated to undergo a heart catheterization to assess and potentially treat any arterial blockages. Imdur was prescribed for daily use until the catheterization procedure. Additionally, nitroglycerin sublingual was prescribed for use in case of chest discomfort, with instructions to seek immediate medical attention if used. 4. High CAC/CAD Prescription for Imdur was given for daily use. Nitroglycerin sublingual was prescribed for use in case of chest discomfort. Diagnosis Plan 1. Abnormal stress test Ambulatory referral to Cardiology isosorbide mononitrate ER (Imdur) 60 MG 24 hr tablet nitroglycerin (Nitrostat) 0.4 MG SL tablet 2. Type 2 diabetes mellitus with other circulatory complication, without long-term current use of insulin ([facility]) POCT Glycated hemoglobin, total Tirzepatide (Mounjaro) 5 MG/0.5ML solution auto-injector 3. High coronary artery calcium score Ambulatory referral to Cardiology isosorbide mononitrate ER (Imdur) 60 MG 24 hr tablet nitroglycerin (Nitrostat) 0.4 MG SL tablet 4. Atherosclerosis of both carotid arteries Ambulatory referral to Cardiology isosorbide mononitrate ER (Imdur) 60 MG 24 hr tablet nitroglycerin (Nitrostat) 0.4 MG SL tablet 5. Hypertensive heart disease with heart failure ([facility]) 6. Class 2 severe obesity due to excess calories with serious comorbidity and body mass index (BMI) of 35.0 to 35.9 in adult ([facility]) This visit was completed by the assistance of DUNG Tripp. Follow-up documented in this encounter [facility] 11-22-2023 History of Present illness Narrative Images from the original note were not included. Albin Todd is a 62 y.o. male presents with chief complaint of BP Follow Up and Medication Check HPI: HPI BP Readings: 11/13/23 at 5:00am 175/90 11/13/2023 at 6:30pm 144/62 11/14/2023 at 5:00am 179/90 11/14/2023 at 9:30pm 127/60 11/15/2023 at 5:00am 180/90 11/15/2023 at 9:00pm 165/77 He brought home BP log. He feels great today. He has not had any headaches or dizziness. History of Present Illness The patient is a 62-year-old male who presents for evaluation of multiple medical concerns. He is accompanied by an adult female. He was previously on Ozempic for diabetes management but experienced dizziness and imbalance, necessitating the use of chairs for support. His insurance no longer covers Ozempic, leading to a switch to Trulicity, which he tolerates well. He has been losing weight, dropping from 235 pounds to 215 pounds. He has also reduced his consumption of sugary drinks, switching from 6 to 8 cans of Pepsi daily to diet tea. He plans to have lab work done at [facility] this Sunday. He has a history of pulmonary edema and congestive heart failure with preserved ejection fraction, attributed to high blood pressure. He reports no chest pain but has difficulty taking deep breaths. He recalls an episode where he had not consumed any liquids for a few hours, and upon lying down, he found himself unable to breathe. He is currently on carvedilol twice daily, losartan and eplerenone in the morning, and amlodipine 10 mg, which he does not have at present. He maintains an active lifestyle, walking frequently at home and work. HISTORIES: PAST MEDICAL HISTORY: No past medical history on file. SURGICAL HISTORY: Past Surgical History: Procedure Laterality Date BASAL CELL CARCINOMA EXCISION 03/2020 on nose OTHER SURGICAL HISTORY N/A 07/2020 negative cologuard SOCIAL HISTORY: Social History Tobacco Use Smokeless tobacco: Current Types: Chew Substance Use Topics Alcohol use: Yes Depression: Not on file FAMILY HISTORY: Family History Problem Relation Name Age of Onset Diabetes Mother Hypertension Mother Heart disease Mother Heart disease Maternal Grandfather MEDICATIONS: Current Outpatient Medications Medication Instructions amLODIPine (NORVASC) 10 mg, Oral, Daily RT aspirin 81 mg, Oral, Daily atorvastatin (LIPITOR) 20 mg, Oral, Daily carvedilol (Coreg) 25 MG tablet TAKE 1 TABLET BY MOUTH TWICE A DAY WITH FOOD chlorthalidone (Hygroton) 25 MG tablet TAKE 1 TABLET BY MOUTH EVERY DAY IN THE MORNING WITH FOOD eplerenone (INSPRA) 50 mg, Oral, 2 times daily losartan (Cozaar) 100 MG tablet TAKE 1 TABLET BY MOUTH EVERY MORNING *APPOINTMENT NEEDED FOR REFILLS* [employer] Ultra test strip USE TO TEST DAILY spironolactone (ALDACTONE) 50 mg, Oral, Daily ALLERGIES: Allergies Allergen Reactions Ozempic (0.25 Or 0.5 Mg-Dose) [Semaglutide(0.25 Or 0.5mg-Dos)] Dizziness Spironolactone Other Breast tenderness PHYSICAL EXAM: Visit Vitals Smoking Status Never Assessed BP Readings from Last 3 Encounters: 11/12/23 160/90 01/25/22 144/82 04/22/21 130/70 Wt Readings from Last 3 Encounters: 11/12/23 215 lb 01/25/22 218 lb 04/22/21 229 lb Physical Exam Constitutional: Appearance: Normal appearance. Neck: Vascular: No carotid bruit. Cardiovascular: Rate and Rhythm: Normal rate and regular rhythm. Pulmonary: Effort: Pulmonary effort is normal. Breath sounds: Normal breath sounds. Abdominal: General: Bowel sounds are normal. Palpations: Abdomen is soft. Musculoskeletal: General: No swelling. Neurological: Mental Status: He is alert. Physical Exam Results Laboratory Studies A1c was above 6.7. Imaging Coronary calcium score was 500. ASSESSMENT AND PLAN: Assessment & Plan 1. Type 2 Diabetes Mellitus. His A1c level was recorded as 6.7 two years ago. A comprehensive discussion was held regarding the benefits of GLP-1 medications, including their role in reducing sugar levels, aiding weight loss, and providing cardiovascular protection. The potential side effects of these medications were also discussed. He was advised to eliminate sugary drinks from his diet and to engage in regular physical activity, such as walking for 15 minutes daily. A prescription for Mounjaro was provided. If his insurance does not cover Mounjaro, Ozempic will be reconsidered. Many benefits of GLP1 therapy discussed, in his case, cardiovascular protection, renal protection, HF, obesity, DM... 2. Hypertension. His coronary calcium score is >500, indicating significant plaque build-up in his arteries. A stress test was recommended to further evaluate his condition. A prescription for amlodipine 5 mg was provided, along with a 90-day refill. He was advised to take losartan at night and amlodipine in the morning. He was also encouraged to monitor his blood pressure at home and report the readings in 1 to 2 weeks. SBP goal <130. 3. Pulmonary Edema. He experienced pulmonary edema due to preserved ejection fraction caused by high blood pressure. The condition was explained as congestive heart failure with preserved ejection fraction. He was advised to continue monitoring his symptoms and to maintain a healthy diet and exercise routine to manage his weight and blood pressure. Diagnosis Plan 1. Type 2 diabetes mellitus with other circulatory complication, without long-term current use of insulin (CMS/HCC) Tirzepatide (Mounjaro) 2.5 MG/0.5ML solution auto-injector 2. Hypertensive heart disease without heart failure (CMS/HCC) amLODIPine (Norvasc) 5 MG tablet 3. High coronary artery calcium score 4. Atherosclerosis of both carotid arteries 5. Hypertensive heart disease with heart failure (CMS/HCC) High complexity. Patient is here for follow up of chronic conditions. I am following Dr Wright's established plan of care for these issues. Dr Wright is remotely available today and is supervising patient care. Follow-up Return in 1 month for follow-up. documented in this encounter [facility] 11-12-2023 History of Present illness Narrative Images from the original note were not included. Albin Todd is a 62 y.o. male presents with chief complaint of Hospital Follow-up HPI: HPI Patient has not been seen since 01/25/22. Hospital gave him new meds and told him to throw away everything he had at home to start fresh. Patient is feeling much better. He brought home BP Log in today. History of Present Illness No data to display HISTORIES: PAST MEDICAL HISTORY: History reviewed. No pertinent past medical history. SURGICAL HISTORY: History reviewed. No pertinent surgical history. SOCIAL HISTORY: Depression: Not on file FAMILY HISTORY: No family history on file. MEDICATIONS: Current Outpatient Medications Medication Instructions amLODIPine (NORVASC) 10 mg, Oral, Daily RT aspirin 81 mg, Oral, Daily atorvastatin (LIPITOR) 20 mg, Oral, Daily buPROPion XL (Wellbutrin XL) 150 MG 24 hr tablet TAKE 1 TABLET BY MOUTH IN THE MORNING carvedilol (Coreg) 25 MG tablet TAKE 1 TABLET BY MOUTH TWICE A DAY WITH FOOD chlorthalidone (Hygroton) 25 MG tablet TAKE 1 TABLET BY MOUTH IN THE MORNING WITH FOOD eplerenone (INSPRA) 50 mg, Oral, Daily furosemide (LASIX) 20 mg, Oral, Daily losartan (Cozaar) 100 MG tablet TAKE 1 TABLET BY MOUTH EVERY MORNING *APPOINTMENT NEEDED FOR REFILLS* [employer] Ultra test strip USE TO TEST DAILY spironolactone (ALDACTONE) 50 mg, Oral, Daily ALLERGIES: No Known Allergies PHYSICAL EXAM: Visit Vitals BP 160/90 (BP Location: Left arm, Patient Position: Sitting) Pulse 78 Ht 5' 5 Wt 215 lb SpO2 97% BMI 35.78 kg/m BSA 2.11 m BP Readings from Last 3 Encounters: 11/12/23 160/90 01/25/22 144/82 04/22/21 130/70 Wt Readings from Last 3 Encounters: 11/12/23 215 lb 01/25/22 218 lb 04/22/21 229 lb Physical Exam Physical Exam Results ASSESSMENT AND PLAN: Assessment & Plan Images from the original note were not included. Subjective Albin Todd is a 62 y.o. male who presents for Hospital Follow-up History of Present Illness The patient presents for evaluation of congestive heart failure. He is accompanied by an adult female. He reports a sudden onset of symptoms, including difficulty breathing, which led him to seek emergency care. His condition improved after receiving treatment in the hospital. He has been experiencing weight loss and has been monitoring his blood pressure at home. He has also made dietary changes, reducing his salt intake and avoiding sugary drinks. He was previously on Ozempic, but discontinued it due to side effects of dizziness and nausea. FAMILY HISTORY His grandmother of congestive heart failure. Review of Systems Objective Blood pressure 160/90, pulse 78, height 5' 5 , weight 215 lb, SpO2 97%. Physical Exam Patient is of short compact build, not in acute distress, and appears well. No jugular venous distension (JVD) in the neck. Heart's apical impulse is nondiffuse. S4 is present. No murmurs detected. Abdomen is obese with rectus abdominis. No abdominal or flank bruits or aneurysm detected. No edema in the extremities. Cognition is normal. Mood and affect are appropriate. Results Laboratory Studies Potassium was 3.2. Long range sugar was 6.2. ALT was 31. Imaging Echocardiogram showed left ventricular hypertrophy with ejection fraction 50 to 55%. Assessment & Plan Diagnosis Plan 1. Pulmonary edema w/congestive heart failure w/preserved LV function (CMS/HCC) subacute due to stopping antiHTN back to baseline consider outpatient stress/imaging although is and has been asymptomatic from cardiac standpoint 2. Diet is high in sugar sodas 3. Hypertensive heart disease without heart failure (CMS/HCC) increase neurohormonal modulater Comment: mild LVH on TTE S4 on exam 4. Screening PSA (prostate specific antigen) 5. Mixed hyperlipidemia (CMS/HCC) 6. Prediabetes A1c 6.2% sugars 130 range hospital 7. High coronary artery calcium score asymptomatic CAC = 532 -- mainly LAD with all arteries involved GXT ( 02/2017) nml 8. Atherosclerosis of both carotid arteries 2017 lost to follow up asymptomatic 9. Morbid obesity (CMS/HCC) 10. Chronic kidney disease, stage 3a (HCC) (CMS/HCC) 1. APE w/ preserved EF He presented with subacute symptoms of shortness of breath and was found to have pulmonary edema / left ventricular hypertrophy with an ejection fraction of 50 to 55% on echocardiogram. His EKG showed sinus tachycardia, and his potassium level was low at 3.2. He has been prescribed Coreg, amlodipine, losartan, and Aldactone. Spironolactone will be replaced with eplerenone due to previous side effects. Lasix will be discontinued. He is advised to monitor his blood pressure at home using a new monitor from [employer] and report the readings. A stress test is recommended to further evaluate his cardiac function. He is advised to maintain a healthy diet, limit salt intake, and reduce sugar consumption. 2. Hypertension. His blood pressure was significantly elevated at 240/120. He has been prescribed Coreg, amlodipine, losartan, and Aldactone. He is advised to monitor his blood pressure at home and report the readings. He is instructed to maintain a healthy diet, limit salt intake, and reduce sugar consumption. 3. Prediabetes. His long-range sugar level was 6.2, indicating prediabetes. He is advised to reduce sugar intake, particularly from sugary drinks like Mountain Dew, and to consume more water and healthier alternatives. Follow-up Return in a couple of weeks for follow-up. documented in this encounter [facility] Healthcare Evaluation note Diagnosis Type 2 diabetes mellitus with other circulatory complication, without long-term current use of insulin (CMS/HCC)- Primary Hypertensive heart disease without heart failure (CMS/HCC) Unspecified hypertensive heart disease without heart failure High coronary artery calcium score Atherosclerosis of both carotid arteries Hypertensive heart disease with heart failure (CMS/HCC) Unspecified hypertensive heart disease with heart failure documented in this encounter [facility] HealthcareEvaluation noteNo assessment information availableSelect [facility] Work Phone: Evaluation note* Diagnosis Abnormal stress test- Primary Other nonspecific abnormal cardiovascular system function study Type 2 diabetes mellitus with other circulatory complication, without long-term current use of insulin (CMS/HCC) High coronary artery calcium score Atherosclerosis of both carotid arteries Hypertensive heart disease with heart failure (CMS/HCC) Unspecified hypertensive heart disease with heart failure Class 2 severe obesity due to excess calories with serious comorbidity and body mass index (BMI) of 35.0 to 35.9 in adult (CMS/HCC) Morbid (severe) obesity due to excess calories (CMS/HCC) Mixed hyperlipidemia ([facility]/HCC) Mixed hyperlipidemia Body mass index (BMI) 35.0-35.9, adult [facility] High coronary artery calcium score- Primary [facility]* Diagnosis Hypertension, unspecified type- Primary Abnormal stress test Other nonspecific abnormal cardiovascular system function study Cardiomegaly Controlled type 2 diabetes mellitus without complication, with long-term current use of insulin ([facility]) High cholesterol Pure hypercholesterolemia Overweight [facility] Diagnosis Pulmonary edema w/congestive heart failure w/preserved LV function (CMS/HCC)- Primary Diet is high in sugar Hypertensive heart disease without heart failure (CMS/HCC) Unspecified hypertensive heart disease without heart failure Screening PSA (prostate specific antigen) Special screening for malignant neoplasm of prostate Mixed hyperlipidemia ([facility]/HCC) Mixed hyperlipidemia Prediabetes Other abnormal glucose High coronary artery calcium score Atherosclerosis of both carotid arteries Morbid obesity (CMS/HCC) Morbid obesity Chronic kidney disease, stage 3a (HCC) ([facility]) [facility] Diagnosis Hypertension, unspecified type- Primary Coronary artery disease involving [place]k coronary artery of [place] heart, unspecified whether angina present SOB (shortness of breath) Shortness of breath [facility] Diagnosis Abnormal stress test Other nonspecific abnormal cardiovascular system function study [facility] Diagnosis Coronary artery disease involving ty[place]k coronary artery of [place] heart, unspecified whether angina present- Primary [facility] Diagnosis High cholesterol- Primary Pure hypercholesterolemia Hypertension, unspecified type Coronary artery disease involving ty[place]k coronary artery of [place] heart, unspecified whether angina present Controlled type 2 diabetes mellitus without complication, unspecified whether intermediate designer insulin use (HCC) [facility]* Diagnosis Type 2 diabetes mellitus with other circulatory complication, without long-term current use of insulin (HCC) Erectile dysfunction, unspecified erectile dysfunction type documented in this encounter [facility] for referral (narrative)* Outpatient Procedure (Routine) - Authorized Specialty Diagnoses / Procedures Referred By Zeeshan jiang Ref[facility] Diagnoses High coronary artery calcium score Procedures ECG COMPLETE ECG ROUTINE ECG W/LEAST 12 LDS W/I&R Mayte Ahn MD [address] [place] [id number] [facility] [place] [id number] Referral ID Status Reason Start Date Expiration Date Visits Requested Visits Authorized [id number] Authorized Auto-Generat ed Referral 01/24/2025 1 1 [facility] for referral (narrative)* Transition of Care (Routine) - Authorized Specialty Diagnoses / Procedures Referred By Zeeshan jiang Referred To Contact HEART [facility] [place] Procedures CARDIOVASCULAR MEDICINE OP FOLLOW UP APPT ORDER Mayte Ahn MD [address] [place] [phone] Phone: tel: fax: [place] [phone] Referral ID Status Reason Start Date Expiration Date Visits Requested Visits Authorized [id number] Authorized PCP Requested Referral 09/28/2024 03/31/2025 1 1 [facility] for referral (narrative)* Transition of Care (Routine) - Authorized Specialty Diagnoses / Procedures Referred By Contdeangelo t Referred To Contact [facility] [place] Procedures CARDIOVASCULAR MEDICINE OP FOLLOW UP APPT ORDER Mayte Ahn MD [address] [place] [phone] Phone: tel: fax: [facility] Vascular [address] [address] Referral ID Status Reason Start Date Expiration Date Visits Requested Visits Authorized [id number] Authorized PCP Requested Referral 11/20/2024 05/21/2025 1 1 [facility] Summary Purpose Family History No Family History Records FoundNo Family History Records FoundNo Family History Records FoundNo Family History Records FoundNo Family History Records FoundNo Family History Records FoundNo Family History Records Found Advance Directives No Advanced Directives Records Found Advance Directive Response Recorded Date/ Time Advance Directives No November 13, 2023 9:21am Chief Complaint and Reason for Visit Chief Complaint I50.1 I50.1 Reason for Referral Specialty Diagnoses / Procedures Referred By Zeeshan jiang Referred To Contact CT IMAGING Diagnoses Abnormal stress test Procedures CTA CORONARY W IVCON CTA HRT CORNRY ART/BYPASS GRFTS CONTRST 3D POST Mayte Ahn MD [phone] [id number] Referral ID Status Reason Start Date Expiration Date Visits Requested Visits Authorized [id number] Pending Review Auto-Generat ed Referral 4 02/27/2025 1 1 Specialty Diagnoses / Procedures Referred By Zeeshan jiang Referred To [facility] Procedures CARDIOVASCULAR MEDICINE OP FOLLOW UP APPT ORDER Mayte Ahn MD [address] [place] [phone] [facility] [place] [address] [place], [place] [phone] Referral ID Status Reason Start Date Expiration Date Visits Requested Visits Authorized [id number] Authorized PCP Requested Referral 02/29/2024 01/28/2025 1 1 Specialty Diagnoses / Procedures Referred By Zeeshan t Referred To Contact Diagnoses Pulmonary edema w/congestive heart failure w/preserved LV function (CMS/HCC) Procedures Stress test with myocardial perfusion Tiffanie Wright DO [address] [place] [address] Referral ID Status Reason Start Date Expiration Date V isits Requested Visits Authorized [id number] Pending Review 12/12/2023 06/09/2024 3 3 Additional Source Comments (unrecognized sect ion and content) No Status Records FoundNo Status Records FoundNo Status Records FoundNo Status Records FoundNo Status Records FoundNo Status Records FoundNo Status Records Found INFORMATION SOURCE (unrecogn ized section and content) DATE CREATED AUTHOR 08/07/2017 [facility] DATE CREATED AUTHOR AUTHOR'S ORGANIZ ATION 08/07/2017 [facility] DATE CREATED AUTHOR AUTHOR'S ORGANIZ ATION 02/01/2021 [facility] DATE CREATED AUTHOR AUTHOR'S ORGANIZ ATION 04/22/2021 [facility] DATE CREATED AUTHOR AUTHOR'S ORGANIZ ATION 01/07/2024 [facility] DATE CREATED AUTHOR AUTHOR'S ORGANIZ ATION 08/13/2024 [facility] d[facility] Specialists EPIC DATE CREATED AUTHOR AUTHOR'S ORGANIZ ATION 09/02/2024 [facility] Reason for Visit (unrecogniz ed section and content) Reason Comments BP Follow Up Medication Check Reason Comments Five-week office visit Reason Comments Results Reason Comments New Patient Reason Comments Hospital Follow-up Reason Comments Follow Up Reason Comments Radiology CT Specialty Diagnoses / Procedures Referred By Contac t Referred To Contact CT IMAGING Diagnoses Abnormal stress test Procedures CTA CORONARY W IVCON CTA HRT CORNRY ART/BYPASS GRFTS CONTRST 3D POST Mayte Ahn MD [address] [place] [address] Phone: tel: fax: [facility] [place] [phone] Referral ID Status Reason Start Date Expiration Date V isits Requested Visits Authorized [id number] Closed Auto-Generate d Referral 01/29/2024 02/27/2025 1 1 Reason Comments Patient Education Reason Comments Six-month office visit Care Teams (unrecognized sec tion and content) Compatibility Test Engineer Relationship Specialty Start Date End Date Tiffanie Wright DO [address] [facility] [address] [place] [address] PCP - General Internal Medicine 06/20/22 Compatibility Test Engineer Relationship Specialty Start Date End Date Tiffanie Wright DO [address] [place] [address] PCP - General Internal Medicine 06/20/22 Team Status: Active Member Role Status Dates Tiffanie Wright DO Primary Care Provider Active Team Status: Active Member Role Status Dates Mak Zapien DO Attending Provider Active Sta rt: November 05, 2023 Team Status: Inactive Member Role Status Dates Tiffanie Wright DO Primary Care Provide r, Attending Provider Active Start: December 12, 2023 End: December 12, 2023 Team Status: Active Member Role Status Dates Tiffanie Wright DO Primary Care Provide r, Other Provider Active Start: December 12, 2023 Bairon Villarreal MD Attending Provider Active Start: December 12, 2023 Compatibility Test Engineer Relationship Specialty Start Date End Date Tiffanie Wright DO [address] [place] [address] PCP - General Internal Medicine 06/20/22 Compatibility Test Engineer Relationship Specialty Start Date End Date Selma Owens CNP [address] [place] [address] PCP - General Internal Medicine 01/25/24 Tiffanie Wright DO [address] [place] [address] Internal Medicine 01/25/24 Compatibility Test Engineer Relationship Specialty Start Date End Date Selma Owens CNP [address] [place] [address] PCP - General Internal Medicine 01/25/24 Tiffanie Wright DO [address] [place] [address] Internal Medicine 01/25/24 Compatibility Test Engineer Relationship Specialty Start Date End Date Selma Owens CNP [address] [place] [address] PCP - General Internal Medicine 01/25/24 Tiffanie Wright DO [address] [place] [address] Internal Medicine 01/25/24 Compatibility Test Engineer Relationship Specialty Start Date End Date Tiffanie Wright DO [address] [place] [address] Internal Medicine 01/25/24 Compatibility Test Engineer Relationship Specialty Start Date End Date Tiffanie Wright DO [address] [place] [address] PCP - General Internal Medicine 06/20/22 Compatibility Test Engineer Relationship Specialty Start Date End Date Tiffanie Wright, DO [address] [place] [address] Internal Medicine 01/25/24 Compatibility Test Engineer Relationship Specialty Start Date End Date Tiffanie Wright, DO [address] [place] [address] Internal Medicine 01/25/24 Compatibility Test Engineer Relationship Specialty Start Date End Date Tiffanie Wright, DO [address] [place] [address] Internal Medicine 01/25/24 Compatibility Test Engineer Relationship Specialty Start Date End Date Tiffanie Wright DO [address] [place] [address] Internal Medicine 01/25/24 Compatibility Test Engineer Relationship Specialty Start Date End Date Tiffanie Wright DO [address] [place] [address] Internal Medicine 01/25/24 Compatibility Test Engineer Relationship Specialty Start Date End Date Tiffanie Wright DO [address] [place] [address] Internal Medicine 01/25/24 Mayte Ahn MD [address] [place] [address] Primary Staff Physician Cardiology 05/21/24 Compatibility Test Engineer Relationship Specialty Start Date End Date Tiffanie Wright DO [address] [place] [address] Internal Medicine 01/25/24 Mayte Ahn MD [address] [place] [address] Primary Staff Physician Cardiology 05/21/24 Compatibility Test Engineer Relationship Specialty Start Date End Date Tiffanie Wright DO [address] [place] [address] Internal Medicine 01/25/24 Mayte Ahn MD [address] [place] [address] Primary Staff Physician Cardiology 05/21/24 Compatibility Test Engineer Relationship Specialty Start Date End Date Tiffanie Wright DO [address] [place] [address] (work) PCP - General Internal Medicine 06/20/22 Goals (unrecognized section and content) Goals may be documented in a n alternate section Source Comments (unrecognize d section and content) In the event this informatio n is protected by the Federal Confidentiality of Alcohol and Drug Abuse Patient Records regulations: The Federal rules restrict any use of the information to criminally investigate or prosecute any alcohol or drug abuse patient.[facility] the event this information is protected by the Federal Confidentiality of Alcohol and Drug Abuse Patient Records regulations: The Federal rules restrict any use of the information to criminally investigate or prosecute any alcohol or drug abuse patient.[facility] the event this information is protected by the Federal Confidentiality of Alcohol and Drug Abuse Patient Records regulations: The Federal rules restrict any use of the information to criminally investigate or prosecute any alcohol or drug abuse patient.[facility] the event this information is protected by the Federal Confidentiality of Alcohol and Drug Abuse Patient Records regulations: The Federal rules restrict any use of the information to criminally investigate or prosecute any alcohol or drug abuse patient.[facility] the event this information is protected by the Federal Confidentiality of Alcohol and Drug Abuse Patient Records regulations: The Federal rules restrict any use of the information to criminally investigate or prosecute any alcohol or drug abuse patient.[facility] Center[facility] the event this information is protected by the Federal Confidentiality of Alcohol and Drug Abuse Patient Records regulations: The Federal rules restrict any use of the information to criminally investigate or prosecute any alcohol or drug abuse patient.[facility] the event this information is protected by the Federal Confidentiality of Alcohol and Drug Abuse Patient Records regulations: The Federal rules restrict any use of the information to criminally investigate or prosecute any alcohol or drug abuse patient.[facility] Center[facility] the event this information is protected by the Federal Confidentiality of Alcohol and Drug Abuse Patient Records regulations: The Federal rules restrict any use of the information to criminally investigate or prosecute any alcohol or drug abuse patient.[facility] CenterIn the event this information is protected by the Federal Confidentiality of Alcohol and Drug Abuse Patient Records regulations: The Federal rules restrict any use of the information to criminally investigate or prosecute any alcohol or drug abuse patient.[facility] CenterIn the event this information is protected by the Federal Confidentiality of Alcohol and Drug Abuse Patient Records regulations: The Federal rules restrict any use of the information to criminally investigate or prosecute any alcohol or drug abuse patient.[facility] CenterIn the event this information is protected by the Federal Confidentiality of Alcohol and Drug Abuse Patient Records regulations: The Federal rules restrict any use of the information to criminally investigate or prosecute any alcohol or drug abuse patient.[facility] CenterIn the event this information is protected by the Federal Confidentiality of Alcohol and Drug Abuse Patient Records regulations: The Federal rules restrict any use of the information to criminally investigate or prosecute any alcohol or drug abuse patient.[facility] FOR RECORDS PERTAINING TO PATIENTS WHO ARE [...] BE BASED ON THE PRIMARY CLINICAL RECORDS. [facility] [employer] [facility]. provides no warranty or guarantee of the accuracy or completeness of information in this document.
[2024-10-25 10:41] LABS: Alanine Aminotransferase 43 U/L (16-63); Albumin Globulin Ratio 1.1; Albumin Level 4.0 g/dL (3.4-5.0); Alkaline Phosphatase 129 U/L (46-116); Anion Gap 16.1; Aspartate Amino Transferase 25 U/L (15-37); Blood Urea Nitrogen 20.0 mg/dL (7.0-18.0); Calcium 9.1 mg/dL (8.5-10.1); Carbon Dioxide 23.0 mmol/L (21.0-32.0); Chloride 105 mmol/L (98-107); Estimated GFR (African America >60 (>=60 mL/min/1.73m^2); Estimated GFR (Non-African Ame >60 (>=60 mL/min/1.73m^2); Globulin 3.6 g/dL; Glucose 85 mg/dL (74-106); Potassium 4.1 mmol/L (3.5-5.1); Sodium 140 mmol/L (136-145); Total Protein 7.6 g/dL (6.4-8.2)
== END 2024-10-25 09:14 | disposition home or self-care (01) ==
PROVIDERS: PCP Internal Medicine; Visit Provider Internal Medicine
DX: E11.59 Type 2 diabetes mellitus with other circulatory complications (principal)
CPT/HCPCS: 36415; 80053; 83036